=== PATIENT | male | born 1955 | race Caucasian/White ===

== ENCOUNTER → 2016-03-08 | Outpatient (CLI) | payer OTHER ==
[~2016-03-08] MED LIST: LIDOCAINE 2% MDV 20 ML VIAL As Ordered ONE; LIDOCAINE W/EPINEPHRINE 1% 20ML VIAL As Ordered ONE; SODIUM BICARBONATE 8.4% INJ 50MEQ 50 ML VIAL As Ordered ONE
--- NOTE | 2016-03-08 15:22 | REPKIM ---
CLINICAL HISTORY: Proteinuria and worsening creatinine. The referring nephrology service has asked a diagnostic kidney biopsy. PROCEDURE PERFORMED: Percutaneous Biopsy Kidney INTERVENTIONALIST: Jaclyn Garcia MD MEDICAL RECEPTION SPECIALIST: MALENA Marquez CONSENT: The risks, benefits and alternatives to the procedure were explained to the patient and informed written consent was obtained from the patient. MEDICATIONS: Local Lidocaine EBL: 10 mL COMPLICATIONS: None immediate PROCEDURE/FINDINGS: The patient was placed in the prone position on the CT table. Time out procedure was performed. The left flank was prepped and draped in the usual sterile fashion. Using CT guidance, a 17-gauge introducer needle was advanced to the targeted lower pole of the left kidney, after infiltration of the skin and deep tissues with local anesthetic. Then using coaxial technique, six passes were made using an 18-gauge biopsy device. The core specimens sent to pathology. The introducer needle was then removed after additional local lidocaine with epi at the biopsy sites and along its tract. Immediate post biopsy CT showed small hemorrhage at the biopsy sites. Direct manual pressure was applied over the skin entrance site. A sterile dressing was applied. This procedure was performed using CT. The patient tolerated the procedure well and transferred to the recovery room in stable condition. Dr. Garcia was present. IMPRESSION: Successful core biopsy of the left kidney as described above. Plan: Close observation in the recovery room with follow up non-contrast CT abdomen study in 3-4 hours. cc: Yazmin Ndiaye MD [facility]
--- NOTE | 2016-03-08 21:21 | REP ---
Clinical: Status post renal biopsy. Comparison: 02/29/2016. Findings: There appears to be a small amount of hemorrhage along the inferior aspect of the left kidney extending into the left perinephric pararenal space which measures maximally approximately 3.5 x 1.4 cm. Mild associated left perinephric stranding is appreciated as well. The bilateral kidneys are otherwise stable and grossly unremarkable by noncontrast evaluation in comparison to 02/29/2016. There appears to be peripancreatic stranding which may also involve the adjacent duodenum representing a new finding compared to prior examination and suspicious for pancreatitis/duodenitis. Liver, spleen, collapsed gallbladder, and bilateral adrenal glands are normal. The enteric system is unremarkable and without obstruction or acute inflammatory process. This demonstrates normal bladder and age appropriate prostate/seminal vesicles. No pelvic free fluid. No free air. No significant adenopathy. Osseous structures demonstrate age-related changes without focal osseous abnormality. Lung bases are clear. Impression: 1. Small amount of the left perinephric hemorrhage consistent with recent renal biopsy. 2. Peripancreatic stranding suspicious for acute pancreatitis/duodenitis and correlation is recommended. Signed by Terrence Gilliland MD 03/08/2016 09:12 P
== END | disposition home or self-care (01) ==
LOC: M IRPRO 07:56
PROVIDERS: ATTEND Internal Medicine Nephrology
DX: R80.8 Other proteinuria (principal)

== ENCOUNTER → 2016-05-05 | Outpatient (REF) | payer OTHER | LOC: M LAB REF 17:00 | PROVIDERS: ATTEND Internal Medicine Nephrology | DX: N04.2 Nephrotic syndrome with diffuse membranous glomerulonephritis (principal) ==

== ENCOUNTER → 2016-05-29 | Outpatient (CLI) | payer OTHER ==
[~2016-05-29] VITALS: Ht 170.2 cm; Wt 77.1 kg
[~2016-05-29] MED LIST changes: +AMLO10TA2 PO; +CRES5TAB PO; -LIDOCAINE 2% MDV 20 ML VIAL As Ordered ONE; -LIDOCAINE W/EPINEPHRINE 1% 20ML VIAL As Ordered ONE; +NS 1,000 ML IV SCH; +SERT-138 PO; -SODIUM BICARBONATE 8.4% INJ 50MEQ 50 ML VIAL As Ordered ONE; +SYMB16INH INH; +TORS10TA3 PO
--- NOTE | 2016-05-29 09:40 | ROOR ---
Patient Name: Ino Erickson Procedure Date: 05/29/2016 9:21 AM Date of : 1955 Age: 61 Room: [facility] Gender: Male Note Status: Finalized Procedure: Colonoscopy Indications: High risk colon cancer surveillance: Personal history of colonic polyps, Last colonoscopy: December 2012 Providers: Jignesh CROSS MD Referring MD: LEYDI MCKEON MD Requesting Provider: Medicines: Monitored Anesthesia Care Complications: No immediate complications. Procedure: Pre-Anesthesia Assessment: - The heart rate, respiratory rate, oxygen saturations, blood pressure, adequacy of pulmonary ventilation, and response to care were monitored throughout the procedure. The Colonoscope was introduced through the anus and advanced to the cecum, identified by appendiceal orifice and ileocecal valve. The colonoscopy was performed without difficulty. The patient tolerated the procedure well. The quality of the bowel preparation was good. Findings: The perianal and digital rectal examinations were normal. A 4 mm polyp was found in the cecum. The polyp was sessile. The polyp was removed with a cold snare. Resection and retrieval were complete. Internal hemorrhoids were found during retroflexion. The hemorrhoids were medium-sized. The exam was otherwise without abnormality on direct and retroflexion views. (Exam: Complete, Prep: Good or Excellent.) Impression: - One 4 mm polyp in the cecum, removed with a cold snare. Resected and retrieved. - Internal hemorrhoids. - The examination was otherwise normal on direct and retroflexion views. Recommendation: - Repeat colonoscopy in 5 years for surveillance based on personal history of previous adenomatous polyps. Jignesh Cross MD Jignesh CROSS MD 05/29/2016 9:40:11 AM This report has been signed electronically. Number of Addenda: 0 Note Initiated On: 05/29/2016 9:21 AM Estimated Blood Loss: Estimated blood loss: none.
[2016-05-29 09:55] VITALS: BP 143/87
== END ==
LOC: M OPP 08:39
PROVIDERS: ATTEND Internal Medicine Gastroenterology
DX: Z12.11 Encounter for screening for malignant neoplasm of colon (principal); Z86.010 Personal history of colon polyps; D12.0 Benign neoplasm of cecum; K64.8 Other hemorrhoids; I12.9 Hypertensive chronic kidney disease with stage 1 through stage 4 chronic kidney disease, or unspecified chronic kidney disease; N18.4 Chronic kidney disease, stage 4 (severe); E78.00 Pure hypercholesterolemia, unspecified; F41.9 Anxiety disorder, unspecified; J30.2 Other seasonal allergic rhinitis; R80.9 Proteinuria, unspecified; Z79.899 Other long term (current) drug therapy; Z87.891 Personal history of nicotine dependence

== ENCOUNTER → 2016-09-08 | Outpatient (REF) | payer OTHER ==
[~2016-09-08] MED LIST changes: -NS 1,000 ML IV SCH
[2016-09-08 18:17] LABS: BASO # 0.1 K/mm3 (0.0-0.2); BASO % 0.9 % (0.0-1.0); EOS # 0.3 K/mm3 (0.0-0.50); EOS % 3.4 % (0.0-3.0); LARGE UNSTAINED CELL # 0.2 K/mm3 (0.0-0.4); LARGE UNSTAINED CELL % 2.4 % (0.0-4.0); LYMPH # 1.7 K/mm3 (1.5-4.5); LYMPH % 17.9 % (24.0-44.0); MEAN CORPUSCULAR HEMOGLOBIN 31.5 pg (27.0-33.0); MEAN CORPUSCULAR HGB CONC 32.2 g/dl (32.0-36.5); MEAN CORPUSCULAR VOLUME 97.7 fl (80.0-96.0); MONO # 0.7 K/mm3 (0.0-0.8); MONO % 7.1 % (0.0-5.0); NEUTROPHILS # 6.4 K/mm3 (1.8-7.7); NEUTROPHILS % 68.3 % (36.0-66.0); PLATELET COUNT, AUTOMATED 307 k/mm3 (150-450); RED CELL DISTRIBUTION WIDTH 12.7 % (11.5-14.5); WHITE BLOOD COUNT 9.4 K/mm3 (4.0-10.0)
[2016-09-08 18:31] LABS: ALBUMIN 2.1 GM/DL (3.2-5.2); CALCIUM LEVEL 8.1 MG/DL (8.8-10.2); CREATININE FOR GFR 3.78 MG/DL (0.70-1.30); GLOMERULAR FILTRATION RATE 17.4 (>49); MAGNESIUM LEVEL 2.1 MG/DL (1.8-2.4); PHOSPHORUS LEVEL 4.6 MG/DL (2.5-4.9); URIC ACID 6.7 MG/DL (3.5-7.2)
[2016-09-08 18:33] LABS: POTASSIUM SERUM 5.2 MEQ/L (3.5-5.1)
== END ==
LOC: M LABSMT 17:04
PROVIDERS: ATTEND Internal Medicine Nephrology
DX: N03.2 Chronic nephritic syndrome with diffuse membranous glomerulonephritis (principal); N18.4 Chronic kidney disease, stage 4 (severe)

== ENCOUNTER → 2016-10-20 | Outpatient (REF) | payer OTHER ==
[2016-10-20 18:39] LABS: ALBUMIN 2.1 GM/DL (3.2-5.2); ALBUMIN/GLOBULIN RATIO 0.84 (1.00-1.93); ALKALINE PHOSPHATASE 57 U/L (45-117); ALT/SGPT 20 U/L (12-78); AST/SGOT 17 U/L (15-37); BILIRUBIN,DIRECT < 0.1 MG/DL (0.0-0.2); BILIRUBIN,TOTAL 0.2 MG/DL (0.2-1.0); CHOLESTEROL LEVEL 232 MG/DL (<200); TOTAL PROTEIN 4.6 GM/DL (6.4-8.2); TRIGLYCERIDES LEVEL 159 MG/DL (<150)
== END ==
LOC: M LAB REF 16:55
PROVIDERS: ATTEND Internal Medicine Nephrology
DX: N04.2 Nephrotic syndrome with diffuse membranous glomerulonephritis (principal)

== ENCOUNTER → 2016-12-25 | Outpatient (CLI) | payer OTHER | LOC: M LAB 09:47 | PROVIDERS: ATTEND Transplant Surgery | DX: Z01.818 Encounter for other preprocedural examination (principal); N18.6 End stage renal disease ==

== ENCOUNTER → 2017-01-12 | Outpatient (CLI) | payer OTHER ==
--- NOTE | 2017-01-12 16:02 | REP ---
Bilateral upper extremity venous duplex ultrasound: Vein mapping. History: End-stage renal disease. Findings: Incidental note is made of some lymph nodes in the left lower neck, the largest of which measures 1.0 x 0.9 x 1.7 cm. On the right normal triphasic flow is seen in the upper extremity arteries including axillary, brachial, radial and ulnar. On the left biphasic flow is seen in the axillary and triphasic flow is seen in the brachial, radial and ulnar. The right axillary artery is 7 mm, right brachial 4, right radial 1.8 mm and right ulnar diameter 1.5 mm. The left axillary artery is 4.7 mm in diameter, brachial 4.0, radial 2.0, and ulnar 1.3 mm. Arterial velocity flow chart right :Right axillary 78 cm/S Right brachial 76 Right radial 51 Right ulnar 47 Left upper extremity arterial velocity flow chart: Left axillary 102 cm/s Left brachial 54 Radial 37 Ulnar 40 There is no evidence of venous thrombosis in the upper extremity veins in either side. Venous diameter chart right arm: Upper humerus - basilic 3.2 cephalic 4.1 Lower humerus basilic 2.5 - cephalic 3.1 Antecubital fossa right basilic 2.1 cephalic 4.2 Upper forearm basilic 1.7 cephalic 1.9 Lower forearm basilic 1.3 cephalic 1.5 Wrist 1.2 and 1.3 Median cubital 3.6 mm Venous diameter chart left arm: Upper humerus basilic 3.0 - cephalic 2.4 mm Lower humerus basilic 1.9 cephalic 2.8 Antecubital basilic 2.2 cephalic 4.2 Upper forearm basilic 1.9 cephalic 2.4 Lower forearm basilic 1.1 cephalic 1.0 Wrist 0.9 and 0.5 Median cubital 1.6 mm Impression: Bilateral upper extremities Doppler ultrasound vein mapping. Signed by Gregorio Saleem MD 01/12/2017 04:53 P
== END ==
LOC: M RAD 12:18
PROVIDERS: ATTEND Surgery Vascular Surgery
DX: N18.6 End stage renal disease (principal)

== ENCOUNTER 2017-02-02 08:43 | Day surgery (SDC) | payer OTHER ==
[~2017-02-02] VITALS: Ht 167.6 cm; Wt 72.3 kg
[~2017-02-02 08:43] MED LIST changes: +ALLE180T33 PO; +ASPI1TAB PO; +BLEP10SO OD; +BYST2.5T2 PO; +DRIS50002 PO; +LISI2.5T3 PO; +[UNRECOGNIZED DRUG - CODE] EX
[2017-02-02] MEDS ORDERED: NS 1,000 ML IV ONE (09:00)
--- NOTE | 2017-02-02 12:17 | ECGEPIP ---
Stationary ECG Study [facility] Test Date: 2017-02-02 Pat Name: BARBARA KRISHNA Department: Room: - Gender: M Phone Counselor: TRANG : 1955 Requested By: John Alvarado Order Number: [id number] Reading MD: Loreta Garcia Measurements Intervals [place] Rate: 60 P: 52 [place]: 179 QRS: 72 QRSD: 95 T: 54 QT: 366 QTc: 368 Interpretive Statements SINUS RHYTHM NORMAL Electronically Signed On 02-02-2017 12:16:59 EST by Loreta Garcia
[2017-02-02] MEDS ORDERED: BUPIVACAINE HCL 0.5% 30 ML VIAL As Ordered ONE (12:44)
[2017-02-02] MEDS ORDERED: HEPARIN SOD (PORCINE) 5000 UNITS/ML VIAL As Ordered ONE ×2 (12:44→14:17)
[2017-02-02] MEDS ORDERED: LIDOCAINE 1% SDV INJ 30 ML VIAL As Ordered ONE (12:44)
[2017-02-02] MEDS ORDERED: PHENYLEPHRINE INJ 10MG/ML VIAL (J2370) As Ordered ONE (13:53)
[2017-02-02] MEDS ORDERED: PROPOFOL 200 MG/20 ML VIAL As Ordered ONE ×2 (13:53→14:02)
[2017-02-02] MEDS ORDERED: ePHEDrine SULFATE 25 MG/5 ML(5MG/ML) SYRINGE As Ordered ONE (14:01)
[2017-02-02] MEDS ORDERED: MIDAZOLAM INJ 2 MG/2 ML VIAL (J2250) As Ordered ONE ×2 (14:02→14:14)
[2017-02-02] MEDS ORDERED: fentaNYL 100 MCG/2 ML INJECTION (J3010) As Ordered ONE ×2 (14:02→14:16)
[2017-02-02] MEDS ORDERED: ONDANSETRON 4MG/2ML VIAL (J2405) As Ordered ONE (14:02)
[2017-02-02] MEDS ORDERED: LIDOCAINE 2% INJ 100 MG/5 ML SDV (FOR ANES.) As Ordered ONE (14:02)
[2017-02-02 15:48] VITALS: BP 143/83
--- NOTE | 2017-02-23 11:17 | RO ---
DATE OF PROCEDURE: 02/02/2017 PREPROCEDURE DIAGNOSIS: Chronic renal insufficiency nearing end stage renal disease. POSTPROCEDURE DIAGNOSIS: Chronic renal insufficiency nearing end stage renal disease. PROCEDURE: Left radiocephalic arteriovenous fistula formation. ATTENDING SURGEON: Dr. Jeff Reagan SOUND TECHNICIAN: None. INDICATION: The patient is a 61-year-old male with chronic renal insufficiency nearing end stage renal disease, who will require access for dialysis in the future. The patient was evaluated and felt to be a good candidate for a left radiocephalic, possible left brachiocephalic arteriovenous fistula. Risks, benefits, and alternative treatment options were discussed with the patient. ANESTHESIA: Local MAC. ESTIMATED BLOOD LOSS: 50 mL. IV FLUID: 1000 mL. HEPARIN: 5000 units. COMPLICATIONS: None. DRAINS: None. SPECIMENS: None. IMPLANTS: None. PROCEDURE: The patient was taken to the operating room and placed on the operating room table and then prepped and draped in a standard surgical fashion. Two incisions were made at the wrist, one over the cephalic vein and one over the radial artery. The cephalic vein and radial artery were dissected free sharply and then encircled with Vesseloops. Cephalic vein was transected as far as distal as possible with the remnant ligated with an #0 silk suture. The cephalic vein was then dilated with heparinized saline and brought to the radial artery to a tunnel between the two incisions and then anastomosed to the radial artery in an end to side fashion using #6-0 Prolene suture. At the completion of the anastomosis, there was poor flow in the vein and the anastomosis was taken down and redone with better flow noted in the fistula at the completion of the second anastomosis. Hemostasis was obtained, after which the incisions were closed using #3-0 Monocryl to approximate the skin in a running subcuticular fashion. Steri-Strips and dressings were applied. Patient tolerated the procedure well. All instrument, sponge and needle counts were correct at the end of the case. There were no complications. Dr. Reagan was present for and directed the entire case. Patient was transferred to the holding area and subsequently discharged in stable condition.
== END 2017-02-02 15:49 | disposition home or self-care (01) ==
LOC: M SDC 08:43
PROVIDERS: ATTEND Surgery Vascular Surgery
DX: N18.4 Chronic kidney disease, stage 4 (severe) (principal); I12.9 Hypertensive chronic kidney disease with stage 1 through stage 4 chronic kidney disease, or unspecified chronic kidney disease; E78.00 Pure hypercholesterolemia, unspecified; J45.909 Unspecified asthma, uncomplicated; J30.9 Allergic rhinitis, unspecified; Z79.899 Other long term (current) drug therapy; Z79.82 Long term (current) use of aspirin; Z87.891 Personal history of nicotine dependence
CPT/HCPCS: 36415; 36821; 84132; 93005; J2250; J2370; J2405; J3010

== ENCOUNTER → 2017-03-17 | Outpatient (CLI) | payer OTHER | LOC: M LAB 12:03 | DX: Z01.818 Encounter for other preprocedural examination (principal) ==

== ENCOUNTER → 2017-03-17 | Outpatient (CLI) | payer OTHER ==
[2017-03-17 13:08] LABS: CHOLESTEROL LEVEL 188 MG/DL (<200); CHOLESTEROL RISK RATIO 3.686 (<5); FREE T4 0.69 NG/DL (0.76-1.46); HDL CHOLESTEROL 51 MG/DL (>40); LDL CHOLESTEROL 108.4 MG/DL (<100); NON-HDL-C 137 MG/DL; TRIGLYCERIDES LEVEL 143 MG/DL (<150)
== END ==
LOC: M LAB 11:53
DX: E78.5 Hyperlipidemia, unspecified (principal)

== ENCOUNTER → 2017-03-23 | Outpatient (REF) | payer OTHER ==
[2017-03-23 21:11] LABS: FERRITIN 123 NG/ML (26-388); IRON (FE) 64 UG/DL (65-175); PERCENT SATURATION 28.3 % (19.7-50.0); TOTAL IRON BINDING CAPACITY 226 UG/DL (250-450)
[2017-03-26 11:47] LABS: VITAMIN B12 LEVEL 350 PG/ML
[2017-03-26 11:49] LABS: FOLATE 7.3 NG/ML
== END ==
LOC: M LAB REF 17:18
DX: D64.9 Anemia, unspecified (principal)

== ENCOUNTER → 2017-03-23 | Outpatient (CLI) | payer OTHER | LOC: M LAB 10:36 | DX: Z01.818 Encounter for other preprocedural examination (principal); Z76.82 Awaiting organ transplant status ==

== ENCOUNTER → 2017-04-27 | Outpatient (CLI) | payer OTHER | LOC: M LAB 12:53 | DX: Z01.818 Encounter for other preprocedural examination (principal) ==

== ENCOUNTER → 2017-05-18 | Outpatient (CLI) | payer OTHER ==
[2017-05-18 17:57] LABS: BASO # 0.1 10^3/uL (0.0-0.2); EOS # 0.3 10^3/uL (0.0-0.50); EOS % 4.1 % (0.0-3.0); HEMATOCRIT 38.3 % (42.0-52.0); HEMOGLOBIN 11.9 g/dl (14.0-18.0); IMMATURE GRANULOCYTE % 0.4 % (0-3.0); LYMPH # 1.6 10^3/uL (1.5-4.5); LYMPH % 20.5 % (24.0-44.0); MEAN CORPUSCULAR HEMOGLOBIN 29.9 pg (27.0-33.0); MEAN CORPUSCULAR HGB CONC 31.1 g/dl (32.0-36.5); MEAN CORPUSCULAR VOLUME 96.2 fl (80.0-96.0); MONO # 0.7 10^3/uL (0.0-0.8); MONO % 8.2 % (0.0-5.0); NEUTROPHILS # 5.2 10^3/uL (1.8-7.7); NEUTROPHILS % 65.8 % (36.0-66.0); PLATELET COUNT, AUTOMATED 253 10^3/uL (150-450); RED BLOOD COUNT 3.98 10^6/uL (4.30-6.10); WHITE BLOOD COUNT 7.9 10^3/uL (4.0-10.0)
== END ==
LOC: M SMT 14:24
DX: R59.0 Localized enlarged lymph nodes (principal)
CPT/HCPCS: 85025

== ENCOUNTER → 2017-06-01 | Outpatient (CLI) | payer OTHER | LOC: M LAB 13:44 | DX: Z01.818 Encounter for other preprocedural examination (principal) | CPT/HCPCS: 36415 ==

== ENCOUNTER → 2017-06-01 | Outpatient (CLI) | payer OTHER | LOC: M RAD 13:21 | DX: N18.4 Chronic kidney disease, stage 4 (severe) (principal); R59.0 Localized enlarged lymph nodes | CPT/HCPCS: 70490 ==

== ENCOUNTER → 2017-07-30 | Outpatient (CLI) | payer OTHER ==
[2017-07-30 11:14] LABS: INR 0.89; PROTHROMBIN TIME 12.1 SECONDS (12.4-14.5)
[2017-07-30 11:15] LABS: PARTIAL THROMBOPLASTIN TIME 26.4 SECONDS (26.8-37.9)
== END ==
LOC: M LAB 10:42
DX: C83.11 Mantle cell lymphoma, lymph nodes of head, face, and neck (principal)
CPT/HCPCS: 85610

== ENCOUNTER → 2017-08-10 | Outpatient (REF) | payer OTHER ==
[2017-08-10 14:03] LABS: CHOLESTEROL LEVEL 227 MG/DL (<200); CHOLESTEROL RISK RATIO 4.053 (<5); HDL CHOLESTEROL 56 MG/DL (>40); LDL CHOLESTEROL 127.2 MG/DL (<100); NON-HDL-C 171 MG/DL; TRIGLYCERIDES LEVEL 219 MG/DL (<150)
== END ==
LOC: M LAB REF 13:20
DX: N18.5 Chronic kidney disease, stage 5 (principal)

== ENCOUNTER → 2017-10-12 | Outpatient (CLI) | payer OTHER | LOC: M ONCR 13:16 | DX: Z08 Encounter for follow-up examination after completed treatment for malignant neoplasm (principal); C83.11 Mantle cell lymphoma, lymph nodes of head, face, and neck | CPT/HCPCS: G0463 ==

== ENCOUNTER → 2017-10-30 | Outpatient (CLI) | payer OTHER | LOC: M PLARAD 12:12 | DX: C83.11 Mantle cell lymphoma, lymph nodes of head, face, and neck (principal) | CPT/HCPCS: 78815 ==

== ENCOUNTER 2017-11-06 13:57 | Outpatient (RCR) | payer OTHER | END 2017-12-02 | LOC: M ONCR 13:57 | DX: C83.11 Mantle cell lymphoma, lymph nodes of head, face, and neck (principal) | CPT/HCPCS: 77300 ==

== ENCOUNTER 2017-12-03 08:04 | Outpatient (RCR) | payer OTHER | END 2018-01-02 | LOC: M ONCR 12-04 08:01 | DX: C83.11 Mantle cell lymphoma, lymph nodes of head, face, and neck (principal) | CPT/HCPCS: 77336 ==

== ENCOUNTER → 2017-12-14 | Outpatient (REF) | payer OTHER ==
[2017-12-14 18:28] LABS: CHOLESTEROL LEVEL 169 MG/DL (<200); CHOLESTEROL RISK RATIO 3.188 (<5); HDL CHOLESTEROL 53 MG/DL (>40); LDL CHOLESTEROL 91 MG/DL (<100); NON-HDL-C 116 MG/DL; TRIGLYCERIDES LEVEL 125 MG/DL (<150)
[2017-12-17 10:28] LABS: HEPATITIS B SURFACE ANTIBODY NEGATIVE (POSITIVE)
[2017-12-17 10:39] LABS: HEPATITIS B SURFACE ANTIGEN NEGATIVE (NEGATIVE)
[2017-12-17 11:07] LABS: HEPATITIS C VIRUS ABY INDEX < 0.0 INDEX (<0.8)
[2017-12-17 11:08] LABS: HEPATITIS B CORE ANTIBODY IGM NEGATIVE (NEGATIVE)
== END ==
LOC: M LAB REF 16:45
DX: N18.5 Chronic kidney disease, stage 5 (principal)
CPT/HCPCS: 86706

== ENCOUNTER → 2017-12-16 | Outpatient (REF) | payer OTHER ==
[2017-12-17 14:07] LABS: CREATININE, URINE 56.8 MG/DL; URINE TOTAL PROTEIN 208.4 MG/DL (0-12)
[2017-12-17 21:38] LABS: CREATININE 24 HOUR, URINE 1050.8 MG/24HR (950-2500); TOTAL PROTEIN 24 HOUR URINE 3855.4 MG/24HR (50-150); TOTAL VOLUME, URINE 1850 ML
== END ==
LOC: M LAB REF 13:02
DX: N18.4 Chronic kidney disease, stage 4 (severe) (principal)

== ENCOUNTER → 2017-12-28 | Outpatient (CLI) | payer OTHER ==
[~2017-12-28] MED LIST changes: -ALLE180T33 PO; -AMLO10TA2 PO; -ASPI1TAB PO; -BLEP10SO OD; -BYST2.5T2 PO; -CRES5TAB PO; -DRIS50002 PO; +ISOVUE-300 61% 50ML VIAL (Q9967) As Ordered; +LIDOCAINE 2% MDV 20 ML VIAL As Ordered; -LISI2.5T3 PO; +MIDAZOLAM INJ 2 MG/2 ML VIAL (J2250) As Ordered; -SERT-138 PO; -SYMB16INH INH; -TORS10TA3 PO; -[UNRECOGNIZED DRUG - CODE] EX; +fentaNYL 100 MCG/2 ML INJECTION (J3010) As Ordered
== END | disposition home or self-care (01) ==
LOC: M IRPRO 09:00
DX: T82.858A Stenosis of other vascular prosthetic devices, implants and grafts, initial encounter (principal); N18.9 Chronic kidney disease, unspecified
CPT/HCPCS: 36902

== ENCOUNTER → 2018-02-01 | Outpatient (CLI) | payer OTHER | LOC: M ONCR 12:42 | DX: C83.11 Mantle cell lymphoma, lymph nodes of head, face, and neck (principal) ==

== ENCOUNTER → 2018-02-01 | Outpatient (CLI) | payer OTHER ==
[~2018-02-01] MED LIST changes: -MIDAZOLAM INJ 2 MG/2 ML VIAL (J2250) As Ordered; -fentaNYL 100 MCG/2 ML INJECTION (J3010) As Ordered
== END ==
LOC: M IRPRO 06:26
DX: N18.6 End stage renal disease (principal); Z53.8 Procedure and treatment not carried out for other reasons

== ENCOUNTER → 2018-02-19 | Outpatient (CLI) | payer OTHER ==
[~2018-02-19] MED LIST changes: +ALLE180T33 PO; +AMLO10TA5 PO; +ASPI1TAB PO; +BLEP10SO OD; +BYST2.5T2 PO; +CALC1CAP; +CRES5TAB PO; +DRIS50003 PO; -ISOVUE-300 61% 50ML VIAL (Q9967) As Ordered; +LEVO50TA5; -LIDOCAINE 2% MDV 20 ML VIAL As Ordered; +LISI2.5T5 PO; +SERT-138 PO; +SODIUM CHLORIDE 0.9% INJ 10 ML SYR IV PRN; +SYMB16INH INH; +TORS10TA3 PO; +[UNRECOGNIZED DRUG - CODE] EX
== END ==
LOC: M ONCM 12:54
PROVIDERS: ATTEND Radiology Radiation Oncology
DX: C83.11 Mantle cell lymphoma, lymph nodes of head, face, and neck (principal)
CPT/HCPCS: 96523; J1642

== ENCOUNTER → 2018-02-19 | Outpatient (CLI) | payer OTHER ==
[~2018-02-19] MED LIST changes: +AMLO10TA4 PO; -AMLO10TA5 PO; -SODIUM CHLORIDE 0.9% INJ 10 ML SYR IV PRN
--- NOTE | 2018-02-19 16:01 | REP ---
PET/CT: History: Restaging mantel cell lymphoma. Comparisons: Comparison PET-CT studies are from October 30, 2017 and July 16, 2017. TECHNIQUE: 1 hour 9 minutes following the intravenous injection of a 7.8 mCi dose of F-18 FDG, three-dimensional PET scintigraphy is acquired from the skull vertex to the proximal thighs. Triplanar noncontrast CT scanning is acquired through the same anatomic range for attenuation correction, and image registration with scan parameters optimized to minimize radiation exposure to the patient. PET scintigraphy and CT datasets were fused and displayed on a workstation with multiplanar and projection display capability. PET/CT Findings: Head and neck soft tissues remain unremarkable. No abnormal hypermetabolic sandee uptake is seen in the head and neck on either side. There is a right-sided Hbibgl-O-Cxpr catheter. No mediastinal or hilar hypermetabolic sandee uptake is seen. No abnormal hypermetabolic uptake is seen within the thorax. Stable perifissural nodule is seen on the right without discernible FDG accumulation. No other abnormal pulmonary parenchymal FDG accumulation is seen. In the abdomen and pelvis, there is normal hepatic, splenic, gastrointestinal, and genitourinary FDG accumulation. No abnormal sandee uptake is seen. Impression: Negative PET scintigraphy, unchanged from the comparison study of October 30, 2017. No abnormal hypermetabolic uptake. Electronically Signed by Gregorio Saleem MD 02/19/2018 04:15 P
== END ==
LOC: M PLARAD 09:52
PROVIDERS: ATTEND Internal Medicine Hematology & Oncology
DX: C83.11 Mantle cell lymphoma, lymph nodes of head, face, and neck (principal)
CPT/HCPCS: 78815; A9552

== ENCOUNTER → 2018-02-22 | Outpatient (CLI) | payer OTHER ==
[~2018-02-22] MED LIST changes: -AMLO10TA4 PO; +AMLO10TA5 PO
--- NOTE | 2018-02-22 21:01 | ECGEPIP ---
Stationary ECG Study [facility] Test Date: 2018-02-22 Pat Name: BARBARA KRISHNA Department: Room: - Gender: M Personnel Security Assistant: [facility] : 1955 Requested By: REYNOLD Nash Order Number: [id number] Reading MD: Santo Burton Measurements Intervals [place] Rate: 74 P: 56 MT: 173 QRS: 65 QRSD: 105 T: 61 QT: 361 QTc: 401 Interpretive Statements SINUS RHYTHM NO CHANGE SINCE 02/02/17 Electronically Signed On 02-22-2018 21:01:02 EST by Santo Burton
== END ==
LOC: M EKG 16:56
PROVIDERS: ATTEND Anesthesiology
DX: Z01.818 Encounter for other preprocedural examination (principal)

== ENCOUNTER 2018-03-01 12:29 | Day surgery (SDC) | payer OTHER ==
[~2018-03-01] VITALS: Ht 167.6 cm; Wt 64.0 kg
[2018-03-01 13:14] LABS: CALCIUM LEVEL 9.4 MG/DL (8.8-10.2); CREATININE FOR GFR 3.65 MG/DL (0.70-1.30); POTASSIUM SERUM 5.2 MEQ/L (3.5-5.1)
[2018-03-01] MEDS ORDERED: LR 1,000 ML IV ONE (13:15)
[2018-03-01] MEDS ORDERED: MIDAZOLAM INJ 2 MG/2 ML VIAL (J2250) As Ordered ONE (14:02)
[2018-03-01] MEDS ORDERED: PROPOFOL 200 MG/20 ML VIAL As Ordered ONE (14:02)
[2018-03-01] MEDS ORDERED: LIDOCAINE 2% INJ 100 MG/5 ML SDV (FOR ANES.) As Ordered ONE (14:02)
[2018-03-01] MEDS ORDERED: fentaNYL 100 MCG/2 ML INJECTION (J3010) As Ordered ONE (14:02)
[2018-03-01] MEDS ORDERED: NS 0.45% 1,000 ML IV SCH (14:30)
[2018-03-01] MEDS ORDERED: LIDOCAINE 1% SDV INJ 30 ML VIAL As Ordered ONE (17:45)
[2018-03-01] MEDS ORDERED: ISOVUE-300 61% 50ML VIAL (Q9967) As Ordered ONE (17:46)
[2018-03-01] MEDS ORDERED: BUPIVACAINE HCL 0.5% 30 ML VIAL As Ordered ONE (17:46)
[2018-03-01] MEDS ORDERED: HEPARIN SOD (PORCINE) 5000 UNITS/ML VIAL As Ordered ONE (17:46)
[2018-03-01 19:45] VITALS: BP 169/78
--- NOTE | 2018-03-29 09:05 | RO ---
DATE OF PROCEDURE: 03/01/2018 PREOPERATIVE DIAGNOSES: Chronic renal insufficiency nearing end-stage renal disease, thrombosed left brachiocephalic arterial radiocephalic arteriovenous fistula. POSTOPERATIVE DIAGNOSES: Chronic renal insufficiency nearing end-stage renal disease, thrombosed left brachiocephalic arterial radiocephalic arteriovenous fistula. PROCEDURE: Left brachiocephalic arteriovenous fistula creation. SURGEON: Dr. Jeff Reagan BAG MACHINE HELPER: Jenny Moy PA-C ANESTHESIA: Local, monitored anesthesia care (MAC). INDICATION: The patient is a 62-year-old male with chronic renal insufficiency nearing the requirement for renal replacement therapy and end-stage renal disease, wishes to undergo hemodialysis and will undergo creation of a left brachiocephalic arteriovenous fistula for hemodialysis and for renal replacement therapy. The procedure was described and explained to the patient in detail, including drawing of pictures demonstrating the procedure and anatomy. Risks, benefits, and alternative treatment options were discussed with the patient. Alternative treatment options included, but were not limited to, no intervention. Benefits included, but were not limited to, creation of access for hemodialysis access when the time arises for renal replacement therapy, avoiding placement of a tunneled central venous catheter. Risks included, but were not limited to, infection, bleeding, failure of arteriovenous fistula to maintain patency with thrombosis, failure of arteriovenous fistula to mature requiring secondary intervention, steal syndrome, possible need for further open surgical intervention, cerebrovascular accident, myocardial infarction, pulmonary embolus, deep venous thrombosis (DVT), loss of limb, loss of life, poor outcome, and poor results. Patient voices understanding and acceptance of these risks, benefits, and alternative treatment options and consents to proceed with a left brachiocephalic arteriovenous fistula. All of the patient's questions were answered. There were no guarantees or promises made regarding the procedure and/or outcome to the patient. ESTIMATED BLOOD LOSS: 20 mL. INTRAVENOUS (IV) FLUID: 400 mL. HEPARIN: None. COMPLICATIONS: None. DRAINS: None. SPECIMENS: None. DESCRIPTION OF PROCEDURE: Patient was taken to the operating room, placed supine on the operating room table, and the left upper extremity was prepped and draped in a standard surgical fashion. An incision was made transversely at the antecubital fossa. The brachial artery was identified after sharply dissected proximally and distally and encircled with Vesseloops. The cephalic vein was identified, sharply dissected proximally and distally. Cephalic vein was transected after being ligated as far distal as possible. Cephalic vein was dilated with heparinized saline and then brought to the brachial artery. An arteriotomy was made in the brachial artery after the brachial artery was clamped proximally and distally, and the cephalic vein was anastomosed to the brachial artery in an end-to-side fashion using #6-0 Prolene suture. Flow was re-established to the brachial artery with removal of clamp. This showed good flow to the brachial artery proximal and distal to the arteriovenous anastomosis as well as good flow into the arteriovenous fistula. Hemostasis was obtained, after which the incision was closed using #3-0 Monocryl in a running subcuticular fashion. Steri-Strips and dressings were applied. Patient tolerated the procedure well. All instrument, sponge, and needle counts were correct at the end of the case. There were no complications. Dr. Reagan was present for and directed the entire case. The patient was transferred to the recovery room awake, alert, extubated, and in stable condition. The procedure and results were discussed with the patient with all of his questions being answered.
== END 2018-03-01 19:56 | disposition home or self-care (01) ==
LOC: M SDC 12:29
PROVIDERS: ATTEND Surgery Vascular Surgery
DX: N18.9 Chronic kidney disease, unspecified (principal)
CPT/HCPCS: 36415; 36821; 80048; J2250; J3010

== ENCOUNTER → 2018-04-12 | Outpatient (CLI) | payer OTHER | LOC: M IRPRO 09:37 | PROVIDERS: ATTEND Surgery Vascular Surgery | DX: N18.6 End stage renal disease (principal); Z53.29 Procedure and treatment not carried out because of patient's decision for other reasons ==

== ENCOUNTER → 2019-08-01 | Outpatient (REF) | payer OTHER ==
[~2019-08-01] MED LIST changes: -ASPI1TAB PO; +ASPI81TA26 PO; +LISI2.5T2 PO; -LISI2.5T5 PO
== END ==
LOC: M LAB REF 16:40
PROVIDERS: ATTEND Internal Medicine Nephrology
DX: N03.2 Chronic nephritic syndrome with diffuse membranous glomerulonephritis (principal)

== ENCOUNTER → 2019-08-08 | Outpatient (CLI) | payer OTHER ==
[~2019-08-08] MED LIST changes: +[UNRECOGNIZED DRUG - CODE] EX; -[UNRECOGNIZED DRUG - CODE] EX
--- NOTE | 2019-08-08 10:44 | REPPI ---
TWO-VIEW CHEST: REASON: Possible organ transplantation. PRIORS: 01/03/2004 FINDINGS: The superior mediastinal structures are midline. The cardiac silhouette is unremarkable in size, shape, and position. The diaphragmatic surfaces of the lungs are regular, and the costophrenic angles are clear. The pulmonary claire are clear. The imaged osseous structures are intact. IMPRESSION: There is no acute cardiopulmonary disease. No significant change from the prior exam. Electronically Signed by Luis A Cui DO 08/08/2019 11:15 A
== END ==
LOC: M PLAIMG 09:41
PROVIDERS: ATTEND Transplant Surgery
DX: Z01.818 Encounter for other preprocedural examination (principal); Z76.82 Awaiting organ transplant status

== ENCOUNTER → 2019-08-08 | Outpatient (CLI) | payer OTHER ==
--- NOTE | 2019-08-08 13:41 | REP ---
REASON: Renal transplant workup. Multiple ultrasonographic images of the gallbladder show multiple echogenic foci adherent to the gallbladder wall without casting acoustic shadows or comet-tail artifact. The largest of these measures 6 mm, 3 mm, and 2 mm in their greatest dimensions. There is no diffuse gallbladder wall thickening or pericholecystic edema. There are no sebas choleliths. The common bile duct measures 3 mm. Ultrasonographic evaluation of the liver shows no abnormalities. There is no intrahepatic ductal dilatation. The greatest hepatic dimension is 14 cm. The pancreas could not be evaluated due to the patient's intestinal gas pattern. The maximal splenic dimension is 8.1 cm, and there are no splenic or perisplenic abnormalities. The right kidney measures 9.5 x 4.7 x 4.7 cm and the left kidney measures 8.9 x 5.1 x 4.9 cm. Both kidneys are within normal limits showing no cystic or solid masses. There is no hydronephrosis or nephrolithiasis by ultrasound. The abdominal aorta could not be visualized due to the intestinal gas pattern. No free fluid was seen in the abdomen. IMPRESSION: 1. Multiple gallbladder polyps are suspected. Followup in 3 months is recommended. 2. Inability to image the pancreas, as described above. 3. No other abnormalities, as described above.
== END ==
LOC: M WHC 09:00
PROVIDERS: ATTEND Transplant Surgery
DX: Z01.818 Encounter for other preprocedural examination (principal); Z76.82 Awaiting organ transplant status

== ENCOUNTER → 2019-09-06 | Outpatient (CLI) | payer MEDICARE, OTHER ==
[~2019-09-06] MED LIST changes: +ALLE1TAB23 PO; -AMLO10TA5 PO; +AMLO1TAB25 PO; +SODI650T PO
[2019-09-06 16:35] LABS: ALBUMIN 2.3 GM/DL (3.2-5.2); ALT/SGPT 24 U/L (12-78); BILIRUBIN,DIRECT < 0.1 MG/DL (0.0-0.2); BILIRUBIN,TOTAL 0.1 MG/DL (0.2-1.0); CHOLESTEROL LEVEL 254 MG/DL (<200); CHOLESTEROL RISK RATIO 3.097 (<5); HDL CHOLESTEROL 82 MG/DL (>40); LDL CHOLESTEROL 150 MG/DL (<100); NON-HDL-C 172 MG/DL; TOTAL PROTEIN 4.7 GM/DL (6.4-8.2); TRIGLYCERIDES LEVEL 109 MG/DL (<150)
[2019-09-08 08:32] LABS: HEPATITIS B SURFACE ANTIBODY NEGATIVE (POSITIVE)
[2019-09-08 08:43] LABS: HEPATITIS B SURFACE ANTIGEN NEGATIVE (NEGATIVE)
[2019-09-08 09:11] LABS: HEPATITIS C VIRUS ABY INDEX 0.1 INDEX (<0.8); HIV 1&2 SCREEN CENTAUR NEGATIVE (NEGATIVE)
[2019-09-09 23:07] LABS: CYTOMEGALOVIRUS IgG ANTIBODY <0.60 U/mL (0.00-0.59); G6PD2 3.79 x10E6/uL (4.14-5.80); PSA TOTAL 1.7 ng/mL (0.0-4.0)
== END ==
LOC: M LAB 12:44
PROVIDERS: ATTEND Transplant Surgery
DX: Z00.00 Encounter for general adult medical examination without abnormal findings (principal); R97.20 Elevated prostate specific antigen [PSA]; E78.00 Pure hypercholesterolemia, unspecified

== ENCOUNTER → 2019-09-29 | Outpatient (CLI) | payer MEDICARE, OTHER | LOC: M LAB 08:09 | PROVIDERS: ATTEND Transplant Surgery | DX: Z01.818 Encounter for other preprocedural examination (principal) ==

== ENCOUNTER → 2019-10-27 | Outpatient (REF) | payer MEDICARE, OTHER | LOC: M LAB REF 12:05 | PROVIDERS: ATTEND Dermatology | DX: C44.41 Basal cell carcinoma of skin of scalp and neck (principal) | CPT/HCPCS: 11102; 88305; G0463 ==

== ENCOUNTER → 2019-11-01 | Outpatient (CLI) | payer MEDICARE, OTHER ==
[2019-11-01 16:27] LABS: ALBUMIN 2.2 GM/DL (3.2-5.2); ALT/SGPT 22 U/L (12-78); BILIRUBIN,DIRECT < 0.1 MG/DL (0.0-0.2); BILIRUBIN,TOTAL 0.1 MG/DL (0.2-1.0); CHOLESTEROL LEVEL 220 MG/DL (<200); HDL CHOLESTEROL 94 MG/DL (>40); LDL CHOLESTEROL 100 MG/DL (<100); MAGNESIUM LEVEL 2.4 MG/DL (1.8-2.4); NON-HDL-C 126 MG/DL; PHOSPHORUS LEVEL 6.3 MG/DL (2.5-4.9); TOTAL PROTEIN 4.7 GM/DL (6.4-8.2); TRIGLYCERIDES LEVEL 132 MG/DL (<150)
[2019-11-03 10:57] LABS: HEPATITIS B SURFACE ANTIGEN NEGATIVE (NEGATIVE)
[2019-11-03 11:26] LABS: HEPATITIS C VIRUS ABY INDEX 0.2 INDEX (<0.8); HIV 1&2 SCREEN CENTAUR NEGATIVE (NEGATIVE)
[2019-11-05 00:08] LABS: CYTOMEGALOVIRUS IgG ANTIBODY <0.60 U/mL (0.00-0.59); G6PD2 3.25 x10E6/uL (4.14-5.80); PSA TOTAL 1.5 ng/mL (0.0-4.0)
== END ==
LOC: M LAB 15:16
PROVIDERS: ATTEND Transplant Surgery
DX: Z01.818 Encounter for other preprocedural examination (principal)

== ENCOUNTER → 2019-12-29 | Outpatient (CLI) | payer OTHER | LOC: M LAB 13:51 | PROVIDERS: ATTEND Transplant Surgery | DX: Z01.818 Encounter for other preprocedural examination (principal) ==

== ENCOUNTER → 2020-01-28 | Outpatient (CLI) | payer OTHER | LOC: M LAB 13:50 | PROVIDERS: ATTEND Transplant Surgery | DX: Z01.818 Encounter for other preprocedural examination (principal) ==

== ENCOUNTER → 2020-03-08 | Outpatient (CLI) | payer OTHER | LOC: M LAB 13:55 | PROVIDERS: ATTEND Transplant Surgery | DX: Z01.818 Encounter for other preprocedural examination (principal) ==

== ENCOUNTER → 2020-03-09 | Outpatient (REF) | payer MEDICARE, OTHER ==
[2020-03-09 20:48] LABS: HEPATITIS B CORE ANTIBODY IGM NEGATIVE (NEGATIVE); HEPATITIS B SURFACE ANTIBODY NEGATIVE (POSITIVE); HEPATITIS B SURFACE ANTIGEN NEGATIVE (NEGATIVE); HEPATITIS C VIRUS ABY INDEX 0.1 INDEX (<0.8)
== END ==
LOC: M LAB REF 17:05
PROVIDERS: ATTEND Internal Medicine Nephrology
DX: N18.5 Chronic kidney disease, stage 5 (principal); I15.0 Renovascular hypertension; Z85.72 Personal history of non-Hodgkin lymphomas

== ENCOUNTER → 2020-03-09 | Outpatient (CLI) | payer MEDICARE, OTHER ==
[~2020-03-09] MED LIST changes: +LIDOCAINE W/EPINEPHRINE 1% 20ML VIAL As Ordered ONE; +MIDAZOLAM INJ 2MG/2ML VIAL (J2250 PER 1MG) As Ordered ONE; +ceFAZolin 1GM VIAL (J0690 PER 500MG) As Ordered ONE; +fentaNYL 100 MCG/2 ML INJECTION (J3010) As Ordered ONE; +hydrALAZINE 20MG/ML 1ML VIAL (J0360 PER 20MG) As Ordered ONE
--- NOTE | 2020-03-09 16:54 | ROOPDOC ---
[facility] Report Of Operation Report of Operation DATE OF PROCEDURE: 03/09/20 PREPROCEDURE DIAGNOSES: End-stage renal disease requiring access for dialysis POSTPROCEDURE DIAGNOSES: Same PROCEDURE: 1. Ultrasound-guided access right internal jugular vein 2. Placement of a 23 cm tunneled right IJ PermCath SURGEON: Colin Ngo MD ANESTHESIA: Local anesthesia 17 mL lidocaine. Moderate intravenous conscious sedation was supervised by Dr. Ngo. The patient was independently monitored by registered nurse assigned to the Department of radiology using automated blood pressure, EKG, and pulse oximetry. The detailed sedation record is permanently stored in the hospital information system. The following is a brief sedation record: Start time 16:23, stop time 16:37, Versed 1 mg IV, fentanyl 50 g IV, Ancef 2 g IV. INDICATION FOR PROCEDURE: This is a very pleasant 65-year-old gentleman who has progressed from stage IV to stage V renal failure requiring access for dialysis. Risks benefits alternatives to PermCath placement were explained and he is agreeable to proceed. Informed consent was obtained. INTERPRETATION: The PermCath is in good position with no kinks in the catheter, and the tip really mobile at the right atrial SVC junction. There is no pneumothorax. It is okay to use the PermCath for dialysis. REPORT OF OPERATION: The patient was brought to the angiographic suite in stable condition. His right neck and chest were prepped and draped in sterile fashion. A timeout was performed. Sedation was administered along with antibiotics without complication. Local anesthesia was administered to the skin and subcutaneous tissue over the right chest and neck. A microneedle was used to access the jugular vein under ultrasound guidance. A wire was passed through this access and the needle was removed. A micro-sheath was placed. A small incision was made at the jugular access site and a counterincision was made on the right lateral chest 1 cm distal to the clavicle. 2 serial dilations were performed over the wire using the Seldinger technique and a peel-away sheath was placed over the wire into the SVC under fluoroscopic guidance. The PermCath was tunneled from the right chest to the jugular access site until the cuff was within the subcutaneous tissue. The tips of the catheter were then placed through the peel-away sheath into the central system in the peel-away sheath was removed. Both ports abi back and flushed easily and were heparin locked. Appropriate caps were placed. Final imaging showed the catheter to be in good position with no kinks in the catheter. There is no pneumothorax, there are no kinks in the catheter and is okay to use the catheter for dialysis. The jugular access site was irrigated with saline and closed with deep and superficial dermal Monocryl sutures. Dermabond was placed at the skin. The exit site on the right chest was closed with an interrupted Prolene suture. 2 additional Prolene sutures were used to secure the catheter to the chest wall. Sterile dressings were applied. The patient was then allowed to awaken and taken to recovery in stable condition. His head of bed was elevated to diminished venous pressure and minimize risk of bruising and bleeding. He tolerated the procedure and the sedation well. ESTIMATED BLOOD LOSS: Approximately 5 mL. COMPLICATIONS: none. PLAN: It is okay to use the PermCath for dialysis. It is okay to resume home diet and medications. We will plan on seeing the patient back in clinic to discuss results of his vein mapping. I asked that a new vein mapping be obtained to evaluate for options for AV fistula. The patient has had to have a failed AV fistulas in the past by another provider, but I'm hopeful he hasn't option for successful AV fistula based on the new vein mapping. We appreciate the opportunity to participate in the care of this patient. COLIN NGO MD Mar 09, 2020 16:54
[2020-03-09 17:20] VITALS: BP 192/93
== END ==
LOC: M IRPRO 14:55
PROVIDERS: ATTEND Surgery Vascular Surgery
DX: N18.6 End stage renal disease (principal); I15.0 Renovascular hypertension; E78.00 Pure hypercholesterolemia, unspecified; F41.9 Anxiety disorder, unspecified; R80.9 Proteinuria, unspecified; Z79.82 Long term (current) use of aspirin; Z79.890 Hormone replacement therapy; Z79.899 Other long term (current) drug therapy; Z85.72 Personal history of non-Hodgkin lymphomas; Z87.891 Personal history of nicotine dependence; Z99.2 Dependence on renal dialysis; Z11.59 Encounter for screening for other viral diseases
CPT/HCPCS: 36558; 86705; 86706; 86803; 87340; 99152; C1750; C1894; J0360; J0690; J1644; J2250; J3010

== ENCOUNTER → 2020-03-11 | Outpatient (CLI) | payer MEDICARE, OTHER ==
[~2020-03-11] MED LIST changes: -LIDOCAINE W/EPINEPHRINE 1% 20ML VIAL As Ordered ONE; -MIDAZOLAM INJ 2MG/2ML VIAL (J2250 PER 1MG) As Ordered ONE; -ceFAZolin 1GM VIAL (J0690 PER 500MG) As Ordered ONE; -fentaNYL 100 MCG/2 ML INJECTION (J3010) As Ordered ONE; -hydrALAZINE 20MG/ML 1ML VIAL (J0360 PER 20MG) As Ordered ONE
--- NOTE | 2020-03-11 15:53 | REP ---
INDICATION: ESRD COMPARISON: 01/12/2017. TECHNIQUE: Real time compression and duplex Doppler evaluation of the Bilateral upper extremity deep venous system is performed. FINDINGS: The Bilateral subclavian, jugular, axillary, brachial, basilic and cephalic veins are fully compressible where accessible with transducer pressure, and demonstrate no intraluminal thrombus and normal venous waveforms. There is no evidence of deep venous thrombosis. Right: Basilic vein size (mm)/ Cephalic vein size (mm) Upper humerus: 3/4 Lower humerus:3/4 Upper forearm: 2/2 Lower forearm/wrist: 2/2 Median cubital:- Right arterial structures: Peak systolic velocity (cm/s)/waveform/size (mm) Axillary: 92.5/triphasic/7 Brachial: 95.4/triphasic/5 Radial: 76.3/triphasic/2 Ulnar:63.2/triphasic/2 Left: Basilic vein size (mm)/ Cephalic vein size (mm) Upper humerus: 4/4 Lower humerus:3/3 Upper forearm: 1/ Lower forearm/wrist:03/05 Median cubital:3 Left arterial structures: Peak systolic velocity (cm/s)/waveform/size (mm) Axillary: 147.4/biphasic/4 Brachial: 62.3/biphasic/5 Radial: 23.4/biphasic/2 Ulnar: 39.7/biphasic/2 Prior fistula is noted at the left wrist connecting the radial artery to the cephalic vein with thrombus noted at the cephalic vein anastomosis. Newer 2nd fistula is located in the left antecubital fossa with no arteriovenous connection visualized. Thrombus is noted in the brachial artery at the level of the antecubital fossa there is still patent flow. IMPRESSION: No evidence of deep venous thrombosis of the Bilateral upper extremity deep vein system. Arterial and venous sizes are given above. <Electronically signed by Dewayne Oneill > 03/11/20 [id number]
== END ==
LOC: M RAD 12:33
PROVIDERS: ATTEND Physician Assistant
DX: Z01.818 Encounter for other preprocedural examination (principal); N18.6 End stage renal disease; Z99.2 Dependence on renal dialysis

== ENCOUNTER → 2020-03-24 | Outpatient (CLI) | payer OTHER | LOC: M LAB 15:21 | PROVIDERS: ATTEND Transplant Surgery | DX: Z01.818 Encounter for other preprocedural examination (principal) ==

== ENCOUNTER → 2020-03-24 | Outpatient (CLI) | payer OTHER ==
[2020-03-24 18:18] LABS: BASO # 0.1 10^3/uL (0.0-0.2); BASO % 0.9 % (0.0-1.0); EOS # 0.7 10^3/uL (0.0-0.5); EOS % 8.4 % (0.0-3.0); HEMATOCRIT 30.8 % (42.0-52.0); HEMOGLOBIN 9.5 g/dl (13.5-17.5); LYMPH % 13.1 % (24.0-44.0); MEAN CORPUSCULAR HEMOGLOBIN 31.4 pg (27.0-33.0); MEAN CORPUSCULAR HGB CONC 30.8 g/dl (32.0-36.5); MEAN CORPUSCULAR VOLUME 101.7 fl (80.0-96.0); MONO # 0.8 10^3/uL (0.0-0.8); MONO % 10.2 % (0.0-5.0); NEUTROPHILS # 5.2 10^3/uL (1.5-8.5); NEUTROPHILS % 67.1 % (36.0-66.0); PLATELET COUNT, AUTOMATED 302 10^3/uL (150-450); RED BLOOD COUNT 3.03 10^6/uL (4.30-6.10); WHITE BLOOD COUNT 7.8 10^3/uL (4.0-10.0)
[2020-03-24 18:51] LABS: ALBUMIN 2.5 GM/DL (3.2-5.2); BILIRUBIN,TOTAL 0.2 MG/DL (0.2-1.0); CALCIUM LEVEL 8.7 MG/DL (8.8-10.2); CREATININE FOR GFR 7.31 MG/DL (0.70-1.30); TOTAL PROTEIN 5.1 GM/DL (6.4-8.2)
== END ==
LOC: M LAB 17:22
PROVIDERS: ATTEND Internal Medicine Hematology & Oncology
DX: C83.11 Mantle cell lymphoma, lymph nodes of head, face, and neck (principal)

== ENCOUNTER → 2020-05-15 | Outpatient (CLI) | payer OTHER, MEDICARE | LOC: M LABSMTC 10:35 | PROVIDERS: ATTEND Anesthesiology | DX: Z01.812 Encounter for preprocedural laboratory examination (principal); Z20.822 Contact with and (suspected) exposure to COVID-19 ==

== ENCOUNTER 2020-05-20 08:09 | Day surgery (SDC) | payer OTHER, MEDICARE ==
[~2020-05-20] VITALS: Ht 167.6 cm; Wt 68.9 kg
[~2020-05-20 08:09] MED LIST changes: +CARV6.25; +LISI20TA33; +LR 1,000 ML IV ONE; +MIDAZOLAM INJ 2MG/2ML VIAL (J2250 PER 1MG) IV PRN; +ROSU5TAB5; +SERT-141 PO; +SYNT50TA; +ceFAZolin SOD 2 GM in IV 1 EA IV ONE; +fentaNYL 100 MCG/2 ML INJECTION (J3010) IV PRN
[2020-05-20] MEDS ORDERED: NS 1,000 ML IV SCH (09:25)
[2020-05-20] MEDS ORDERED: CARVedilol 6.25 MG TAB PO ONE (09:40)
[2020-05-20] MEDS ORDERED: EPINEPHrine INJ 1 MG/ML 1ML AMP XX ONE (10:05)
[2020-05-20] MEDS ORDERED: BUPIVACAINE HCL 0.5% 30 ML VIAL XX ONE (10:05)
[2020-05-20 10:30] VITALS: BP 125/70
--- NOTE | 2020-05-20 21:04 | ECGEPIP ---
[facility] Test Date: 2020-05-20 Pat Name: BARBARA KRISHNA Department: Room: - Gender: Male Functional Skills Tutor: abby : 1955 Requested By: Vishal Naqvi Order Number: [id number] Reading MD: Jignesh Leo Measurements Intervals [place] Rate: 75 P: 44 NE: 160 QRS: 61 QRSD: 94 T: 56 QT: 362 QTc: 404 Interpretive Statements Normal sinus rhythm, Normal ECG. No significant change compared with 02/22/2018. Electronically Signed on 05-20-2020 21:04:29 EDT by Jignesh Leo
== END 2020-05-20 11:15 | disposition home or self-care (01) ==
LOC: M SDC 08:09
PROVIDERS: ATTEND Surgery Vascular Surgery
DX: N17.9 Acute kidney failure, unspecified (principal); Z53.9 Procedure and treatment not carried out, unspecified reason

== ENCOUNTER → 2020-07-31 | Outpatient (CLI) | payer MEDICARE, OTHER ==
[~2020-07-31] MED LIST changes: +CALC1CAP PO; +CARV6.25 PO; +FEXO180T58 PO; -LR 1,000 ML IV ONE; -MIDAZOLAM INJ 2MG/2ML VIAL (J2250 PER 1MG) IV PRN; +OXYC1TAB23 PO; +RENV2TAB PO; -ceFAZolin SOD 2 GM in IV 1 EA IV ONE; -fentaNYL 100 MCG/2 ML INJECTION (J3010) IV PRN
== END ==
LOC: M LABSMTC 09:50
PROVIDERS: ATTEND Anesthesiology
DX: Z01.818 Encounter for other preprocedural examination (principal); Z11.52 Encounter for screening for COVID-19

== ENCOUNTER 2020-08-05 10:43 | Day surgery (SDC) | payer MEDICARE, OTHER ==
[~2020-08-05] VITALS: Ht 167.6 cm; Wt 71.1 kg
[~2020-08-05 10:43] MED LIST changes: +LR 1,000 ML IV ONE; -OXYC1TAB23 PO
[2020-08-05 11:59] LABS: POTASSIUM SERUM 4.1 MEQ/L (3.5-5.1)
[2020-08-05] MEDS ORDERED: LIDOCAINE 2% 100MG/5ML SDV (FOR ANES.) As Ordered ONE (12:58)
[2020-08-05] MEDS ORDERED: propofoL 200 MG/20 ML VIAL As Ordered ONE (12:58)
[2020-08-05] MEDS: MIDAZOLAM INJ 2MG/2ML VIAL (J2250 PER 1MG) IV PRN (13:20)
[2020-08-05] MEDS: fentaNYL 100 MCG/2 ML INJECTION (J3010) IV PRN (13:20)
[2020-08-05] MEDS: ROPIvacaine 0.5% 30ML INJECTION (J2795 PER 1MG) XX ONE (13:20)
[2020-08-05] MEDS: LIDOCAINE 1% MDV 20ML VIAL XX ONE (13:20)
[2020-08-05] MEDS: ceFAZolin SOD 2 GM in IV 1 EA IV ONE (13:30)
[2020-08-05] MEDS ORDERED: PHENYLephrine 500MCG 5ML (100MCG/ML) SYRINGE As Ordered ONE (13:54)
[2020-08-05] MEDS: LIDOCAINE 1% SDV 30ML VIAL As Ordered ONE (13:56)
[2020-08-05] MEDS: HEPARIN SOD (PORCINE) 5000UNITS/ML 1ML VIAL/SYRINGE As Ordered ONE (13:59)
[2020-08-05] MEDS ORDERED: MIDAZOLAM INJ 2MG/2ML VIAL (J2250 PER 1MG) As Ordered ONE (14:06)
[2020-08-05] MEDS ORDERED: PHENYLEPHRINE 10MG/ML 1ML VIAL (J2370 PER 1) As Ordered ONE (14:09)
[2020-08-05] MEDS: BUPIVACAINE/EPIN 0.25% 30 ML VIAL As Ordered ONE (15:02)
--- NOTE | 2020-08-05 15:33 | ROOPDOC ---
[facility] Report Of Operation Report of Operation DATE OF PROCEDURE: 08/05/20 PREPROCEDURE DIAGNOSES: End-stage renal disease requiring AV access for dialysis POSTPROCEDURE DIAGNOSES: Same PROCEDURE: Left brachiocephalic AV fistula SURGEON: Rehana Ngo MD ANESTHESIA: Monitored anesthesia care, left scalene nerve block, local anesthesia INDICATION FOR PROCEDURE: This is a very pleasant 65-year-old patient with end- stage renal disease in need of AV access for dialysis. He has had multiple failed fistulas in the past in the bilateral upper extremities. We examined his arm with ultrasound in the clinic and reviewed his vein mapping. I think the patient has an option for more proximal anastomosis on brachiocephalic AV fistu la. The cephalic vein is occluded at the antecubital crease in the area of previous fistula creation, but it is patent just proximal to this. Risks benefits and alternatives to a more proximal left brachiocephalic AV fistula was explained to the patient needs agreeable to proceed. Informed consent was obtained. REPORT OF OPERATION: The patient was brought to the operating room in stable condition. Prior to this, he had a left scalene nerve block placed by our anesthesia colleagues in preop holding. Anesthesia and antibiotics were administered without complication. His left upper extremity was prepped and draped in a sterile fashion. A timeout was performed. Local anesthesia was administered to the skin and subcutaneous tissue 1 fingerbreadth proximal to the antecubital crease. Ultrasound was used to map the cephalic vein and the brachial artery and these were marked on the skin. Branches of the cephalic vein were also marked, as well as where the vein occluded at the antecubital crease. An incision was made and carried down to the subcutaneous tissues with Bovie cautery. The cephalic vein was identified and skeletonized proximally and distally branches were suture ligated and divided. The vein was transected distally just proximal to the area of occlusion and spatulated. We were able to easily passed sequential dilators through the fistula, including a 3 mm, 3.5 mm, 4 mm, 4.5 mm, and a 5 mm dilator. We then flushed the vein with heparinized saline. Following this, we dissected out the brachial artery. This had a lot of fibrous tissue around it encompassing the brachial veins. We were eventually able to skeletonized the vessel proximally and distally in Vesseloops were placed. The Vesseloops were secured and a 5 mm arteriotomy was made. We found dense intimal hyperplasia within the vessel. This was endarterectomized locally. We passed a Fogerty balloon distal to this to make sure we had a patent lumen with good outflow to the hand. No thrombus was noted upon removal of the balloon. Good backflow was noted after the balloon was passed. We irrigated with heparinized saline. We anastomosis the vein and an end-to-side fashion with 6-0 Prolene suture. Before the final sutures in place we flushed inflow and outflow arteries and irrigated with heparinized saline. We then completed the anastomosis and restored flow to the vein and the inflow artery, and then lastly to the hand. We had good Doppler flow through the fistula and through the brachial artery distal to the fistula, and we had a biphasic signal at the palmar arch. The hand was warm and well-perfused and there is a palpable radial pulse. It was saline and approximated deep tissues with 2-0 Vicryl suture. We approximated the deep dermal layer with interrupted 4-0 Vicryl suture. The skin was closed with a running subcuticular Monocryl suture. The skin was clean and dry, and Mastisol and Steri-Strips replace the length of the incision. A 4 x 4 and Tegaderm were also placed as a final dressing. A sling was placed to protect the arm until the nerve block resolves and his motor and sensory function returned to his baseline. He was taken to recovery in stable condition. The patient tolerated the procedure and the sedation well. ESTIMATED BLOOD LOSS: Approximately 25 mL. COMPLICATIONS: None. PLAN: Ok to resume preprocedure diet and medications. Follow up in 1 week to check incision and fistula. Ok to remove Tegaderm and gauze after 48 hours, [place] Steri-Strips intact for 7 days to help incision to heal. Continue to use squeeze ball last hand to help improve circulation and help mature fistula. No lifting greater than 5 pounds no strenuous exercise left arm for one week. Okay to remove sling left upper extremity once motor and sensory function returned to normal. We appreciate the opportunity to participate in the care of this patient. REHANA NGO MD Aug 05, 2020 15:33
[2020-08-05] MEDS ORDERED: OXYC1TAB23 PO (15:36)
[2020-08-05 16:00] VITALS: BP 110/66
== END 2020-08-05 16:54 | disposition home or self-care (01) ==
LOC: M SDC 10:43
PROVIDERS: ATTEND Surgery Vascular Surgery
DX: N18.6 End stage renal disease (principal); I12.0 Hypertensive chronic kidney disease with stage 5 chronic kidney disease or end stage renal disease; E03.9 Hypothyroidism, unspecified; E78.00 Pure hypercholesterolemia, unspecified; F41.9 Anxiety disorder, unspecified; J45.909 Unspecified asthma, uncomplicated; K21.9 Gastro-esophageal reflux disease without esophagitis; Z79.890 Hormone replacement therapy; Z79.899 Other long term (current) drug therapy; Z87.891 Personal history of nicotine dependence; Z92.21 Personal history of antineoplastic chemotherapy; Z92.3 Personal history of irradiation; Z99.2 Dependence on renal dialysis

== ENCOUNTER → 2020-09-18 | Outpatient (CLI) | payer OTHER, MEDICARE ==
[~2020-09-18] MED LIST changes: -LR 1,000 ML IV ONE; +OXYC1TAB23 PO
[2020-09-18 13:17] LABS: BASO # 0.1 10^3/uL (0.0-0.2); BASO % 0.9 % (0.0-1.0); EOS # 0.7 10^3/uL (0.0-0.5); EOS % 10.9 % (0.0-3.0); HEMATOCRIT 37.7 % (42.0-52.0); HEMOGLOBIN 11.7 g/dl (13.5-17.5); LYMPH # 1.1 10^3/uL (1.5-5.0); LYMPH % 17.3 % (24.0-44.0); MEAN CORPUSCULAR HEMOGLOBIN 33.5 pg (27.0-33.0); MONO # 0.8 10^3/uL (0.0-0.8); MONO % 12.7 % (2.0-8.0); NEUTROPHILS # 3.8 10^3/uL (1.5-8.5); NEUTROPHILS % 57.9 % (36.0-66.0); PLATELET COUNT, AUTOMATED 240 10^3/uL (150-450); RED BLOOD COUNT 3.49 10^6/uL (4.30-6.10); WHITE BLOOD COUNT 6.6 10^3/uL (4.0-10.0)
[2020-09-18 14:17] LABS: ALBUMIN 3.7 GM/DL (3.2-5.2); BILIRUBIN,TOTAL 0.3 MG/DL (0.2-1.0); CALCIUM LEVEL 9.4 MG/DL (8.8-10.2); CREATININE FOR GFR 9.14 MG/DL (0.70-1.30); GLOMERULAR FILTRATION RATE 6.2 (>49); POTASSIUM SERUM 4.7 MEQ/L (3.5-5.1); TOTAL PROTEIN 6.4 GM/DL (6.4-8.2)
== END ==
LOC: M LAB 12:22
PROVIDERS: ATTEND Internal Medicine Hematology & Oncology
DX: N18.5 Chronic kidney disease, stage 5 (principal)

== ENCOUNTER → 2020-09-18 | Outpatient (CLI) | payer OTHER, MEDICARE ==
[2020-09-18 13:17] LABS: BASO # 0.1 10^3/uL (0.0-0.2); EOS # 0.6 10^3/uL (0.0-0.5); EOS % 9.2 % (0.0-3.0); HEMATOCRIT 37.3 % (42.0-52.0); HEMOGLOBIN 11.6 g/dl (13.5-17.5); LYMPH # 1.1 10^3/uL (1.5-5.0); LYMPH % 16.6 % (24.0-44.0); MEAN CORPUSCULAR HEMOGLOBIN 33.6 pg (27.0-33.0); MEAN CORPUSCULAR HGB CONC 31.1 g/dl (32.0-36.5); MEAN CORPUSCULAR VOLUME 108.1 fl (80.0-96.0); MONO # 0.9 10^3/uL (0.0-0.8); MONO % 13.6 % (2.0-8.0); NEUTROPHILS % 59.3 % (36.0-66.0); PLATELET COUNT, AUTOMATED 240 10^3/uL (150-450); RED BLOOD COUNT 3.45 10^6/uL (4.30-6.10); WHITE BLOOD COUNT 6.8 10^3/uL (4.0-10.0)
[2020-09-18 13:45] LABS: PERCENT SATURATION 18.7 % (19.7-50.0)
== END ==
LOC: M LAB 12:18
PROVIDERS: ATTEND Physician Assistant
DX: K62.5 Hemorrhage of anus and rectum (principal)

== ENCOUNTER 2020-10-29 14:58 | Emergency (ER) | payer OTHER, MEDICARE ==
[~2020-10-29] VITALS: Ht 165.1 cm; Wt 70.8 kg
[~2020-10-29 14:58] MED LIST changes: -LISI2.5T2 PO; +LISI2.5T9 PO
[2020-10-29 14:59] VITALS: BP 102/53
== END 2020-10-29 17:16 | disposition left against medical advice (07) ==
LOC: M ED 14:58
DX: Z53.21 Procedure and treatment not carried out due to patient leaving prior to being seen by health care provider (principal)

== ENCOUNTER → 2021-01-06 | Outpatient (CLI) | payer MEDICARE, OTHER ==
[~2021-01-06] MED LIST changes: +CVS1CHW58 PO; +VELP5CHW PO
== END ==
LOC: M LABSMTC 09:20
PROVIDERS: ATTEND Anesthesiology
DX: Z01.818 Encounter for other preprocedural examination (principal); Z11.52 Encounter for screening for COVID-19

== ENCOUNTER 2021-01-11 06:29 | Day surgery (SDC) | payer MEDICARE, OTHER ==
[~2021-01-11] VITALS: Ht 167.6 cm; Wt 70.9 kg
[~2021-01-11 06:29] MED LIST changes: +D5W/0.2% SODIUM CHLORIDE 1,000 ML IV ONE; +ceFAZolin SOD 2 GM in IV 1 EA IV ONE
--- OUTSIDE RECORDS SUMMARY | 2021-01-11 06:33 | CCD | Summary of Care ---
Author Author [facility] Organization [facility] Address Unknown Phone Unavailable Care Team Providers Care Medical Education Manager Name Role Phone YuriBroderickCharlyYue barnes PCP Reason for Visit * Reason Comments Post-op follow-up Encounter Details Care Team Description Date Type Department Erich Harris MD [address] [place] [address] [address] [place] [address] Lymph node enlargement (Primary Dx) 11/01/2020 Office Visit [facility] at [address], [address] [id number] Allergies No Known Active Allergiesdocumented as of this encounter (statuses as of 11/05/2020) Medications End Date Status Medication Sig Dispensed Refills Start Date Active nebivolol (BYSTOLIC) 2.5 Take 2.5 mg 0 MG tablet by mouth daily Active torsemide (DEMADEX) 10 MG Take 10 mg by 0 tablet mouth daily Active sertraline (ZOLOFT) 100 Take 100 mg 0 MG tablet by mouth every morning Active aspirin 81 MG EC tablet Take 81 mg by 0 mouth every morning Active budesonide-formoterol Inhale 2 0 (SYMBICORT) 160-4.5 puffs into MCG/ACT inhaler the lungs as needed Active fexofenadine (DARIUS) Take 180 mg 0 180 MG tablet by mouth as needed Active CRESTOR 5 MG tablet Take 5 mg by 0 mouth every 8 morning Active vitamin D every 7 0 (ERGOCALCIFEROL) 27592 (seven) days 8 units capsule Active levothyroxine (SYNTHROID, Take 50 mcg 0 04/0 LEVOTHROID) 50 MCG tablet by mouth 8 every morning Active ferrous sulfate 325 (65 Take 325 mg 0 FE) MG tablet by mouth daily with breakfast Active calcium carbonate (TUMS Chew 1 tablet 0 EX) 750 MG chewable by Mouth as tablet needed Active sodium bicarbonate 325 MG Take 1 tablet 3 05 tablet by mouth Two 8 Times Daily Active prochlorperazine Take 1 tablet 30 tablet 1 01 (COMPAZINE) 10 MG by mouth 8 tabletIndications: every 6 (six) Nasopharyngeal mass hours as needed (Nausea/Vomit ing) Additional Information Patient not taking. Reported on 04/02/2020 Active ondansetron (ZOFRAN) 8 MG Take 1 tablet 20 tablet 1 tabletIndications: by mouth 8 Nasopharyngeal mass every 8 (eight) hours as needed for Nausea or Vomiting Additional Information Patient not taking. Reported on 04/02/2020 Active sennosides-docusate Take 1-4 100 tablet 5 sodium (SENOKOT-S) 8.6-50 tablets by 8 MG tablet mouth daily as needed for Constipation Active Calcium Acetate, Phos Take 1 0 08/11/19 1 Binder, 667 MG CAPS capsule by 8 mouth Three times daily Active amlodipine (NORVASC) 10 Take 10 mg by 1 MG tablet mouth daily 8 Active Sulfamethoxazole-Trimetho TAKE 1 TABLET 0 08/04 prim 800-160 MG Oral BY MOUTH ON 0 Tablet (BACTRIM DS) DAYS Sunday Active Carvedilol 6.25 MG Oral Take 6.25 mg 0 Tablet (COREG) by mouth Two 0 Times Daily Active Lisinopril 10 MG Oral Take 10 mg by 0 03/26/19 2 Tablet (ZESTRIL) mouth every 1 morning Active Sevelamer Carbonate 800 Take 2 0 MG Oral Tablet (Renvela) tablets by 1 mouth Three times daily with meals Active Velphoro 500 MG Oral Chew 500 mg 0 Tablet Chewable by Mouth (Sucroferric Three times Oxyhydroxide) daily WITH MEALS Active Sennosides 8.6 MG Oral Take 1 tablet 0 Tablet by mouth as needed Active amLODIPine Besylate 5 MG Take 5 mg by 0 07/26 Oral Tablet (NORVASC) mouth every 1 morning Active oxyCODONE-Acetaminophen TAKE ONE 0 5-325 MG Oral Tablet TABLET BY 1 (PERCOCET) MOUTH THREE TIMES A DAY NEEDED FOR PAIN MAXIMUM DAILY DOSE 3 Active Lisinopril 20 MG Oral Take 20 mg by 0 07/01/19 2 Tablet (ZESTRIL) mouth every 1 morning documented as of this encounter (statuses as of 11/05/2020) Active Problems Problem Noted Date Anemia associated with chemotherapy 09/18/2017 Anemia in chronic kidney disease, on chronic dialysis 08/06/2017 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, face, an d neck 07/02/2017 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 Lymph nodes enlarged 06/22/2017 CKD (chronic kidney disease), stage V 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 Hypertension Hyperlipidemia Depression Hypercholesteremia Asthma Allergic rhinitis documented as of this encounter (statuses as of 11/05/2020) Immunizations Name Administration Dates Next Due documented as of this encounter Social History Date Tobacco Use Types Packs/Day Years Used Quit: 1997 Former Smoker Cigarettes 1.5 25 Smokeless Tobacco: Never Used Comments Alcohol Use Standard Drinks/Week quit 25 years ago No 0 (1 standard drink = 0.6 o z pure alcohol) Sex Assigned at Date Recorded Not on file Date Recorded COVID-19 Exposure Response 10/19/2020 7:41 AM EDT In the last month, have you been in contact with No / Unsure someone who was confirmed or suspected to have Coronavirus / COVID-19? documented as of this encounter Last Filed Vital Signs Not on filedocumented in this encounter Progress Notes * Anita Muniz MD - 11/01/2020 2:00 PM EDT Subjective: Patient ID: Ino Erickson is a 65 y.o. male. Mr. Erickson is a 65yo male with a PMH of CKD on MWF hemodialysis [facility]. Mr. Erickson underwent a biopsy of a L inguinal lymph node on 10/19/20 to evaluate for malignancy, as it would impact his standing on the renal transplant list. Since that time, the patient reports that he noticed localized swelling near the incision site. There was bruising present as well, which at o ne time extended down the LLE towards the knee, though this has regressed. The s welling does not prevent him from ambulating, but does cause him significant maycol n while doing so. Does not report drainage from the surgical site. Pt does not r eport fever/chills, nausea/vomiting. No changes in bowel or bladder habits repor tylor. ROS: Pertinent positives noted in HPI Ino has a past medical history of Allergic rhinitis, Anemia in stage 5 chroni c kidney disease, not on chronic dialysis (08/06/2017), Anxiety, Asthma, Blood tra nsfusion without reported diagnosis, Cancer (2018), CKD (chronic kidney disease) , stage V, Depression, GERD (gastroesophageal reflux disease), Hypercholesteremi a, Hyperlipidemia, Hypertension, Hypothyroid, and Membranous nephropathy determi oliver by biopsy. 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 Ino has a past surgical history that includes Facial reconstruction surgery ( 1996); Hernia repair (2011); and pr biopsy nasopharynx,simple (N/A, 07/02/2017). His family history includes Allergies in his mother; Cancer in his mother. Ino reports that he quit smoking about 23 years ago. His smoking use included cigarettes. He has a 37.50 pack-year smoking history. He has never used smokele ss tobacco. He reports that he does not drink alcohol and does not use drugs. Ino has a current medication list which includes the following prescription(s) : amlodipine, amlodipine, aspirin, budesonide-formoterol, calcium acetate, calci um carbonate, carvedilol, cephalexin, crestor, ferrous sulfate, fexofenadine, le vothyroxine, lisinopril, lisinopril, nebivolol, ondansetron, oxycodone-acetamino phen, prochlorperazine, senna, sennosides-docusate sodium, sertraline, sevelamer carbonate, sodium bicarbonate, sulfamethoxazole-trimethoprim, torsemide, velpho ro, and vitamin d. Current Outpatient Medications on File Prior to Visit Medication Sig Dispense Refill amlodipine (NORVASC) 10 MG tablet Take 10 mg by mouth daily 1 amLODIPine Besylate 5 MG Oral Tablet (NORVASC) Take 5 mg by mouth every m orning aspirin 81 MG EC tablet Take 81 mg by mouth every morning budesonide-formoterol (SYMBICORT) 160-4.5 MCG/ACT inhaler Inhale 2 puffs into the lungs as needed Calcium Acetate, Phos Binder, 667 MG CAPS Take 1 capsule by mouth Three t imes daily (Patient not taking: Reported on 08/31/2020) calcium carbonate (TUMS EX) 750 MG chewable tablet Chew 1 tablet by Mouth as needed Carvedilol 6.25 MG Oral Tablet (COREG) Take 6.25 mg by mouth Two Times Da all CRESTOR 5 MG tablet Take 5 mg by mouth every morning ferrous sulfate 325 (65 FE) MG tablet Take 325 mg by mouth daily with carlos barr (Patient not taking: Reported on 07/01/2020) fexofenadine (DARIUS) 180 MG tablet Take 180 mg by mouth as needed levothyroxine (SYNTHROID, LEVOTHROID) 50 MCG tablet Take 50 mcg by mouth every morning Lisinopril 10 MG Oral Tablet (ZESTRIL) Take 10 mg by mouth every morning Lisinopril 20 MG Oral Tablet (ZESTRIL) Take 20 mg by mouth every morning nebivolol (BYSTOLIC) 2.5 MG tablet Take 2.5 mg by mouth daily (Patient no t taking: Reported on 07/01/2020) ondansetron (ZOFRAN) 8 MG tablet Take 1 tablet by mouth every 8 (eight) h ours as needed for Nausea or Vomiting (Patient not taking: Reported on ) 20 tablet 1 oxyCODONE-Acetaminophen 5-325 MG Oral Tablet (PERCOCET) TAKE ONE TABLET B Y MOUTH THREE TIMES A DAY NEEDED FOR PAIN MAXIMUM DAILY DOSE 3 prochlorperazine (COMPAZINE) 10 MG tablet Take 1 tablet by mouth every 6 (six) hours as needed (Nausea/Vomiting) (Patient not taking: Reported on 021) 30 tablet 1 Sennosides 8.6 MG Oral Tablet Take 1 tablet by mouth as needed sennosides-docusate sodium (SENOKOT-S) 8.6-50 MG tablet Take 1-4 tablets by mouth daily as needed for Constipation 100 tablet 5 sertraline (ZOLOFT) 100 MG tablet Take 100 mg by mouth every morning Sevelamer Carbonate 800 MG Oral Tablet (Renvela) Take 2 tablets by mouth Three times daily with meals sodium bicarbonate 325 MG tablet Take 1 tablet by mouth Two Times Daily ( Patient not taking: Reported on 07/01/2020) 3 Sulfamethoxazole-Trimethoprim 800-160 MG Oral Tablet (BACTRIM DS) TAKE 1 TABLET BY MOUTH ON DAYS Sunday (Patient not taking: Reported on 07/01/2020) torsemide (DEMADEX) 10 MG tablet Take 10 mg by mouth daily (Patient not taking: Reported on 07/01/2020) Velphoro 500 MG Oral Tablet Chewable (Sucroferric Oxyhydroxide) Chew 500 mg by Mouth Three times daily WITH MEALS vitamin D (ERGOCALCIFEROL) 05088 units capsule every 7 (seven) days (Pat ient not taking: Reported on 07/01/2020) No current facility-administered medications on file prior to visit. Ino has No Known Allergies. Review of Systems Constitutional: Negative for appetite change, chills and fatigue. HENT: Negative for rhinorrhea and sneezing. Eyes: Negative for discharge and itching. Respiratory: Negative for shortness of breath and wheezing. Cardiovascular: Negative for chest pain. Gastrointestinal: Negative for constipation and diarrhea. Neurological: Negative for dizziness and weakness. Objective: Physical Exam Constitutional: Appearance: He is normal weight. He is not toxic-appearing. HENT: Head: Normocephalic and atraumatic. Cardiovascular: Rate and Rhythm: Normal rate and regular rhythm. Pulmonary: Effort: Pulmonary effort is normal. No respiratory distress. Abdominal: Palpations: There is mass. Comments: L inguinal region firm hematoma under previous surgical incision. S light tenderness to palpation. Musculoskeletal: General: No swelling or deformity. Neurological: General: No focal deficit present. Mental Status: He is alert. Assessment: Mr. Erickson is 65yo male presenting for wound check in the setting of suspecte d hematoma. Patient does not appear to have signs of systemic infection, and is otherwise stable. Plan: - Per Dr. Harris, will drain hematoma today - In consultation with pharmacy, will prescribe renally dosed keflex (250mg q24h ). Will dose in the evening after dialysis session. - Results of the lymph node biopsy came back nonreactive; patient can be placed back on the renal transplant list at this time. Patient seen and discussed with attending Dr. Steven Muniz MD General Surgery PGY-1 Pager [phone] * Anita Muniz MD - 11/01/2020 2:00 PM EDT Documentation 11/01/2020 SURGICAL SPECIALTIES Anita Muniz MD General Surgery Progress Notes Anita Muniz MD (Resident) General Surgery Brief Procedure Note Per Dr. Harris, hematoma to be drained. Site was cleansed with chlorhexidine. 10c c lidocaine administered. 1cm incision made with sterile technique. Dark sanguin ous fluid slowly expressed from incision. Totaled roughly 30cc collected in basi n, additional fluid absorbed on chux pads. Once complete, incision was cleaned a nd steri strips were placed, then gauze and tegederm. Patient tolerated procedur e well. Anita Muniz MD General Surgery PGY-1 Pager [phone] documented in this encounter Plan of Treatment Care Team Description Date Type Specialty Siddhartha Ingram DO [address] [place] [address] 12/30/2020 Telemedicine Hematology and Onco Ladarius Parsons MD [address] [address] 09/08/2021 Office Visit Transplant Health Maintenance Due Date Last Done Comments Pneumococcal Vaccine: 65+ 1960 Years (1 of 4 - PCV13) Pneumococcal Vaccine: 1961 Pediatrics (0 to 5 Years) and At-Risk Patients (6 to 64 Years) (1 of 4 - PCV13) DTaP,Tdap,and Td Vaccines 1962 (1 - Tdap) MMR Vaccines (1 of 1 - 02/13/2015 Standard series) Varicella Vaccines (1 of 02/13/2015 01/16/2015 2 - 2-dose childhood series) Zoster Vaccines (2 of 3) 03/13/2015 01/16/2015 Influenza Vaccine 12/03/2020 Colon Cancer Screening 10 05/29/2026 05/29/2016, yrs 05/29/2016, 12/16/2012 Hepatitis A Vaccines Aged Out 08/29/2017, No longer eligible based on patient's age to 03/23/2017, complete this topic 02/05/2017 Hepatitis C Screening (B. Completed 09/06/2019, [id number]) 12/06/2016 COVID-19 Vaccine Completed 06/02/2020 Hepatitis B Vaccines Aged Out 08/16/2020, No longer eligible based on patient's age to 07/12/2020, complete this topic 06/14/2020, Additional history exists HIB Vaccines Aged Out No longer eligible based on patient's age to complete this topic IPV Vaccines Aged Out No longer eligible based on patient's age to complete this topic documented as of this encounter Implants Device Identifier Shelf Expiration Date Model / Serial / L ot Implanted Type Area Manufactur er 10/26/2021 [id number] / / [id number] Port- Power Pac-10fr Dl Lpronew Right: Chest BENÍTEZ S Intro - [id number] Wall MEDICAL Implanted: Qty: 1 on 08/03/2017 by Ryan Georges MD at [facility] documented as of this encounter Results Not on filedocumented in this encounter Visit Diagnoses Diagnosis Lymph node enlargement - Primary Enlargement of lymph nodes documented in this encounter
--- OUTSIDE RECORDS SUMMARY | 2021-01-11 06:33 | CCD | Continuity of Care Document ---
Author Author Ino PINEDA MD Organization Unknown Address [address] [place] [address] Phone [phone] Care Team Providers Care Strategic Sourcing Manager Name Role Phone Yazmin Ndiaye M.D. AUTM [phone] Yue Morris D.O. AUTM AUTM Unavailable Conner Mcgee AUTM [phone] Problems Active Problems Provider Date Inguinal hernia without obstruction AND without gangrene Ramiro tSallworth M.D. Onset: 01/22/2013 Sprain of hip Jimmy Stallworth M.D. Onset: 01/22/2013 Social History Type Date Description Comments Sex Unknown ETOH Use Denies alcohol use Recreational Drug Use Denies Drug Use Tobacco Use Start: Unknown End: Unknown Patient is a former smoker 1 PPD FOR 15 YEARS QUIT 1996 Smoking Status Reviewed: 08/18/20 Patient is a former smoker 1 PPD FOR 15 YEARS QUIT 1996 Allergies, Adverse Reactions, Alerts Description No Known Drug Allergies Medications Active Medications SIG Qnty Indications Ordering Provide r Date Milk Of Magnesia 7.75% Suspension take 60 milliliters by mouth about 1-2 days before colonoscopy prep 360ml K62.5 Jignesh Pineda MD 12/01/2020 Miralax 17GM/Scoop Powder use as directed see dr pineda colon preparation instructions 510gm K62.5 Ernesto Pineda MD 12/01/2020 Sertraline HCL 100mg Tablets daily Unknown Amlodipine Besylate 5mg Tablets 1 po qd 30tabs Unknown Crestor 5mg Tablets daily Unknown Calcium Acetate (Phos Binder) 667mg Capsules 2 Every Meal Unknown Levothyroxine Sodium 50mcg Tablets take 1 tab by mouth daily. Unknown Aspirin 81mg Tablets DR 1 by mouth every day Unknown Carvedilol 6.25mg Tablets 1 b id Unknown Lisinopril 20mg Tablets 1 tab po qd Unknown Nepro/Carbsteady Liquid Use 1 8 Ounce Can By Mouth Daily AT Lunch Time Unknown Sevelamer Carbonate 800mg Tablets three times a day Unknown Immunizations Description No Information Available Vital Signs Date Vital Result Comment 12/01/2020 11:07am BP Systolic 124 mmHg BP Diastolic 69 mmHg Height 66 inches 5'6" Weight 155.00 lb BMI (Body Mass Index) 25.0 kg/m2 Emmett Body Weight 142 lb Weight 70.308 kg BSA (Body Surface Area) 1.79 m2 09/02/2020 11:38am BP Systolic 90 mmHg BP Diastolic 50 mmHg Height 66 inches 5'6" Weight 157.38 lb BMI (Body Mass Index) 25.4 kg/m2 Emmett Body Weight 142 lb Weight 71.385 kg BSA (Body Surface Area) 1.81 m2 Results Test Acquired Date Facility Test Result H/L Range Note Laboratory test finding 08/05/2020 [facility] [address] [place] [address] [id number] [phone] Potassium Serum 4.1 mEq/L Normal 3.5-5.1 1 1 Comments: NO IV PUNCTURES IN LEFT ARM By: SANIR Time: 1054 Comments: NO IV PUNCTURES IN LEFT ARM By: DEYA Time: 1054 Procedures Date Code Description Status 12/01/2020 49032 Office/Outpatient New Low [facility] 30 -44 Minutes Completed 08/05/[address]12 [address] Fistula Artery-Vein Completed Medical Devices Description No Information Available Encounters Type Date Location Provider Dx Diagnosis Office Visit 12/01/2020 10:40a [facility] Gastroenterology Pra dalia Pineda MD K62.5 Hemorrhage of anus and rectu m Office Visit 09/02/2020 11:30a [facility] Rehana nguyen MD N18.6 End stage renal disease Z48.812 Encntr for surgical aftcr fo llowing surgery on the circ sys Office Visit 08/18/2020 10:00a [facility] MARIUM Rodriguez N18.6 End stage renal disease Z99.2 Dependence on renal dialysis Z48.812 Encntr for surgical aftcr fo llowing surgery on the circ sys Assessments Date Code Description Provider 12/01/2020 K62.5 Hemorrhage of anus and rectum Sean Pineda MD 09/02/2020 N18.6 End stage renal disease Rehana rizzo MD 09/02/2020 Z48.812 Encounter for surgic al aftercare following surgery on the circulatory system Rehana Ngo MD 08/18/2020 N18.6 End stage renal disease MARIUM Melo 08/18/2020 Z99.2 Dependence on renal dialysis MARIUM Gallardo 08/18/2020 Z48.812 Encounter for surgic al aftercare following surgery on the circulatory system MARIUM Cedeno 08/05/2020 N18.6 End stage renal disease Rehana rizzo MD Plan of Treatment Future Appointment(s):* 12/13/2020 11:15 am - Jimmy Stallworth M.D. at [facility] 12/01/2020 - Jignesh Pineda MD* K62.5 Hemorrhage of anus and rectum* New Medication:* Milk Of Magnesia 7.75 % * Miralax 17 GM/Scoop * New Orders:* Colonoscopy, Ordered: 12/01/20 Functional Status Description No Information Available Mental Status Description No Information Available Referrals Refer to Dr Reason for Referral Status Appt Date Jimmy Stallworth M.D. EVAL FOR PD CATHETER Scheduled 12/03 [facility] [address] [place], [place] [address] [phone] Jignesh Pineda M.D. [facility] Scheduled 12/01/2020 [facility], Gastroenterology [address], [address] [place] [address] [phone]
--- OUTSIDE RECORDS SUMMARY | 2021-01-11 06:33 | CCD | Continuity of Care Document ---
Author Author Ino LUGO AK Organization Unknown Address [address] [place] [address] [address] [place] [address] Phone [phone] Care Team Providers Care Sand Caster Apprentice Name Role Phone Yue Morris D.O. AUTM [phone] Jignesh Vann M.D. AUTM [phone] Jimmy Stallworth M.D. AUTM [phone] Problems Active Problems Provider Date Chronic kidney disease stage 4 Yue Morris D.O. On set: 02/16/2017 Hyperlipidemia Yue Morris D.O. Onset: 2016 Mild intermittent asthma Yue Morris D.O. Onset: 1 04/19/2016 Generalized anxiety disorder Yue Morris D.O. Onse t: 02/16/2017 Mantle cell lymphoma Yue Morris D.O. Onset: 07/10 Social History Type Date Description Comments Sex Unknown ETOH Use Denies alcohol use Tobacco Use Start: Unknown Patient has never smoked Recreational Drug Use Denies Drug Use Smoking Status Reviewed: 12/23/20 Patient has never smoked Exercise Type/Frequency Does not exercise Sun Exposure Uses sunscreen Seat Belt/Car Seat Always uses seat belt Allergies and adverse reactions Active Allergies Criticality Reaction | Severity Comments Date NKDA Unable to assess criticality 10/10/2016 Seasonal Unable to assess criticality 10/10/2016 Medications Active Medications SIG Qnty Indications Ordering Provide r Date Levothyroxine Sodium 50mcg Tablets Take 1 Tablet By Mouth Once Every Morning. 90tabs Yue Fields D.O. 08/18/2018 Proair HFA 108(90Base) mcg/Act Aer osol 2 puffs inhaled every 4 hours as needed 17gm Fidencio Bledsoe.OWoodrow 02/16/2017 Crestor 5mg Tablets 1 by mouth every night Unknown Sertraline HCL 100mg Tablets 1 by mouth every day 90tabs Martir SimmsO. Aspirin Ec Low Dose 81mg Tablets D R one by mouth every day Unknown Tylenol 325mg Tablets take 1-2 tabs daily as needed Unknown Tums 500mg Chewtabs to be taken by mouth as needed Unknown Fexofenadine HCL 180mg Tablets 1 by mouth every day Unknown Carvedilol 6.25mg Tablets 1 tablet by mouth twice a day Unknown Lisinopril 20mg Tablets 1 by mouth every day Unknown Florajen3 Capsules 1 by mouth every day Unknown Velphoro 500mg Chewtabs Unknown Sevelamer Carbonate 800mg Tablets Unknown Immunizations Description No Information Available Vital Signs Date Vital Result Comment 12/23/2020 2:08pm BP Systolic 126 mmHg BP Diastolic 64 mmHg Height 64 inches 5'4" Weight 159.25 lb BMI (Body Mass Index) 27.3 kg/m2 Heart Rate 84 /min Respiratory Rate 18 /min Body Temperature 98.1 F O2 % BldC Oximetry 97 % [place] Body Weight 130 lb 09/14/2020 1:51pm BP Systolic 130 mmHg BP Diastolic 78 mmHg Height 64 inches 5'4" Weight 157.38 lb BMI (Body Mass Index) 27.0 kg/m2 Heart Rate 68 /min Respiratory Rate 14 /min Body Temperature 98.1 F O2 % BldC Oximetry 98 % [place] Body Weight 130 lb Results Test Acquired Date Facility Test Result H/L Range Note CBC With Differential 09/18/2020 [facility] Outpatient Mariely garvey (Registration) [address] [place] [address] [phone] White Blood Count 6.6 10 Normal 4.0-10.0 Red Blood Count 3.49 10 Low 4.30-6.10 Hemoglobin 11.7 g/dL Low 13.5-17.5 Hematocrit 37.7 % Low 42.0-52.0 Mean Corpuscular Volume 108.0 fl High 80.0-96.0 Mean Corpuscular Hemoglobin 33.5 pg High 27.0-33.0 Mean Corpuscular HGB Conc 31.0 g/dL Low 32.0-36.5 Red Cell Distribution Width 15.3 % High 11.5-14.5 Platelet Count, Automated 240 10 Normal 150-450 Neutrophils % 57.9 % Normal 36.0-66.0 Lymph % 17.3 % Low 24.0-44.0 [place] % 12.7 % High 2.0-8.0 Eos % 10.9 % High 0.0-3.0 Baso % 0.9 % Normal 0.0-1.0 Immature Granulocyte % 0.3 % Normal 0-3.0 Nucleated Red Blood Cell % 0.0 % Normal 0-0 Neutrophils # 3.8 10 Normal 1.5-8.5 Lymph # 1.1 10 Low 1.5-5.0 [place] # 0.8 10 Normal 0.0-0.8 Eos # 0.7 10 High 0.0-0.5 Baso # 0.1 10 Normal 0.0-0.2 Comprehensive Metabolic Profil 09/18/2020 [facility] Testing (Registration) [address] [place] [address] [phone] Glucose, Fasting 78 mg/dL Normal 70-100 Blood Urea Nitrogen 57 mg/dL High 7-18 Creatinine For GFR 9.14 mg/dL Critical high 0.70-1.30 Glomerular Filtration Rate 6.2 Low >49 1 Sodium Level 142 mEq/L Normal 136-145 Potassium Serum 4.7 mEq/L Normal 3.5-5.1 Chloride Level 102 mEq/L Normal 98-107 Carbon Dioxide Level 32 mEq/L Normal 21-32 Anion Gap 8 mEq/L Normal 8-16 Calcium Level 9.4 mg/dL Normal 8.8-10.2 Ast/Sgot 14 U/L Normal 7-37 Alt/SGPT 24 U/L Normal 12-78 Alkaline Phosphatase 58 U/L Normal 45-117 Bilirubin,Total 0.3 mg/dL Normal 0.2-1.0 Total Protein 6.4 GM/DL Normal 6.4-8.2 Albumin 3.7 GM/DL Normal 3.2-5.2 Albumin/Globulin Ratio 1.4 Normal Laboratory test finding 09/18/2020 [facility] Outpatient T esting (Registration) [address] [place] [address] [phone] LDH Lactate Dehydrogenase 188 U/L Normal 87-241 CBC With Differential 09/18/2020 [facility] Outpatient Mariely ting (Registration) [address] [place] [address] [phone] White Blood Count 6.8 10 Normal 4.0-10.0 Red Blood Count 3.45 10 Low 4.30-6.10 Hemoglobin 11.6 g/dL Low 13.5-17.5 Hematocrit 37.3 % Low 42.0-52.0 Mean Corpuscular Volume 108.1 fl High 80.0-96.0 Mean Corpuscular Hemoglobin 33.6 pg High 27.0-33.0 Mean Corpuscular HGB Conc 31.1 g/dL Low 32.0-36.5 Red Cell Distribution Width 15.3 % High 11.5-14.5 Platelet Count, Automated 240 10 Normal 150-450 Neutrophils % 59.3 % Normal 36.0-66.0 Lymph % 16.6 % Low 24.0-44.0 [place] % 13.6 % High 2.0-8.0 Eos % 9.2 % High 0.0-3.0 Baso % 1.0 % Normal 0.0-1.0 Immature Granulocyte % 0.3 % Normal 0-3.0 Nucleated Red Blood Cell % 0.0 % Normal 0-0 Neutrophils # 4.0 10 Normal 1.5-8.5 Lymph # 1.1 10 Low 1.5-5.0 [place] # 0.9 10 High 0.0-0.8 Eos # 0.6 10 High 0.0-0.5 Baso # 0.1 10 Normal 0.0-0.2 Total Iron Binding Capacit 09/18/2020 [facility] Outpatien t Testing (Registration) [address] [place] [address] [phone] Iron (Fe) 59 g/dL Low 65-175 Total Iron Binding Capacity 315 g/dL Normal 250-450 Percent Saturation 18.7 % Low 19.7-50.0 Laboratory test finding 09/18/2020 [facility] Outpatient T esting (Registration) [address] [place] [address] [phone] Ferritin 395 NG/ML High 26-388 Erythropoietin 76.0 mIU/mL High 2.6-18.5 2 Laboratory test finding 08/05/2020 [facility] Outpatient T esting (Registration) [address] [place] [address] [phone] Potassium Serum 4.1 mEq/L Normal 3.5-5.1 3 Order 07/29/2020 In House Orders EKG see report 1 Units are mL/min/1.73 m2 Chronic Kidney Disease Staging per NKF: Stage I & II GFR >=60 Normal to Mildly Decreased Stage III GFR 30-59 Moderately Decreased Stage IV GFR 15-29 Severely Decreased Stage V GFR <15 Very Little GFR Left ESRD GFR <15 on MANAGER CAMP 2 [employer] DxI 8 00 Immunoassay System . Values obtained with different assay methods or kits cannot be used interchangeably. Results cannot be interpreted as absolute evidence of the presence or absence of malignant disease. Performed at: RN - [facility] [address] [id number] Fur Pointer: Janelle Bearden MD, Phone: [phone] Comments: NO IV PUNCTURES IN LEFT ARM By: SANIR Time: 1054 Comments: NO IV PUNCTURES IN LEFT ARM By: DEYA Time: 1054 Procedures Date Code Description Status 09/14/2020 39111 Office/Outpatient Established Mo d MDM 30-39 Min Completed 07/29/2020 88479 Office/Outpatient New Low MDM 30 -44 Minutes Completed 07/29/2020 33558 Electrocardiogram Complete Compl eted Medical Devices Description No Information Available Encounters Type Date Location Provider Dx Diagnosis Office Visit 12/23/2020 2:00p [facility] MARIUM Grossman Z00.00 Encntr for general adult med ical exam w/o abnormal findings N18.6 End stage renal disease E78.5 Hyperlipidemia, unspecified J45.20 Mild intermittent asthma, un complicated F41.1 Generalized anxiety disorder Office Visit 09/14/2020 2:00p [facility] MARIUM Grossman K62.5 Hemorrhage of anus and rectu m Office Visit 07/29/2020 3:40p [facility] MARIUM Grossman Z01.818 Encounter for other preproce dural examination N18.6 End stage renal disease Assessments Date Code Description Provider 12/23/2020 Z00.00 Encounter for genera l adult medical examination without abnormal findings MARIUM Grossman 12/23/2020 N18.6 End stage renal disease MARIUM Grossman 12/23/2020 E78.5 Hyperlipidemia, unspecified MARIUM Allen 12/23/2020 J45.20 Mild intermittent asthma, uncomp licated MARIUM Grossman 12/23/2020 F41.1 Generalized anxiety disorder MARIUM Dumont 09/14/2020 K62.5 Hemorrhage of anus and rectum MARIUM Smart 07/29/2020 Z01.818 Encounter for other preprocedura l examination MARIUM Grossman 07/29/2020 N18.6 End stage renal disease MARIUM Grossman Plan of Treatment Future Appointment(s):* 06/28/2021 10:30 am - Yue Morris D.O. at [facility] Functional Status Description No Information Available Mental Status Description No Information Available Referrals Refer to Reason for Referral Status Appt Date Jimmy Stallworth M.D. 65 year old dialysis depende nt male, known to your practice, with 1 month of BRBPR. Rectal exam was unremarkable, except that it was positive for occult blood. Please eval and treat. Closed 09/30/[address] [place] [address] [phone]
--- OUTSIDE RECORDS SUMMARY | 2021-01-11 06:33 | CCD | Continuity of Care Document ---
Author Author Cardiac PETIno Organization Unknown Address [address] [place] [address], [facility] [place] [address] Phone [phone] Care Team Providers Care Mold Inspector Name Role Phone Yue Morris DO AUTM Erich Harris MD AUTM [phone] LegDave hoffman MD AUTM [phone] Problems Description No Information Available Social History Type Date Description Comments Sex Unknown Allergies, Adverse Reactions, Alerts Description No Known Drug Allergies Medications Active Medications SIG Qnty Indications Ordering Provide r Date Bystolic 2.5mg Tablets 1 by mouth every day Unknown 08/24/2019 Sertraline HCL 100mg Tablets 1 by mouth every day Unknown 08/24/2019 Rosuvastatin Calcium 5mg Tablets 1 by mouth every night at bedtime Unknown Levothyroxine Sodium 50mcg Tablets 1 by mouth every day Unknown 08/24/2019 Amlodipine Besylate 5mg Tablets 1 by mouth every day Unknown 08/24/[address] 1 by mouth every day Unknown 08/24/2019 Fexofenadine HCL 180mg Tablets 1 by mouth every day Unknown 08/24/2019 Tums Chewy Bites 750mg Chewtabs 1 by mouth every day Unknown 08/24/2019 Immunizations Description No Information Available Vital Signs Description No Information Available Results Description No Information Available Procedures Date Code Description Status 11/16/2020 74004 Echocardiogram 2-D Doppler Color Completed 11/15/2020 10159 TM Interpretation & Report Only Completed 11/15/2020 36025 Myocardial Imaging (PET) Multipl e Studies Completed Medical Devices Description No Information Available Encounters Description No Information Available Assessments Date Code Description Provider 11/16/2020 Z01.818 Encounter for other preprocedura l examination ECHO 11/15/2020 Z01.818 Encounter for other preprocedura l examination Cardiac PET Plan of Treatment No Information Available Functional Status Description No Information Available Mental Status Description No Information Available Referrals Description No Information Available
--- OUTSIDE RECORDS SUMMARY | 2021-01-11 06:33 | CCD | Continuity of Care Document ---
Author Author Ino LUGO AL Organization Unknown Address [address] [place] [address] [address] [place] [address] Phone [phone] Care Team Providers Care Conservation Assistant Name Role Phone Yue Morris D.O. AUTM Jignesh Vann M.D. AUTM [phone] Jimmy Stallworth M.D. AUTM [phone] Problems Active Problems Provider Date Chronic kidney [...] F O2 % BldC Oximetry 97 % [place] Body Weight 130 lb 09/14/2020 1:51pm BP Systolic 130 mmHg BP Diastolic 78 mmHg Height 64 inches 5'4" Weight 157.38 lb BMI (Body Mass Index) 27.0 kg/m2 Heart Rate 68 /min Respiratory Rate 14 /min Body Temperature 98.1 F O2 % BldC Oximetry 98 % [place] Body Weight 130 lb Results Test Acquired Date Facility Test Result H/L Range Note CBC With Differential 09/18/2020 [facility] Outpatient Mariely garvey (Registration) [address] [place] [address] [phone] White Blood Count 6.6 10 Normal 4.0-10.0 [...] 36.0-66.0 Lymph % 17.3 % Low 24.0-44.0 [place] % 12.7 % High 2.0-8.0 Eos % 10.9 % High 0.0-3.0 Baso % 0.9 % Normal 0.0-1.0 Immature Granulocyte % 0.3 % Normal 0-3.0 Nucleated Red Blood Cell % 0.0 % Normal 0-0 Neutrophils # 3.8 10 Normal 1.5-8.5 Lymph # 1.1 10 Low 1.5-5.0 [place] # 0.8 10 Normal 0.0-0.8 Eos # 0.7 10 High 0.0-0.5 Baso # 0.1 10 Normal 0.0-0.2 Comprehensive Metabolic Profil 09/18/2020 [facility] (Registration) [address] [place] [address] [phone] Glucose, Fasting 78 mg/dL Normal 70-100 Blood [...] Ratio 1.4 Normal Laboratory test finding 09/18/2020 [facility] Outpatient T esting (Registration) [address] [place] [address] [phone] LDH Lactate Dehydrogenase 188 U/L Normal 87-241 CBC With Differential 09/18/2020 [facility] Outpatient Mariely ting (Registration) [address] [place] [address] [phone] White Blood Count 6.8 10 Normal 4.0-10.0 [...] 36.0-66.0 Lymph % 16.6 % Low 24.0-44.0 [place] % 13.6 % High 2.0-8.0 Eos % 9.2 % High 0.0-3.0 Baso % 1.0 % Normal 0.0-1.0 Immature Granulocyte % 0.3 % Normal 0-3.0 Nucleated Red Blood Cell % 0.0 % Normal 0-0 Neutrophils # 4.0 10 Normal 1.5-8.5 Lymph # 1.1 10 Low 1.5-5.0 [place] # 0.9 10 High 0.0-0.8 Eos # 0.6 10 High 0.0-0.5 Baso # 0.1 10 Normal 0.0-0.2 Total Iron Binding Capacit 09/18/2020 [facility] Outpatien t Testing (Registration) [address] [place] [address] [phone] Iron (Fe) 59 g/dL Low 65-175 Total Iron Binding Capacity 315 g/dL Normal 250-450 Percent Saturation 18.7 % Low 19.7-50.0 Laboratory test finding 09/18/2020 [facility] Outpatient T esting (Registration) [address] [place] [address] [phone] Ferritin 395 NG/ML High 26-388 Erythropoietin 76.0 mIU/mL High 2.6-18.5 2 Laboratory test finding 08/05/2020 [facility] Outpatient T esting (Registration) [address] [place] [address] [phone] Potassium Serum 4.1 mEq/L Normal 3.5-5.1 3 Order 07/29/2020 In House Orders EKG see report 1 Units are mL/min/1.73 m2 Chronic Kidney Disease Staging per NKF: Stage I & II GFR >=60 Normal to Mildly Decreased Stage III GFR 30-59 Moderately Decreased Stage IV GFR 15-29 Severely Decreased Stage V GFR <15 Very Little GFR Left ESRD GFR <15 on VESSEL BUILDER 2 [employer] DxI 8 00 Immunoassay System . Values obtained with different assay methods or kits cannot be used interchangeably. Results cannot be interpreted as absolute evidence of the presence or absence of malignant disease. Performed at: RN - [facility] [address] [id number] [employer] Bakery Worker: Janelle Bearden MD, Phone: [phone] Comments: NO IV PUNCTURES IN LEFT ARM By: SANIR Time: 1054 Comments: NO IV PUNCTURES IN LEFT ARM By: DEYA Time: 1054 Procedures Date Code Description Status 09/14/2020 31016 Office/Outpatient Established Mo d MDM 30-39 Min Completed 07/29/2020 97129 Office/Outpatient New Low MDM 30 -44 Minutes Completed 07/29/2020 84148 Electrocardiogram Complete Compl eted Medical Devices Description No Information Available Encounters Type Date Location Provider Dx Diagnosis Office Visit 12/23/2020 2:00p [facility] MARIUM Grossman Z00.00 Encntr for general adult med ical exam w/o abnormal findings N18.6 End stage renal disease E78.5 Hyperlipidemia, unspecified J45.20 Mild intermittent asthma, un complicated F41.1 Generalized anxiety disorder Office Visit 09/14/2020 2:00p [facility] MARIUM Grossman K62.5 Hemorrhage of anus and rectu m Office Visit 07/29/2020 3:40p [facility] MARIUM Grossman Z01.818 Encounter for other [...] 10:30 am - Yue Morris D.O. at [facility] Functional Status Description No Information Available Mental Status Description No Information Available Referrals Refer to Reason for Referral Status Appt Date Jimmy Stallworth M.D. 65 year old dialysis depende nt male, known to your practice, with 1 month of BRBPR. Rectal exam was unremarkable, except that it was positive for occult blood. Please eval and treat. Closed 09/30/[address] [place] [address] [phone]
--- OUTSIDE RECORDS SUMMARY | 2021-01-11 06:33 | CCD | Continuity of Care Document ---
Author Author Ino PINEDA MD Organization Unknown Address [address] [place] [address] Phone [phone] Care Team Providers Care Order Puller Name Role Phone Yazmin Ndiaye M.D. AUTM Yue Morris D.O. AUTM AUTM Unavailable Conner Mcgee AUTM [phone] Problems Active Problems Provider Date Inguinal hernia without obstruction AND without gangrene Ramiro Stallworth M.D. Onset: 01/22/2013 Sprain of hip Jimmy [...] 1 PPD FOR 15 YEARS QUIT 1996 Allergies and adverse reactions Description No Known Drug Allergies Medications Active [...] lb BMI (Body Mass Index) 25.0 kg/m2 [place] Body Weight 142 lb Weight 70.308 kg BSA (Body Surface Area) 1.79 m2 09/02/2020 11:38am BP Systolic 90 mmHg BP Diastolic 50 mmHg Height 66 inches 5'6" Weight 157.38 lb BMI (Body Mass Index) 25.4 kg/m2 [place] Body Weight 142 lb Weight 71.385 kg BSA (Body Surface Area) 1.81 m2 Results Test Acquired Date Facility Test Result H/L Range Note Laboratory test finding 08/05/2020 [facility] Main Lab [address] [place] [id number] [phone] Potassium Serum 4.1 mEq/L Normal 3.5-5.1 1 1 Comments: NO IV PUNCTURES IN LEFT ARM By: SANIR Time: 1054 Comments: NO IV PUNCTURES IN LEFT ARM By: SANAMALIA Time: 1054 Procedures Date Code Description Status 12/01/2020 59990 Office/Outpatient New Low [facility] 30 -44 Minutes Completed 08/05/[address] Fistula Artery-Vein Completed Medical Devices Description No Information Available Encounters Type Date Location Provider Dx Diagnosis Office Visit 12/01/2020 10:40a [facility] Jignesh Pineda MD R19.5 Other fecal abnormalities Office Visit 09/02/2020 11:30a [facility] Rehana nguyen MD N18.6 End stage renal disease Z48.812 Encntr for surgical aftcr fo llowing surgery on the circ sys Office Visit 08/18/2020 10:00a [facility] MARIUM Rodriguez N18.6 End stage renal disease Z99.2 Dependence on renal dialysis Z48.812 Encntr for surgical aftcr fo llowing surgery on the circ sys Assessments Date Code Description Provider 12/01/2020 R19.5 Other fecal abnormalities Jignesh Pineda MD 09/02/2020 N18.6 End stage renal [...] 11:15 am - Jimmy Stallworth M.D. at [facility] Practice 12/01/2020 - Jignesh Pineda MD* R19.5 Other fecal abnormalities * Functional Status Description No Information Available Mental Status Description No Information Available Referrals Refer to Reason for Referral Status Appt Date Jimmy Stallworth M.D. EVAL FOR PD CATHETER Scheduled 12/03 [facility] [address] [place], [place] [address] [phone] Jignesh Pineda M.D. BRBPR Scheduled 12/01/2020 [facility], Gastroenterology [address], [address] [place] [address] [phone]
--- OUTSIDE RECORDS SUMMARY | 2021-01-11 06:33 | CCD | Summary of Care ---
Author Author [facility] Organization [facility] Address Unknown Phone Unavailable Care Team Providers Care Business Technology Architect Name Role Phone Yuri-CharlyYue barnes PCP Reason for Visit * Auth/Cert Referred By Contact Referred To Contact Status Reason Specialty Diagnoses / Procedures Erich Harris MD [address] [phone] Email: [email or web address] Diagnoses lymphandenopathy Encounter Details Care Team Description Date Type Department Erich Harris MD [address] [id number] 10/19/[address] Encounter [address] [place] [address] Allergies No Known Active Allergiesdocumented as of this encounter (statuses as of 10/19/2020) Medications End Date Status Medication Sig Dispensed [...] Active vitamin D every 7 0 (ERGOCALCIFEROL) 49292 (seven) days 8 units capsule Active levothyroxine (SYNTHROID, Take 50 mcg 0 LEVOTHROID) 50 MCG tablet by mouth 8 every morning Active ferrous sulfate 325 (65 Take 325 mg 0 FE) MG tablet by mouth daily with breakfast Active calcium carbonate (TUMS Chew 1 tablet 0 EX) 750 MG chewable by Mouth as tablet needed Active sodium bicarbonate 325 MG Take 1 tablet 3 tablet by mouth Two 8 Times Daily [...] 2 Tablet (ZESTRIL) mouth every 1 morning 10/29/2020 Active Acetaminophen 325 MG Oral Take 2 30 tablet 0 Tablet tablets by 1 mouth every 6 (six) hours for 10 days 10/19/2020 Discontinued sodium chloride 0.9 % 100 mg 0 09/18/19 2 SOLN 100 mL with iron 1 sucrose 20 MG/ML SOLN documented as of this encounter (statuses as of 10/19/2020) Active Problems Problem Noted Date Anemia associated [...] as of this encounter (statuses as of 10/19/2020) Immunizations Name Administration Dates Next Due documented [...] of this encounter Last Filed Vital Signs Reading Time Taken Comments Vital Sign 126/67 10/19/2020 12:00 PM EDT Blood Pressure 100 10/19/2020 12:00 PM EDT Pulse 36.5 C (97.7 F) 10/19/2020 11:36 AM EDT Temperature 18 10/19/2020 12:00 PM EDT Respiratory Rate 93% 10/19/2020 12:00 PM EDT Oxygen Saturation - - Inhaled Oxygen Concentration 70.9 kg (156 lb 6.4 oz) 10/19/2020 8:25 AM EDT Weight - - Height 26.7 10/12/2020 9:50 AM EDT Body Mass Index documented in this encounter Discharge Instructions * Patient Instructions* Marlys Goel PA - 10/12/2020 9:39 AM EDT PRE-ANESTHESIA INSTRUCTIONS Tentative Date: 10/19/2020 Tentative Arrival Time: 730 am Take medications morning of surgery with a few sips of water/clear liquid SANIA ANIMAL 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 Medications Medication Sig Pre-Anesthesia Instructions for Medications amLODIPine Besylate 5 MG Oral Tablet (NORVASC) Take 5 mg by mouth every m orning Continue as prescribed - TAKE MORNING OF SURGERY aspirin 81 MG EC tablet Take 81 mg by mouth every morning per Surgeon budesonide-formoterol (SYMBICORT) 160-4.5 MCG/ACT inhaler Inhale 2 puffs into the lungs as needed Continue as prescribed - TAKE MORNING OF SURGERY calcium carbonate (TUMS EX) 750 MG chewable tablet Chew 1 tablet by Mouth as needed Continue as prescribed - NOT TO BE TAKEN DAY OF SURGERY Carvedilol 6.25 MG Oral Tablet (COREG) Take 6.25 mg by mouth Two Times Da all Continue as prescribed - TAKE MORNING OF SURGERY CRESTOR 5 MG tablet Take 5 mg by mouth every morning Continue as prescri bed - TAKE MORNING OF SURGERY fexofenadine (DARIUS) 180 MG tablet Take 180 mg by mouth as needed Cont inue as prescribed levothyroxine (SYNTHROID, LEVOTHROID) 50 MCG tablet Take 50 mcg by mouth every morning Continue as prescribed - TAKE MORNING OF SURGERY Lisinopril 20 MG Oral Tablet (ZESTRIL) Take 20 mg by mouth every morning Continue as prescribed - NOT TO BE TAKEN DAY OF SURGERY Sennosides 8.6 MG Oral Tablet Take 1 tablet by mouth as needed Continue as prescribed - NOT TO BE TAKEN DAY OF SURGERY sertraline (ZOLOFT) 100 MG tablet Take 100 mg by mouth every morning Con tinue as prescribed - TAKE MORNING OF SURGERY Sevelamer Carbonate 800 MG Oral Tablet (Renvela) Take 2 tablets by mouth Three times daily with meals Continue as prescribed - NOT TO BE TAKEN DAY OF JURADO RGERY Velphoro 500 MG Oral Tablet Chewable (Sucroferric Oxyhydroxide) Chew 500 mg by Mouth Three times daily WITH MEALS Continue as prescribed - NOT TO BE TAKE N DAY OF SURGERY ADULT AND CHILDREN 12 years old and older: These instructions apply to food and liquids by mouth and feeding tube. Stop solid food 8 hours before your scheduled arrival at hospital (This include s gum and candies) Stop all clear liquids 2 hours before your scheduled arrival at hospital. Examples of Approved Clear Liquids for Children: water or ice,clear juices (appl e, grape, cranberry), Yoel-Aid, plain Jello, plain popsicles, and balanced elect rolyte solution (Pedialyte). Examples of Approved Clear Liquids for Adults: Water or ice, apple juice, ginge r cheryl, non-red and non-purple Gatorade or Powerade. NOTHING ELSE, NO SUBSTITUTI ONS! Examples of solids include: pureed solids, milk, formula, gum, candy, lozenges, pulp juices, nectars, or any liquid you cannot see through. PATIENTS WITH DIABETES PLEASE NOTE: Please check your sugar level the morning of your procedure. If you are having a low blood sugar attack (sweating, fatigue, light-headedness) the morning of your surgery, please check your sugar level. You may take gluco se tablets and/or clear juices such as apple, grape, or cranberry. Do not take juices you cannot see through such as orange or tomato juice. Do not eat solid food. If you are taking Motrin, Advil, Ibuprofen, or other anti-inflammatories, call y our surgeon for specific instructions regarding stopping them prior to surgery. You may take Tylenol (acetaminophen) for pain. No alcohol, vitamins and supplements, illegal drugs or smoking 24 hours before s urgery. Call your surgeon if you are sick, have a cold or fever. Make arrangements to have a responsible adult drive you home after surgery. Wear comfortable clothes, no valuables, remove all jewelry and piercing, no make up or nail qatari. Do not use oil, lotion or powder on your skin before coming for your procedure. You will meet with your Anesthesiologist the day of your surgery. * If you have sleep apnea and use a machine or device please bring it with you t he day of surgery. If you have any questions or if patient becomes sick: Children's Operating Room, including MRI by 6 PM, please call [facility] V[facility] Center by 5 PM, you should call Cancer Center by 3 PM, you should call Outpatient Surgery Center ([address]) by 3 PM, you should call [phone] Adult Operating Room (5E) will only call you if your arrival time has honeycutt ed. 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 The patie nt underwent PET scan in May 2020 that demonstrated a left inguinal lymph node with moderate FDG avidity. The patient reports no symptoms, denying pain, palpa ble node, weight loss, night sweats, fever. He has been followed by Hem/Onc who believed the lymph node to be reactive. Patient on the A[facility] for kidney transplant but made inactive due to this finding. He is on HD M/W/F and reports no issues on dialysis. Previous studies include: PET 06/01/20 (see read below). 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 CKD (chronic kidney disease), stage V Depression pt denies history of depression GERD (gastroesophageal reflux disease) Hypercholesteremia Hyperlipidemia Hypertension Hypothyroid Membranous nephropathy determined by biopsy Past Surgical History: Past Surgical History: Procedure Laterality Date FACIAL RECONSTRUCTION SURGERY 1996 HERNIA REPAIR 2012 Inguinal MS BIOPSY NASOPHARYNX,SIMPLE N/A 07/02/2017 Procedure: NASOPHARYNGOSCOPY, BIOPSY, FROZEN SECTIONS TOWER, SINUS SCOPES & TRAY, LYMPHOMA PROTOCOL; Surgeon: Sukhwinder Piper MD; Location: OR [facility]; rvice: ENT; Laterality: N/A; Allergies: No Known Allergies Prior to Admission Medications: Medications Prior to Admission Medication Sig Dispense Refill Last Dose amLODIPine Besylate 5 MG Oral Tablet (NORVASC) Take 5 mg by mouth every m orning 10/18/2020 at Unknown time aspirin 81 MG EC tablet Take 81 mg by mouth every morning 10/18/2020 at Unknown time budesonide-formoterol (SYMBICORT) 160-4.5 MCG/ACT inhaler Inhale 2 puffs into the lungs as needed 10/18/2020 at Unknown time calcium carbonate (TUMS EX) 750 MG chewable tablet Chew 1 tablet by Mouth as needed Past Week at Unknown time Carvedilol 6.25 MG Oral Tablet (COREG) Take 6.25 mg by mouth Two Times Da all 10/18/2020 at Unknown time CRESTOR 5 MG tablet Take 5 mg by mouth every morning 10/18/2020 at Unkn own time fexofenadine (DARIUS) 180 MG tablet Take 180 mg by mouth as needed at Unknown time levothyroxine (SYNTHROID, LEVOTHROID) 50 MCG tablet Take 50 mcg by mouth every morning 10/18/2020 at Unknown time Lisinopril 20 MG Oral Tablet (ZESTRIL) Take 20 mg by mouth every morning 10/18/2020 at Unknown time Sennosides 8.6 MG Oral Tablet Take 1 tablet by mouth as needed 10/19/19 21 at Unknown time sertraline (ZOLOFT) 100 MG tablet Take 100 mg by mouth every morning at Unknown time Sevelamer Carbonate 800 MG Oral Tablet (Renvela) Take 2 tablets by mouth Three times daily with meals 10/18/2020 at Unknown time Velphoro 500 MG Oral Tablet Chewable (Sucroferric Oxyhydroxide) Chew 500 mg by Mouth Three times daily WITH MEALS 10/18/2020 at Unknown time amlodipine (NORVASC) 10 MG tablet Take 10 mg by mouth daily 1 Calcium Acetate, Phos Binder, 667 MG CAPS Take 1 capsule by mouth Three t imes daily (Patient not taking: Reported on 08/31/2020) ferrous sulfate 325 (65 FE) MG tablet Take 325 mg by mouth daily with carlos akfast (Patient not taking: Reported on 07/01/2020) Lisinopril 10 MG Oral Tablet (ZESTRIL) Take 10 mg by mouth every morning nebivolol (BYSTOLIC) [...] taking: Reported on 021) 30 tablet 1 sennosides-docusate sodium (SENOKOT-S) 8.6-50 MG tablet Take 1-4 tablets by mouth daily as needed for Constipation 100 tablet 5 sodium bicarbonate 325 MG tablet Take 1 tablet by mouth Two Times Daily ( Patient not taking: Reported on 07/01/2020) 3 Sulfamethoxazole-Trimethoprim 800-160 MG Oral Tablet (BACTRIM DS) TAKE 1 TABLET BY MOUTH ON DAYS Sunday (Patient not taking: Reported on 07/01/2020) torsemide (DEMADEX) 10 MG tablet Take 10 mg by mouth daily (Patient not taking: Reported on 07/01/2020) vitamin D (ERGOCALCIFEROL) 78877 units capsule every 7 (seven) days (Pat ient not taking: Reported on 07/01/2020) Family History: Family History Problem Relation Age of Onset Allergies Mother Cancer Mother Social History: Social History Socioeconomic History Marital status: Spouse name: None Number of children: None Years of education: None Highest education level: None Occupational History None Tobacco Use Smoking status: Former Smoker Packs/day: 1.50 Years: 25.00 Pack years: 37.50 Types: Cigarettes Quit date: 1997 Years since quittin.6 Smokeless tobacco: Never Used Substance and Sexual Activity Alcohol use: No Comment: quit 25 years ago Drug use: No Sexual activity: None Other Topics Concern None Social History Narrative None Social Determinants of Health Financial Resource Strain: Difficulty of Paying Living Expenses: Food Insecurity: Worried About Running Out of Food in the Last Year: Ran Out of Food in the Last Year: Transportation Needs: Lack of Transportation (Medical): Lack of Transportation (Non-Medical): Physical Activity: Days of Exercise per Week: Minutes of Exercise per Session: Stress: Feeling of Stress : Social Connections: Frequency of Communication with Friends and Family: Frequency of Social Gatherings with Friends and Family: Attends [employer] Services: Active Member of Clubs or Organizations: Attends Club or Organization Meetings: Marital Status: Intimate Partner Violence: Fear of Current or Ex-Partner: Emotionally Abused: Physically Abused: Sexually Abused: Review of Systems Constitutional: Negative for appetite change, chills and fatigue. HENT: Negative for sore throat. Respiratory: Negative for cough, choking and shortness of breath. Cardiovascular: Negative for chest pain. Gastrointestinal: Negative for diarrhea, nausea and vomiting. Genitourinary: Negative for dysuria. Musculoskeletal: Negative for back pain and myalgias. Skin: Negative for wound. Allergic/Immunologic: Negative for immunocompromised state. Neurological: Negative for headaches. Objective Last Vital Signs: Vitals: 10/19/20 0825 BP: 112/65 Pulse: 88 Resp: 16 Temp: 36.7 C (98.1 F) SpO2: 99% Physical Exam Vitals reviewed. Constitutional: General: He is not in acute distress. Appearance: Normal appearance. He is not ill-appearing. Eyes: Extraocular Movements: Extraocular movements intact. Cardiovascular: Rate and Rhythm: Normal rate and regular rhythm. Pulses: Normal pulses. Pulmonary: Effort: Pulmonary effort is normal. No respiratory distress. Abdominal: General: Abdomen is flat. Palpations: Abdomen is soft. Musculoskeletal: General: No swelling. Normal range of motion. Skin: General: Skin is warm and dry. Capillary Refill: Capillary refill takes less than 2 seconds. Neurological: General: No focal deficit present. Mental Status: He is alert. Psychiatric: Mood and Affect: Mood normal. Diagnostic Data Review/Ordered: All laboratory data reviewed. PET 06/01/20 IMPRESSION: 1. No evidence of disease recurrence within the head and neck. 2. Prominent left inguinal node with moderate FDG avidity, new compared to prior PET, may be reactive given its location. Attention on follow-up imaging and phy sical exam suggested. Assessment Active Problems:Principal Problem: Lymph nodes enlarged Mr. Erickson is a 65 year old male with PMH listed above. 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 Hx mantle cell lymphoma with PET scan showing co ncerning left inguinal lymph node. Proceed with biopsy to ensure no malignancy a s patient would receive IS when he gets a kidney transplant. Plan - Left inguinal lymph node biopsy - consent obtained - discharge after procedure MARIUM Rowell 8:51 AM Associated attestation - Erich Harris MD - 10/19/2020 9:52 AM EDT I saw and evaluated the patient. Discussed with the non-physician practitioner and agree with the non-physician practitioner findings and plan as documented in their note. documented in this encounter OR Notes * OR PreOp - Helena Herring RN - 10/19/2020 8:24 AM EDT Images from the original note were not included. documented in this encounter Miscellaneous Notes * Brief Op Note - Balaji Mooer MD - 10/19/2020 11:38 AM EDT Brief Procedure/Operative Note Date of operation/procedure: 10/19/2020 Surgical Lo Pre-Op Diagnosis: lymphandenopathy Post-Op Diagnosis: lymphandenopathy Procedure(s): BIOPSY LYMPH NODE left inguinal Surgeon(s): MD Anita Curiel MD Naveed A Rahman, MD Primary: Erich Harris MD Resident - Assisting: Anita Muniz MD; Balaji Moore MD Anesthesia Type: General Anesthesiologist: Nelson Stacy MD Letterer: Yvon Bains DO Procedure Start and End Times: For time of surgery refer to operative nursing te mplate. Est. Blood loss: Minimal Blood Administered: none Fluids Given: 900 ml crystalloid Grafts / Implants: * No implants in log * Specimens Removed: Order Name Source Comment Collection Info Order Time POTASSIUM 10/19/2020 8:14 AM SURGICAL PATHOLOGY EXAM ( ONLY) 10/19/2020 10:56 AM Specimens and Anatomical Sites left inguinal lymph node Reason for Procedure lymphadenopathy Comments: Left inguinal lymph node, sent for lymphoma protocol Complications: None Noted Balaji Moore, PGY-3 Department of Surgery Pager: [phone] * PAT Notes - Kisha Tamez RN - 10/08/2020 9:30 AM EDT PAT GREEN SHEET PAT VISIT DATE: 10/12/2020 @ 0945 DOS DATE: 10/19/2020 () PRE- PAT VISIT CALL COMPLETED: Yes, 10/08/2020 with JORJE 1. WEB APPLICATIONS DEVELOPER name and phone number? NA (no OV, only testings at Dr.David Leo's office [phone]) []NA (Does not see a Software Packager) a. Date of last visit? NA b. Clearance note? []Yes []No c. Note in Epic? []Yes[]No d. Note in ? []Yes[]No e. Note printed/scanned? []Yes[]No f. Purple sheet with [facility] waiting for records/future notes? []Yes[]No Additional notes for Software Packager Visit: 2. Date of last EKG (actual tracing), where can it be found? 08/31/2020 ([facility]) a. Calling for last EKG? []Yes[]No b. Received/Scanned? []Yes[]No 3. Date of last ECHO, where can it be found? 08/15/2019 ([facility]) a. Calling for last ECHO? []Yes[]No b. Received/Scanned? []Yes[]No 4. Date of last STRESS TEST, where can it be found? 08/25/2019 ([facility]) a. Calling for Last Stress Test? []Yes[]No b. Received/Scanned? []Yes[]No 5. PCP name and phone number? Yue Morris DO [phone] []NA ( Does not have PCP or not applicable at this time) 6. Date of last PCP visit? 09/14/2020 ([facility] printed, to for scanning) a. Clearance note? []Yes[]No b. F/U visit? [x]Yes[]No c. Note in Epic? []Yes[]NO d. Note in CE? []Yes[]No e. Note printed/scanned? [x]Yes[]No f. Purple sheet with [facility] waiting for records/future notes? []Yes[]No Additional notes for PCP visit: 7. CARE MANAGER name and phone number? NA []NA (Does not see a Pulmonolo gist a. Date of last Practicing Urologist note? b. Date of last PFT, where can it be found? NA c. Calling for last PFT? []Yes[]No d. Received/Scanned? []Yes[]No Additional notes for Pulmonology visit: 8. Date of last LABS done, where can they be found? 09/18/2020 ([facility]) a. Calling for last labs? []Yes[]No b. Received/Scanned? []Yes[]No Additional information for labs done: 11. Orders for PAT visit from Surgeon? NO (10/08/2020 @ 0930); Stress test and oncology labs orders in [facility] on 06/02/2020, policy reviewed with -Dialysis: Mondays, Wednesdays and Fridays documented in this encounter Plan of Treatment Care Team Description Date Type Specialty Siddhartha Ingram DO [address] [place] [address] 12/30/2020 Telemedicine Hematology and Onco Ladarius Parsons MD [address] Room [address] [place] [phone] 09/08/2021 Office Visit Transplant Date/Time Name Type Priority Associated Diag noses 10/19/2020 10:57 AM EDT Bx/Surg Tissue Culture 1 Microbiology Routine Order Schedule Name Type Priority Associated Diag noses Once for 1 Occurrences starting 10/20/19 21 until 10/19/2020 Potassium Lab Routine Once for 1 Occurrences starting 10/20/19 until 10/19/2020 Surgical Pathology Exam Pathology and Routine ( Only) Cytology Continuous for only 4 days for [address] arting 10/19/2020 until 10/23/2020 Oximetry Continuous Respiratory Routine Care Continuous for only 4 [address] arting 10/19/2020 until 10/23/2020 Capnography (End Tidal Respiratory Routine Co2) per [facility] Health Maintenance Due Date Last Done Comments [...] 02/05/2017 Hepatitis C Screening (B. Completed 09/06/2019, [id number]) 12/06/2016 COVID-19 Vaccine Completed 06/02/2020 Hepatitis B [...] Area Manufactur er 10/26/2021 [id number] / / [id number] Port- Power [id number] Dl Lpronew Right: Chest JACKELIN S Intro - [id number] Wall MEDICAL Implanted: Qty: 1 on 08/03/2017 by Ryan Georges MD at [facility] documented as of this encounter Procedures Comments Procedure Name Priority Date/Time Associated Diag nosis BX/SURG TISSUE CULTURE 1 Routine 10/19/2020 10:57 AM EDT POCT ISTAT VENOUS CG8 Routine 10/19/2020 8:44 AM EDT POCT ID NOW COVID-19 Routine 10/19/2020 8:06 AM EDT documented in this encounter Results * POCT i-STAT venous CG8 (10/19/2020 8:44 AM EDT) i-STAT Venous 7.44 (H) 7.36 - 7.41 [facility] pH [facility] POC i-STAT Venous 45 40 - 45 mmHg [facility] PCO2 [facility] POC i-STAT Venous 41 mmHg [facility] PO2 [facility] POC i-STAT Venous 5 mmol/L [facility] Base Excess [facility] POC i-STAT Venous 78 60 - 85 % [facility] SO2 [facility] POC i-STAT Venous 32 mmol/L [facility] Total CO2 [facility] POC i-STAT Sodium 140 136 - 145 mmol/L [facility] POC i-STAT 4.1 3.4 - 5.1 mmol/L [facility] Potassium [facility] POC i-STAT Ionized 1.18 1.13 - 1.32 mmol/L [facility] v Calcium [facility] POC i-STAT Glucose 106 70 - 140 mg/dL [facility] POC i-STAT 35 (L) 41 - 53 % [facility] Hematocrit [facility] POC i-STAT 11.9 (L) 13.5 - 18.0 g/dL [facility] Hemoglobin [facility] POC Specimen Whole Blood Performing Organization Address City/State/ZIP Code P ronel Number POINT OF CARE TEST [address] [place], [place] [id number] [place] [address] POC [address] [place] [address] * POCT ID NOW COVID-19 (10/19/2020 8:06 AM EDT) POCT ID NOW Negative Negative [facility] COVID-19 Comment: Hospital POC Test performed using the Gaytan ID NOW COVID-19 assay. This test is only for use under the Food and Drug Administration's Emergency Use Authorization. Additional information is available on the following FDA websites for health care providers and patients. https://www.fda.gov/media/0588 23/download https://www.fda.gov/media/1232 24/download First COVID-19 UNKNOWN [facility] Test? Hospital POC Employed in UNKNOWN [facility] POC setting? Symptomatic for UNKNOWN [facility] COVID-19 as Hospital POC defined by CDC? Date of symptom UNKNOWN [facility] onset? Hospital POC ([id number]) Hospitalized UNKNOWN [facility] for COVID-19? Hospital POC Admitted to ICU UNKNOWN [facility] for COVID-19? Hospital POC Resident in a UNKNOWN [facility] POC (group) care setting? ? UNKNOWN [facility] POC Specimen Swab Performing Organization Address City/State/ZIP Code P ronel Number POINT OF CARE TEST [address] [place], [place] [id number] [place] [address] POC [address] [place] [address] documented in this encounter Visit Diagnoses Diagnosis Lymph nodes enlarged - Primary Enlargement of lymph nodes documented in this encounter Administered Medications Action Date Dose Rate Site Medication Order MAR Action fentaNYL (SUBLIMAZE) (PF) injection 12. 5 mcg 12.5 mcg, Intravenous, Every 5 min PRN, Moderate Pain (Pain Scale Score 4-6), Starting on Sun10/19/20 at 1123, For 10 doses, Recovery fentaNYL (SUBLIMAZE) (PF) injection 25 mcg 25 mcg, Intravenous, Every 5 min PRN, Severe Pain (Pain Scale Score 7-10), Starting on Sun10/19/20 at 1123, For 10 doses, Recovery sodium chloride (preservative free) 0.9 % flush 3 mL 3 mL, Intravenous, Every 8 hours, First dose on Sun10/19/20 at 0815, For 30 days, Pre-op, Saline Lock. Flush Q8H and after each use to Saline Lock. sodium chloride (preservative free) 0.9 % flush 3 mL 3 mL, Intravenous, PRN, Line Care, Starting on Sun10/19/20 at 0814, For 30 days, Pre-op, Saline Lock. Flush Q8H an d after each use to Saline Lock. documented in this encounter Active and Recently Administered Medications Times are shown in EDT. 10/18/2020 10/19/2020 Medication Order 10/17/2020 1145 (Due)1745 (Due)2345 (Due) acetaminophen (TYLENOL) tablet 650 mg 650 mg, Oral, Every 6 hours, First dose on Sun10/19/20 at 1145, For 14 days, Maximum daily dose of acetaminophen is 3,000 mg from all sources in 24 hours. 0815 (Due) chlorhexidine (HIBICLENS) 4 % liquid Topical, Once, On Sun10/19/20 at 0815, For 1 dose, To be done by the floor nurse prior to patients arrival to OR., Pre-op 0815 (Due)1615 (Due) sodium chloride (preservative free) 0.9 % flush 3 mL 3 mL, Intravenous, Every 8 hours, First dose on Sun10/19/20 at 0815, For 30 days, Pre-op, Saline Lock. Flush Q8H and after each use to Saline Lock. 10/18/2020 10/19/2020 Medication Order 10/17/2020 1117 (Given - Provider: Balaji Moore MD - Comment: MIXED EQUALLY WITH LIDOCAINE 1%) bupivacaine (PF) (MARCAINE) 0.25 % injection (CANCELED) PRN, Starting on Sun10/19/20 at 1117, Intra-op fentaNYL (SUBLIMAZE) (PF) injection 12. 5 mcg 12.5 mcg, Intravenous, Every 5 min PRN, Moderate Pain (Pain Scale Score 4-6), Starting on Sun10/19/20 at 1123, For 10 doses, Recovery fentaNYL (SUBLIMAZE) (PF) injection 25 mcg 25 mcg, Intravenous, Every 5 min PRN, Severe Pain (Pain Scale Score 7-10), Starting on Sun10/19/20 at 1123, For 10 doses, Recovery 1117 (Given - Provider: Balaji Moore MD) lidocaine (XYLOCAINE) 1 % injection (CANCELED) PRN, Starting on Sun10/19/20 at 1117, Intra-op oxyCODONE (ROXICODONE) immediate releas e tablet 5 mg 5 mg, Oral, Every 6 hours PRN, Moderate Pain (Pain Scale Score 4-6), For breakthrough pain not controlled by non-narcotic medications, Starting on Sun10/19/20 at 1140, For 8 doses, Oxycodone immediate release is limited to 10 mg per dose. Higher doses ([facility] only) require Pain Service consultation and approval. sodium chloride (preservative free) 0.9 % flush 3 mL 3 mL, Intravenous, PRN, Line Care, Starting on Sun10/19/20 at 0814, For 30 days, Pre-op, Saline Lock. Flush Q8H an d after each use to Saline Lock. documented in this encounter
--- OUTSIDE RECORDS SUMMARY | 2021-01-11 06:33 | CCD | Continuity of Care Document ---
Author Author Ino LUGO [place] Organization Unknown Address [address] [place] [address] [address] [place] [address] Phone [phone] Care Team Providers Care Eye Glass Frame Polisher Name Role Phone Yue Morris D.O. AUTM [phone] Jignesh Vann M.D. AUTM [phone] Jimmy Stallworth M.D. AUTM [phone] Problems Active Problems Provider Date Chronic kidney [...] F O2 % BldC Oximetry 97 % [place] Body Weight 130 lb 09/14/2020 1:51pm BP Systolic 130 mmHg BP Diastolic 78 mmHg Height 64 inches 5'4" Weight 157.38 lb BMI (Body Mass Index) 27.0 kg/m2 Heart Rate 68 /min Respiratory Rate 14 /min Body Temperature 98.1 F O2 % BldC Oximetry 98 % [place] Body Weight 130 lb Results Test Acquired Date Facility Test Result H/L Range Note CBC With Differential 09/18/2020 [facility] Outpatient Mariely garvey (Registration) [address] [place] [address] [phone] White Blood Count 6.6 10 Normal 4.0-10.0 [...] 36.0-66.0 Lymph % 17.3 % Low 24.0-44.0 Perry % 12.7 % High 2.0-8.0 Eos % 10.9 % High 0.0-3.0 Baso % 0.9 % Normal 0.0-1.0 Immature Granulocyte % 0.3 % Normal 0-3.0 Nucleated Red Blood Cell % 0.0 % Normal 0-0 Neutrophils # 3.8 10 Normal 1.5-8.5 Lymph # 1.1 10 Low 1.5-5.0 Perry # 0.8 10 Normal 0.0-0.8 Eos # 0.7 10 High 0.0-0.5 Baso # 0.1 10 Normal 0.0-0.2 Comprehensive Metabolic Profil 09/18/2020 [facility] Testing (Registration) [address] [place] [address] [phone] Glucose, Fasting 78 mg/dL Normal 70-100 Blood [...] Ratio 1.4 Normal Laboratory test finding 09/18/2020 [facility] Outpatient T esting (Registration) [address] [place] [address] [phone] LDH Lactate Dehydrogenase 188 U/L Normal 87-241 CBC With Differential 09/18/2020 [facility] Outpatient Mariely ting (Registration) [address] [place] [address] [phone] White Blood Count 6.8 10 Normal 4.0-10.0 [...] 36.0-66.0 Lymph % 16.6 % Low 24.0-44.0 Perry % 13.6 % High 2.0-8.0 Eos % 9.2 % High 0.0-3.0 Baso % 1.0 % Normal 0.0-1.0 Immature Granulocyte % 0.3 % Normal 0-3.0 Nucleated Red Blood Cell % 0.0 % Normal 0-0 Neutrophils # 4.0 10 Normal 1.5-8.5 Lymph # 1.1 10 Low 1.5-5.0 Perry # 0.9 10 High 0.0-0.8 Eos # 0.6 10 High 0.0-0.5 Baso # 0.1 10 Normal 0.0-0.2 Total Iron Binding Capacit 09/18/2020 [facility] Outpatien t Testing (Registration) [address] [place] [address] [phone] Iron (Fe) 59 g/dL Low 65-175 Total Iron Binding Capacity 315 g/dL Normal 250-450 Percent Saturation 18.7 % Low 19.7-50.0 Laboratory test finding 09/18/2020 [facility] Outpatient T esting (Registration) [address] [place] [address] [phone] Ferritin 395 NG/ML High 26-388 Erythropoietin 76.0 mIU/mL High 2.6-18.5 2 Laboratory test finding 08/05/2020 [facility] Outpatient T esting (Registration) [address] [place] [address] [phone] Potassium Serum 4.1 mEq/L Normal 3.5-5.1 3 Order 07/29/2020 In House Orders EKG see report 1 Units are mL/min/1.73 m2 Chronic Kidney Disease Staging per NKF: Stage I & II GFR >=60 Normal to Mildly Decreased Stage III GFR 30-59 Moderately Decreased Stage IV GFR 15-29 Severely Decreased Stage V GFR <15 Very Little GFR Left ESRD GFR <15 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 Values obtained with different assay methods or kits cannot be used interchangeably. Results cannot be interpreted as absolute evidence of the presence or absence of malignant disease. Performed at: RN - [facility] [address] [id number] Internet Sales Consultant: Janelle Bearden MD, Phone: [phone] Comments: NO IV PUNCTURES IN LEFT ARM By: SANIR Time: 1054 Comments: NO IV PUNCTURES IN LEFT ARM By: DEYA Time: 1054 Procedures Date Code Description Status 09/14/2020 08805 Office/Outpatient Established Mo d MDM 30-39 Min Completed 07/29/2020 73380 Office/Outpatient New Low MDM 30 -44 Minutes Completed 07/29/2020 63995 Electrocardiogram Complete Compl eted Medical Devices Description No Information Available Encounters Type Date Location Provider Dx Diagnosis Office Visit 12/23/2020 2:00p [facility] MARIUM Grossman Z00.00 Encntr for general adult med ical exam w/o abnormal findings N18.6 End stage renal disease E78.5 Hyperlipidemia, unspecified J45.20 Mild intermittent asthma, un complicated F41.1 Generalized anxiety disorder Office Visit 09/14/2020 2:00p [facility] MARIUM Grossman K62.5 Hemorrhage of anus and rectu m Office Visit 07/29/2020 3:40p [facility] MARIUM Grossman Z01.818 Encounter for other [...] 10:30 am - Yue Morris D.O. at [facility] Functional Status Description No Information Available Mental Status Description No Information Available Referrals Refer to Reason for Referral Status Appt Date Jimmy Stallworth M.D. 65 year old dialysis depende nt male, known to your practice, with 1 month of BRBPR. Rectal exam was unremarkable, except that it was positive for occult blood. Please eval and treat. Closed 09/30/[address] [place] [address] [phone]
--- OUTSIDE RECORDS SUMMARY | 2021-01-11 06:33 | CCD | Continuity of Care Document ---
Author Author Ino WOODRUFF Organization Unknown Address [address] [place] [address] [place] [address] Phone [phone] Care Team Providers Care Produce Buyer Name Role Phone YuriYue Dawson DO AUTM Erich Harris MD AUTM [phone] Dave Aguirre MD AUTM [phone] Problems Description No Information Available Social History [...] Available Procedures Date Code Description Status 11/16/2020 12434 Echocardiogram 2-D Doppler Color Completed Medical Devices Description No Information Available Encounters Description No Information Available Assessments Date Code Description Provider 11/16/2020 Z01.818 Encounter for other preprocedura l examination ECHO Plan of Treatment No Information Available Functional Status Description No Information Available Mental Status Description No Information Available Referrals Description No Information Available
--- OUTSIDE RECORDS SUMMARY | 2021-01-11 06:33 | CCD | Continuity of Care Document ---
Author Author Cardiac Ino POWELL Organization Unknown Address [address] [place] [address], [facility] [place] [address] Phone [phone] Care Team Providers Care Hosting Engineer Name Role Phone Yue Morris DO AUTM Erich Harris MD AUTM [phone] LegDave hoffman MD AUTM [phone] Problems Description No Information Available Social History [...] Available Procedures Date Code Description Status 11/16/2020 95074 Echocardiogram 2-D Doppler Color Completed Medical Devices Description No Information Available Encounters Description No Information Available Assessments Date Code Description Provider 11/16/2020 Z01.818 Encounter for other preprocedura l examination ECHO Plan of Treatment No Information Available Functional Status Description No Information Available Mental Status Description No Information Available Referrals Description No Information Available
--- OUTSIDE RECORDS SUMMARY | 2021-01-11 06:33 | CCD | Continuity of Care Document ---
Author Author Ino PARSONS M.D. Organization Unknown Address [address] [place], [address] [place] [address] Phone [phone] Care Team Providers Care Clinical Admissions Manager Name Role Phone Yazmin Ndiaye M.D. AUTM Yue Morris D.O. AUTM AUTM Unavailable Conner Mcgee AUTM [phone] Problems Active Problems Provider Date Inguinal hernia without obstruction AND without gangrene Ramiro Parsons M.D. Onset: 01/22/2013 Sprain of hip Jimmy Parsons M.D. Onset: 01/22/2013 Social History Type Date [...] HCL 100mg Tablets daily Unknown Amlodipine Besylate 2.5mg Tablets 1 po qd 30tabs Unknown Crestor [...] 800mg Tablets three times a day Unknown Hanane Allergy 180mg Tablets 1 by mouth every day Unknown Velphoro 500mg Chewtabs 1 tab by mouth every day Unknown Florajen Acidophilus Capsules 1 tab by mouth every day Unknown Immunizations Description No Information Available Vital Signs Date Vital Result Comment 12/13/2020 11:08am BP Systolic 132 mmHg BP Diastolic 64 mmHg Body Temperature 98.4 F Height 66 inches 5'6" Weight 157.38 lb BMI (Body Mass Index) 25.4 kg/m2 [place] Body Weight 142 lb Weight 71.385 kg BSA (Body Surface Area) 1.81 m2 12/01/2020 11:07am BP Systolic 124 mmHg BP Diastolic 69 mmHg Height 66 inches 5'6" Weight 155.00 lb BMI (Body Mass Index) 25.0 kg/m2 [place] Body Weight 142 lb Weight 70.308 kg BSA (Body Surface Area) 1.79 m2 Results Test Acquired Date Facility Test Result H/L Range Note Laboratory test finding 08/05/2020 [facility] [address] [place] [address] [phone] Potassium Serum 4.1 mEq/L Normal 3.5-5.1 1 1 Comments: NO IV PUNCTURES IN LEFT ARM By: DEYA Time: 1054 Comments: NO IV PUNCTURES IN LEFT ARM By: DEYA Time: 1054 Procedures Date Code Description Status 12/01/2020 88525 Office/Outpatient New Low MDM 30 -44 Minutes Completed 08/05/[address] Fistula Artery-Vein Completed Medical Devices Description No Information Available Encounters Type Date Location Provider Dx Diagnosis Office Visit 12/01/2020 10:40a [facility] Jignesh Pineda MD R19.5 Other fecal abnormalities Office Visit 09/02/2020 11:30a [facility] Rehana nguyen MD N18.6 End stage renal disease Z48.812 Encntr for surgical aftcr fo llowing surgery on the circ sys Office Visit 08/18/2020 10:00a [facility] MARIUM Rodriguez N18.6 End stage renal [...] rizzo MD Plan of Treatment Future Appointment(s):* 01/20/2021 10:45 am - MARIUM Cedeno at [facility] * 01/11/2021 7:30 am - Jimmy Parsons M.D. at [facility] 12/01/2020 - Jignesh Pineda MD* R19.5 Other fecal abnormalities * Functional Status Description No Information Available Mental Status Description No Information Available Referrals Refer to Dr Reason for Referral Status Appt Date Jimmy Parsons M.D. EVAL FOR PD CATHETER Scheduled 12/03 [facility] [address] [place] [address] [address] [place], [place] [address] [phone] Jignesh Pineda M.D. BRBPR Scheduled 12/01/2020 [facility] Gastroenterology [address] [place] [address], [address] [place] [address] [phone]
--- OUTSIDE RECORDS SUMMARY | 2021-01-11 06:34 | CCD ---
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 Name Role Phone Debbie BOWIE Unavailable Unavailable JESSIE IQBAL MD Unavailable Unavailable JESSIE IQBAL MD Unavailable Unavailable JESSIE IQBAL MD Unavailable Unavailable JESSIE IQBAL MD Unavailable Unavailable Everardo, Conner PA Unavailable Unavailable Everardo, Conner PA Unavailable Unavailable Everardo, Conner PA Unavailable Unavailable Everardo, Conner PA Unavailable Unavailable Everardo, Conner PA Unavailable Unavailable Everardo, Conner PA Unavailable Unavailable Everardo, Conner PA Unavailable Unavailable Everardo, Conner PA Unavailable Unavailable Everardo, Conner PA Unavailable Unavailable Everardo, Conner PA Unavailable Unavailable Everardo, Conner PA Unavailable Unavailable Everardo, Conner PA Unavailable Unavailable Everardo, Conner PA Unavailable Unavailable Everardo, Conner PA Unavailable Unavailable Everardo, Conner PA Unavailable Unavailable Everardo, Conner PA Unavailable Unavailable Everardo, Conner PA Unavailable Unavailable Everardo, Conner PA Unavailable Unavailable Everardo, Conner PA Unavailable Unavailable Everardo, Conner PA Unavailable Unavailable Everardo, Conner PA Unavailable Unavailable Everardo, Conner PA Unavailable Unavailable Everardo, Conner PA Unavailable Unavailable Everardo, Conner PA Unavailable Unavailable Everardo, Conner PA Unavailable Unavailable Everardo, Conner PA Unavailable Unavailable Everardo, Conner PA Unavailable Unavailable Everardo, Conner PA Unavailable Unavailable Everardo, Conner PA Unavailable Unavailable Everardo, Conner PA Unavailable Unavailable Everardo, Conner PA Unavailable Unavailable Everardo, Conner PA Unavailable Unavailable Everardo, Conner PA Unavailable Unavailable Everardo, Conner PA Unavailable Unavailable Everardo, Conner PA Unavailable Unavailable Everardo, Conner PA Unavailable Unavailable Everardo, Conner PA Unavailable Unavailable Everardo, Conner PA Unavailable Unavailable Everardo, Conner PA Unavailable Unavailable Everardo, Conner PA Unavailable Unavailable Everardo, Conner PA Unavailable Unavailable Everardo, Conner PA Unavailable Unavailable Everardo, Conner PA Unavailable Unavailable Everardo, Conner PA Unavailable Unavailable Everardo, Conner PA Unavailable Unavailable Everardo, Conner PA Unavailable Unavailable Everardo, Conner PA Unavailable Unavailable Everardo, Conner PA Unavailable Unavailable Everardo, Conner PA Unavailable Unavailable Everardo, Conner PA Unavailable Unavailable Everardo, Conner PA Unavailable Unavailable Everardo, Conner PA Unavailable Unavailable Everardo, Conner PA Unavailable Unavailable Everardo, Conner PA Unavailable Unavailable Kylah SHAVER Unavailable Unavailable Edvin Nova Unavailable Edvin GUPTA Unavailable Unavailable Amanda Ngo MD Unavailable Unavailable Amanda Ngo MD Unavailable Unavailable Amanda Ngo MD Unavailable Unavailable Amanda Ngo MD Unavailable Unavailable DannyerstranAmanda barnes MD Unavailable Unavailable Amanda Ngo MD Unavailable Unavailable RenantranAmanda barnes MD Unavailable Unavailable RenantranAmanda barnes MD Unavailable Unavailable Amanda Ngo MD Unavailable Unavailable RenantranAmanda barnes MD Unavailable Unavailable Amanda Ngo MD Unavailable Unavailable RenantranAmanda barnes MD Unavailable Unavailable RenantranAmanda barnes MD Unavailable Unavailable RenantranAmanda barnes MD Unavailable Unavailable DannyerstranAmanda barnes MD Unavailable Unavailable CederstranAmanda barnes MD Unavailable Unavailable Thankachan, Reeba PEDODONTIST Unavailable Unavailable Thankachan, Reeba PEDODONTIST Unavailable Unavailable Thankachan, Reeba PEDODONTIST Unavailable Unavailable Thankachan, Reeba PEDODONTIST Unavailable Unavailable Thankachan, Reeba PEDODONTIST Unavailable Unavailable Thankachan, Reeba PEDODONTIST Unavailable Unavailable Thankachan, Reeba PEDODONTIST Unavailable Unavailable Thankachan, Reeba PEDODONTIST Unavailable Unavailable Thankachan, Reeba PEDODONTIST Unavailable Unavailable Thankachan, Reeba PEDODONTIST Unavailable Unavailable Thankachan, Reeba PEDODONTIST Unavailable Unavailable Thankachan, Reeba PEDODONTIST Unavailable Unavailable Thankachan, Reeba PEDODONTIST Unavailable Unavailable Thankachan, Reeba PEDODONTIST Unavailable Unavailable Thankachan, Reeba PEDODONTIST Unavailable Unavailable Thankachan, Reeba PEDODONTIST Unavailable Unavailable Thankachan, Reeba PEDODONTIST Unavailable Unavailable Thankachan, Reeba PEDODONTIST Unavailable Unavailable Thankachan, Reeba PEDODONTIST Unavailable Unavailable Thankachan, Reeba PEDODONTIST Unavailable Unavailable Thankachan, Reeba PEDODONTIST Unavailable Unavailable Thankachan, Reeba PEDODONTIST Unavailable Unavailable Thankachan, Reeba PEDODONTIST Unavailable Unavailable Thankachan, Reeba PEDODONTIST Unavailable Unavailable Thankachan, Reeba PEDODONTIST Unavailable Unavailable Thankachan, Reeba PEDODONTIST Unavailable Unavailable Thankachan, Reeba PEDODONTIST Unavailable Unavailable Thankachan, Reeba PEDODONTIST Unavailable Unavailable Thankachan, Reeba PEDODONTIST Unavailable Unavailable Thankachan, Reeba PEDODONTIST Unavailable Unavailable Thankachan, Reeba PEDODONTIST Unavailable Unavailable Thankachan, Reeba PEDODONTIST Unavailable Unavailable Thankachan, Reeba PEDODONTIST Unavailable Unavailable Thankachan, Reeba PEDODONTIST Unavailable Unavailable Thankachan, Reeba PEDODONTIST Unavailable Unavailable Thankachan, Reeba PEDODONTIST Unavailable Unavailable Thankachan, Reeba PEDODONTIST Unavailable Unavailable Thankachan, Reeba PEDODONTIST Unavailable Unavailable Thankachan, Reeba PEDODONTIST Unavailable Unavailable Thankachan, Reeba PEDODONTIST Unavailable Unavailable Thankachan, Reeba PEDODONTIST Unavailable Unavailable Thankachan, Reeba PEDODONTIST Unavailable Unavailable Thankachan, Reeba PEDODONTIST Unavailable Unavailable Thankachan, Reeba PEDODONTIST Unavailable Unavailable Thankachan, Reeba PEDODONTIST Unavailable Unavailable Thankachan, Reeba PEDODONTIST Unavailable Unavailable Thankachan, Reeba PEDODONTIST Unavailable Unavailable Thankachan, Reeba PEDODONTIST Unavailable Unavailable Dat PRINGLE Unavailable Unavailable Jodi NOVA Unavailable Unavailable Jodi NOVA Unavailable Unavailable Jodi NOVA Unavailable Unavailable Keke Kirby MD Unavailable Unavailable Keke Kirby MD Unavailable Unavailable Keke Kirby MD Unavailable Unavailable Keke Kirby MD Unavailable Unavailable Keke Kirby MD Unavailable Unavailable Keke Kirby MD Unavailable Unavailable Keke Kirby MD Unavailable Unavailable Keke Kirby MD Unavailable Unavailable Keke Kirby MD Unavailable Unavailable Keke Kirby MD Unavailable Unavailable Keke Kirby MD Unavailable Unavailable Juan Jose, Siddhartha DO Unavailable Unavailable Juan Jose, Siddhartha DO Unavailable Unavailable Juan Jose, Siddhartha DO Unavailable Unavailable Juan Jose, Siddhartha DO Unavailable Unavailable Juan Jose, Siddhartha DO Unavailable Unavailable Juan Jose, Siddhartha DO Unavailable Unavailable Juan Jose, Siddhartha DO Unavailable Unavailable Juan Jose, Siddhartha DO Unavailable Unavailable Juan Jose, Siddhratha DO Unavailable Unavailable Juan Jose, Siddhartha DO Unavailable Unavailable Juan Jose, Siddhartha DO Unavailable Unavailable Juan Jose, Siddhartha DO Unavailable Unavailable Juan Jose, Siddhartha DO Unavailable Unavailable Juan Jose, Siddhartha DO Unavailable Unavailable Juan Jose, Siddhartha DO Unavailable Unavailable Juan Jose, Siddhartha DO Unavailable Unavailable Juan Jose, Siddhartha DO Unavailable Unavailable Juan Jose, Siddhartha DO Unavailable Unavailable Juan Jose, Siddhartha DO Unavailable Unavailable Juan Jose, Siddhartha DO Unavailable Unavailable Juan Jose, Siddhartha DO Unavailable Unavailable Juan Jose, Siddhartha DO Unavailable Unavailable Jua Njose, Siddhartha DO Unavailable Unavailable Juan Jose, Siddhartha DO Unavailable Unavailable Juan Jose, Siddhartha DO Unavailable Unavailable Juan Jose, Siddhartha DO Unavailable Unavailable Juan Jose, Siddhartha DO Unavailable Unavailable Juan Jose, Siddhartha DO Unavailable Unavailable Juan Jose, Siddhartha DO Unavailable Unavailable Juan Jose, Siddhartha DO Unavailable Unavailable Juan Jose, Siddhartha DO Unavailable Unavailable Juan Jose, Siddhartha DO Unavailable Unavailable Juan Jose, Siddhartha DO Unavailable Unavailable Juan Jose, Siddhartha DO Unavailable Unavailable Juan Jose, Siddhartha DO Unavailable Unavailable Juan Jose, Siddhartha DO Unavailable Unavailable Juan Jose, Siddhartha DO Unavailable Unavailable Juan Jose, Siddhartha DO Unavailable Unavailable Juan Jose, Siddhartha DO Unavailable Unavailable Juan Jose, Siddhartha DO Unavailable Unavailable Juan Jose, Siddhartha DO Unavailable Unavailable Juan Jose, Siddhartha DO Unavailable Unavailable Juan Jose, Siddhartha DO Unavailable Unavailable Juan Jose, Siddhartha DO Unavailable Unavailable Juan Jose, Siddhartha DO Unavailable Unavailable Juan Jose, Siddhartha DO Unavailable Unavailable Juan Jose, Siddhartha DO Unavailable Unavailable Juan Jose, Siddhartha DO Unavailable Unavailable Juan Jose, Siddhartha DO Unavailable Unavailable Juan Jose, Siddhartha DO Unavailable Unavailable Juan Jose, Siddhartha DO Unavailable Unavailable Juan Jose, Siddhartha DO Unavailable Unavailable Juan Jose, Siddhartha DO Unavailable Unavailable Juan Jose, Siddhartha DO Unavailable Unavailable Juan Jose, Siddhartha DO Unavailable Unavailable Juan Jose, Siddhartha DO Unavailable Unavailable Juan Jose, Siddhartha DO Unavailable Unavailable Juan Jose, Siddhartha DO Unavailable Unavailable Juan Jose, Siddhartha DO Unavailable Unavailable Juan Jose, Siddhartha DO Unavailable Unavailable Juan Jose, Siddhartha DO Unavailable Unavailable Juan Jose, Siddhartha DO Unavailable Unavailable Juan Jose, Siddhartha DO Unavailable Unavailable Juan Jose, Siddhartha DO Unavailable Unavailable Juan Jose, Siddhartha DO Unavailable Unavailable Juan Jose, Siddhartha DO Unavailable Unavailable Juan Jose, Siddhartha DO Unavailable Unavailable Juan Jose, Siddhartha DO Unavailable Unavailable Juan Jose, Siddhartha DO Unavailable Unavailable Juan Jose, Siddhartha DO Unavailable Unavailable Juan Jose, Siddhartha DO Unavailable Unavailable Juan Jose, Siddhartha DO Unavailable Unavailable Juan Jose, Siddhartha DO Unavailable Unavailable Juan Jose, Siddhartha DO Unavailable Unavailable Juan Jose, Siddhartha DO Unavailable Unavailable Steven, F Erich Unavailable Steven, F Erich Unavailable Steven, F Erich Unavailable Steven, F Erich Unavailable Steven, F Erich Unavailable Steven, F Erich Unavailable Steven, F Erich Unavailable Steven, F Erich Unavailable Steven, F Erich Unavailable Steven, F Erich Unavailable AMERICA, JOSE WELSH Unavailable Unavailable REINDL, JOSE WELSH Unavailable Unavailable REINDL, JOSE WELSH Unavailable Unavailable REINDL, JOSE WELSH Unavailable Unavailable REINDL, JOSE WELSH Unavailable Unavailable REINDL, JOSE WELSH Unavailable Unavailable REINDL, JOSE WELSH Unavailable Unavailable REINDL, JOSE WELSH Unavailable Unavailable REINDL, JOSE WELSH Unavailable Unavailable REINDL, JOSE WELSH Unavailable Unavailable REINDL, JOSE WELSH Unavailable Unavailable REINDL, JOSE WELSH Unavailable Unavailable REINDL, JOSE WELSH Unavailable Unavailable REINDL, JOSE WELSH Unavailable Unavailable REINDL, JOSE WELSH Unavailable Unavailable REINDL, JOSE WELSH Unavailable Unavailable REINDL, JOSE WELSH Unavailable Unavailable REINDL, JOSE WELSH Unavailable Unavailable REINDL, JOSE WELSH Unavailable Unavailable REINDL, JOSE WELSH Unavailable Unavailable REINDL, JOSE WELSH Unavailable Unavailable REINDL, JOSE WELSH Unavailable Unavailable REINDL, JOSE WELSH Unavailable Unavailable REINDL, JOSE WELSH Unavailable Unavailable REINDL, JOSE WELSH Unavailable Unavailable REINDL, JSOE WELSH Unavailable Unavailable REINDL, JOSE WELSH Unavailable Unavailable REINDL, JOSE WELSH Unavailable Unavailable REINDL, JOSE WELSH Unavailable Unavailable REINDL, JOSE WELSH Unavailable Unavailable REINDL, JOSE WELSH Unavailable Unavailable REINDLJOSE MD Unavailable Unavailable REINDL, JOSE WELSH Unavailable Unavailable REINDL, JOSE WELSH Unavailable Unavailable REINDL, JOSE WELSH Unavailable Unavailable REINDL, JOSE WELSH Unavailable Unavailable REINDL, JOSE WELSH Unavailable Unavailable REINDL, JOSE WELSH Unavailable Unavailable REINDL, JOSE WELSH Unavailable Unavailable REINJOSE CALIXTO MD Unavailable Unavailable REINJOSE CALIXTO MD Unavailable Unavailable REINDLJOSE MD Unavailable Unavailable PODOLAK, A MELISSA Unavailable Unavailable PODOLAK, A MELISSA Unavailable Unavailable PODOLAK, A MELISSA Unavailable Unavailable PODOLAK, A MELISSA Unavailable Unavailable AUDIE GALINDO MD Unavailable Unavailable AUDIE GALINDO MD Unavailable Unavailable AUDIE GALINDO MD Unavailable Unavailable AUDIE GALINDO MD Unavailable Unavailable AUDIE GALINDO MD Unavailable Unavailable AUDIE GALINDO MD Unavailable Unavailable AUDIE GALINDO MD Unavailable Unavailable AUDIE GALINDO MD Unavailable Unavailable AUDIE GALINDO MD Unavailable Unavailable AUDIE GALINDO MD Unavailable Unavailable AUDIE GALINDO MD Unavailable Unavailable AUDIE GALINDO MD Unavailable Unavailable AUDIE GALINDO MD Unavailable Unavailable AUDIE GALINDO MD Unavailable Unavailable LegDat hoffman Jr, MD Unavailable Unavailable LegDat hoffman Jr, MD Unavailable Unavailable Leggat Dat Gallagher MD Unavailable Unavailable LegDat hoffman Jr, MD Unavailable Unavailable LegDat hoffman Jr, MD Unavailable Unavailable LegDat hoffman Jr, MD Unavailable Unavailable LegDat hoffman Jr, MD Unavailable Unavailable LegDat hoffman Jr, MD Unavailable Unavailable LegDat hoffman Jr, MD Unavailable Unavailable LegDat hoffman Jr, MD Unavailable Unavailable LegDat hoffman Jr, MD Unavailable Unavailable LegDat hoffman Jr, MD Unavailable Unavailable LegDat hoffman Jr, MD Unavailable Unavailable LegDat hoffman Jr, MD Unavailable Unavailable LegDat hoffman Jr, MD Unavailable Unavailable LegDat hoffman Jr, MD Unavailable Unavailable LegDat hoffman Jr, MD Unavailable Unavailable LegDat hoffman Jr, MD Unavailable Unavailable LegDat hoffman Jr, MD Unavailable Unavailable LegDta hoffman Jr, MD Unavailable Unavailable LegDat hoffman Jr, MD Unavailable Unavailable LegDat hoffman Jr, MD Unavailable Unavailable LegDat hoffman Jr, MD Unavailable Unavailable LegDat hoffman Jr, MD Unavailable Unavailable LegDat hoffman Jr, MD Unavailable Unavailable LegDat hoffman Jr, MD Unavailable Unavailable LegDat hoffman Jr, MD Unavailable Unavailable LegDat hoffman Jr, MD Unavailable Unavailable LegDat hoffman Jr, MD Unavailable Unavailable Leggat Dat Gallagher MD Unavailable Unavailable Leggat Dat Gallagher MD Unavailable Unavailable Leggat Dat Gallagher MD Unavailable Unavailable Leggat Dat Gallagher MD Unavailable Unavailable Leggat , Dat Acosta MD Unavailable Unavailable Leggat Dat Gallagher MD Unavailable Unavailable Leggat Dat Gallagher MD Unavailable Unavailable Leggat Dat Gallagher MD Unavailable Unavailable Leggat , Dat Acosta MD Unavailable Unavailable Leggat , Dat Acosta MD Unavailable Unavailable Leggat Dat Gallagher MD Unavailable Unavailable Leggat Dat Gallagher MD Unavailable Unavailable Leggat Dat Gallagher MD Unavailable Unavailable Leggat , Dat Acosta MD Unavailable Unavailable Leggat Dat Gallagher MD Unavailable Unavailable Leggat , Dat Acosta MD Unavailable Unavailable Leggat , Dat Acosta MD Unavailable Unavailable Leggat , Dat Acosta MD Unavailable Unavailable Epps, L Patricia RPA Unavailable Unavailable Epps, L Patricia RPA Unavailable Unavailable Epps, L Patricia RPA Unavailable Unavailable Epps, L Patricia RPA Unavailable Unavailable Epps, L Patricia RPA Unavailable Unavailable Epps, L Patricia RPA Unavailable Unavailable Epps, L Patricia RPA Unavailable Unavailable Epps, L Patricia RPA Unavailable Unavailable Epps, L Patricia RPA Unavailable Unavailable Epps, L Patricia RPA Unavailable Unavailable Epps, L Patricia RPA Unavailable Unavailable Epps, L Patricia RPA Unavailable Unavailable Epps, L Patricia RPA Unavailable Unavailable Epps, L Patricia RPA Unavailable Unavailable Epps, L Patricia RPA Unavailable Unavailable Epps, L Patricia RPA Unavailable Unavailable Epps, L Patricia RPA Unavailable Unavailable Epps, L Patricia RPA Unavailable Unavailable Epps, L Patricia RPA Unavailable Unavailable Epps, L Patricia RPA Unavailable Unavailable Epps, L Patricia RPA Unavailable Unavailable Epps, L Patricia RPA Unavailable Unavailable Epps, L Patricia RPA Unavailable Unavailable Epps, L Patricia RPA Unavailable Unavailable Epps, L Patricia RPA Unavailable Unavailable Epps, L Patricia RPA Unavailable Unavailable Epps, L Patricia RPA Unavailable Unavailable Epps, L Patricia RPA Unavailable Unavailable Epps, L Patricia RPA Unavailable Unavailable Epps, L Patricia RPA Unavailable Unavailable Epps, L Patricia RPA Unavailable Unavailable Epps, L Patricia RPA Unavailable Unavailable CLINTON WHATLEY MD Unavailable Unavailable CLINTON WHATLEY MD Unavailable Unavailable CLINTON WHATLEY MD Unavailable Unavailable CLINTON WHATLEY MD Unavailable Unavailable Re-disclosure Warning The records that you are about to access may contain information from federally-assisted alcohol or drug abuse programs. If such information is present, then the following federally mandated warning applies: This information has been disclosed to you from records protected by federal confidentiality rules (42 CFR part 2). The federal rules prohibit you from making any further disclosure of this information unless further disclosure is expressly permitted by the written consent of the person to whom it pertains or as otherwise permitted by 42 CFR part 2. A general authorization for the release of medical or other information is NOT sufficient for this purpose. The Federal rules restrict any use of the information to criminally investigate or prosecute any alcohol or drug abuse patient.The records that you are about to access may contain highly sensitive health information, the redisclosure of which is protected by Article 27-F of the [facility] Public Health law. If you continue you may have access to information: Regarding HIV / AIDS; Provided by facilities licensed or operated by the [facility] Office of Mental Health; or Provided by the [facility] Office for People With Developmental Disabilities. If such information is present, then the following [facility] mandated warning applies: This information has been disclosed to you from confidential records which are protected by state law. State law prohibits you from making any further disclosure of this information without the specific written consent of the person to whom it pertains, or as otherwise permitted by law. Any unauthorized further disclosure in violation of state law may result in a fine or correction sentence or both. A general authorization for the release of medical or other information is NOT sufficient authorization for further disc losure. Family History Family Member Name Family Member Gender Family Member Status Date o f Status Description Data Source(s) Unknown Male Problem [facility] ([facility]) Unknown Female Problem [facility], [facility] Unknown Unknown Problem [facility] ([facility] Encounters Encounter Providers Location Date Indications Data Source(s ) Outpatient Attender: CLINTON WHATLEY MDAttender: AUDIE GALINDO MD 09/08/2021 12:00:00 AM [facility] Outpatient Attender: Siddhartha Ingram DO 06/30/2021 12:00:00 AM [facility] Outpatient Attender: Siddhartha Ingram DO -[id number] 12/31/19 12:00:00 AM EDT - 12/30/2020 03:55:42 PM [facility] Office Visit Attender: Conner CAUSEY [facility] 12/23/2020 02:00:00 PM EDT [facility] ([facility]) Outpatient Attender: JOSE Vidal/Abby/Christa calixto 12/01/2020 10:40:00 AM EDT [facility] Outpatient Attender: NIKITA SHAVER [id number] 11/30/2020 07:00:28 PM [facility] Outpatient Attender: NIKITA SHAVER [id number] 11/03/2020 04:55:20 PM [facility] Outpatient Attender: ERICH Rubiotender: Erich Bowie 11/03/2020 12:00:00 AM [facility] Outpatient Attender: JONNATHAN GUPTA [id number] 11/01/2020 03:45:15 P M [facility] Outpatient Attender: JONNATHAN GUPTA [id number] 11/01/2020 03:40:04 P M [facility] Outpatient Attender: Erich Robleroder: ERICH BOWIE [id number] HTRNP 11/01/2020 12:00:00 AM EDT - 11/01/2020 02:56:48 PM EDT [facility] Outpatient Attender: ERICH Robleroder: Erich Bowie Admitter: ERICH BOWIE [id number] 10/19/2020 12:00:00 AM EDT - 10/19/2020 12:00:00 AM ED T lymphandenopathy [facility] lymphandenopathy Patient discharged. Outpatient Attender: Fern COLEeferrer: ERICH BOWIE 10/13/2020 12:00:00 AM EDT [facility] pretest Outpatient Attender: Marlys Moore brenda: MARLYS NOVA PAReferrer: ERICH BOWIE 10/12/2020 12:00:00 AM EDT pretest [facility] pretest Outpatient Attender: Erich OlsenJovanny: ERICH BOWIE [id number] HTRNP 09/23/2020 12:00:00 AM EDT - 09/23/2020 11:37:40 AM EDT TRPPREOP ANNUAL EVAL [facility] TRPPREOP ANNUAL EVAL Outpatient Attender: Conner CAUSEY [facility] 09/14/2020 02:00:00 PM EDT [facility] ([facility]) Office Visit Attender: Rehana Vidal/Abby/Gustabo/ Reindl 09/02/2020 11:30:00 AM EDT [facility] ([facility] Outpatient Attender: LAUREN PRINGLEReferrer: Dave Aguirre Jr [id number] 08/31/2020 12:43:02 PM [facility] Outpatient Attender: Dave Aguirre Jr [id number] 12:00:00 AM EDT - 08/31/2020 01:52:44 PM [facility] Outpatient Attender: MELISSA MONTENEGRO [id number] 08/31/2020 12:00:00 A M [facility] Office Visit Attender: Patricia Vidal/Abby/Gustabo/R eindl 08/18/2020 10:00:00 AM EDT [facility] ([facility] Outpatient Attender: Conner CAUSEY [facility] 07/29/2020 03:40:00 PM EDT [facility] ([facility]) Outpatient Attender: MELISSA MONTENEGRO 07/21/2020 12:00:00 AM [facility] Outpatient Attender: Lisa Ya NP 07/21/2020 12:00: 00 AM [facility] Outpatient Attender: Siddhartha Ingram DO [id number] 07/02/19 12:00:00 AM EDT - 07/01/2020 04:54:47 PM EDT Chronic kidney disease, stage 5 [facility] Chronic kidney disease, stage 5 Outpatient Referrer: JESSIE IQBAL MD 06/01/2020 12:00: 00 AM EDT Mantle cell lymphoma, lymph nodes of head, face, and neck [facility] Mantle cell lymphoma, lymph nodes of hea d, face, and neck Outpatient Attender: Rehana Vidal/Abby/Gustabo/ Reindl 04/29/2020 10:00:00 AM EST [facility] ([facility] Office Visit, Est Pt., Level 3 [address] [place] [address] 04/07/2020 12:00:00 AM EST eCW1 ([facility]) Outpatient Attender: Siddhartha Ingram DO [id number] 04/02/19 12:00:00 AM EST - 04/02/2020 12:31:55 PM EST Mantle cell lymphoma, lymph nodes of hea d, face, and neck [facility] Mantle cell lymphoma, lymph nodes of hea d, face, and neck Outpatient Attender: Siddhartha Ingram DO 03/30/2020 12:00:00 AM [facility] Outpatient Attender: Siddhartha Ingram DO 03/26/2020 12:00:00 AM [facility] Outpatient Attender: Patricia Vidal/Abby/Gustabo/R eindl 03/16/2020 08:15:00 AM EST [facility] ([facility]) Outpatient Attender: Patricia Vidal/Abby/Gustabo/R eindl 03/09/2020 12:30:00 PM EST [facility] ([facility] Outpatient [address] [facility] [place] [place] [id number] 01/01/2020 12:00:00 AM EDT eCW1 ([facility]) ([facility]) [place] [address] [place] [address] 12/18/2019 12:00:00 AM EDT eCW1 ([facility]) Immunizations Vaccine Date Status Description Data Source(s) COVID-19 VACCINE Satya 06/02/2020 12:00:00 AM EDT completed [facility] Vaccine Series Complete: YESThis Data wa s Submitted to [facility] Via [employer]. Medications Medication Brand Name Start Date Product Form Dose Route Admi nistrative Instructions Pharmacy Instructions Status Indications Reaction Description Data Source(s) 5 mg 12/31/2020 12:00:00 AM EDT tablet 90 TAKE ONE TABLET BY MOUTH EVERY DAY FOR CHOLESTEROL TAKE ONE TABLET BY MOUTH EVERY DAY FOR CHOLESTEROL HERMILA [facility] 100 mg 12/31/2020 12:00:00 AM EDT tablet 90 TAKE ONE TABLET BY MOUTH EVERY DAY TAKE ONE TABLET BY MOUTH EVERY DAY SOLD: 12/31/2020 [facility] carvedilol 6.25 MG Oral Tablet CARVEDILOL 12/31/2020 12:00:00 AM EDT tablet 180 TAKE ONE TABLET BY MOUTH TWICE A DAY TAKE ONE TABLET BY MOUT H TWICE A DAY SOLD: 12/31/2020 [facility] POLYETHYLENE GLYCOL 3350 142 MG/ML Oral Solution [Miralax] M iralax 12/01/2020 12:00:00 AM EDT active M EDENT ([facility], ) Magnesium Hydroxide 80 MG/ML Oral Suspension Milk Of Magnesi a 12/01/2020 12:00:00 AM EDT ORAL active M EDENT ([facility], ) Acetaminophen 325 MG Oral Tablet acetaminophen (TYLENO L) tablet 650 mg acetaminophen (TYLENOL) tablet 650 mg 10/19/2020 11:45:00 AM EDT 65 0 mg Oral active 650 mg, Oral, E very 6 hours, First dose on Sun10/19/20 at 1145, For 14 days
Maximum daily dose of acetaminophen is 3,000 mg from all sources in 24 hours.
[facility] Medication administered onsite Oxycodone Hydrochloride 5 MG Oral Tablet oxyCODONE (ROXICODONE) immediate release tablet 5 mg oxyCODONE (ROXICODONE) immediate release tablet 5 mg 10/19/2020 11:40:10 AM EDT 5 mg Oral active 5 mg, Oral, Every 6 hours PRN, Moderate Pain (Pain Scale Score 4-6), For breakthrough pain not controlled by non-narcotic medications, Starting on Sun10/19/20 at 1140, For 8 doses
Oxycodone immediate release is limited to 10 mg per dose. Higher doses ( only) require Pain Service consultation and approval.
[facility] Medication administered onsite fentaNYL (SUBLIMAZE) (PF) injection 12.5 mcg 8176-8386-98 10/19/2020 11:23:51 AM EDT 12.5 ug Intravenous active 12.5 mcg, Intravenous, Every 5 min PRN, Moderate Pain (Pain Scale Score 4-6), Starting on Sun10/19/20 at 1123, For 10 doses, Recovery [facility] Medication administered onsite fentaNYL (SUBLIMAZE) (PF) injection 25 mcg [id number] 10/19/2020 11:23:51 AM EDT 25 ug Intravenous active 25 m cg, Intravenous, Every 5 min PRN, Severe Pain (Pain Scale Score 7-10), Starting on Sun10/19/20 at 1123, For 10 doses, Recovery [facility] Medication administered onsite sodium chloride (preservative free) 0.9 % flush 3 mL [id number] 10/19/2020 08:14:01 AM EDT 3 mL Intravenous active 3 mL, Intravenous, Every 8 hours, First dose on Sun10/19/20 at 0815, For 30 days, Pre-op
Saline Lock. Flush Q8H and after each use to Saline Lock.
[facility] Medication administered onsite sodium chloride (preservative free) 0.9 % flush 3 mL 26505-0 8610/19/2020 08:14:01 AM EDT 3 mL Intravenous active 3 mL, Intravenous, PRN, Line Care, Starting on Sun10/19/20 at 0814, For 30 days, Pre-op
Saline Lock. Flush Q8H and after each use to Saline Lock.
[facility] Medication administered onsite Acetaminophen 325 MG Oral Tablet Acetaminophen 325 MG Oral T ablet 10/19/2020 12:00:00 AM EDT 650 mg Oral active Take 2 tablets by mouth every 6 (six) hours for 10 days [facility] 5 mg 10/18/2020 12:00:00 AM EDT tablet 90 TAKE ONE TABLET BY MOUTH EVERY DAY TAKE ONE TABLET BY MOUTH EVERY DAY SOLD: 10/19/2020 [facility] sodium chloride 0.9 % SOLN 100 mL with iron sucrose 20 MG/ML SOLN 09/17/2020 12:00:00 AM EDT 100 mg aborted 100 mg [facility] Acetaminophen 325 MG / Oxycodone Hydroch loride 5 MG Oral Tablet oxyCODONE- Acetaminophen 5-325 MG Oral Tablet (PERCOCET) oxyCODONE-Acetaminophen 5-325 MG Oral Tablet (PERCOCET) 08/05/2020 12:00:00 AM EDT active TAKE ONE TABLET BY MOUTH THREE TIMES A DAY NEEDED FOR PAIN MAXIMUM DAILY DOSE 3 [facility] Acetaminophen 325 MG / Oxycodone Hydrochloride 5 MG Or al Tablet 5-325 mg OXYCODONE HCL/ACETAMINOPHEN 08/05/2020 12:00:00 AM EDT tablet 12 TAKE ONE TABLET BY MOUTH THREE TIMES A DAY NEEDED FOR PAIN MAXIMUM DAILY DOSE = 3 TAKE ONE TABLET BY MOUTH THREE TIMES A DAY NEEDED FOR PAIN MAXIMUM DAILY DOSE = 3 SOLD: 08/05/2020 [facility] Amlodipine 5 MG Oral Tablet amLODIPine Besylate 5 MG O ral Tablet (NORVASC) amLODIPine Besylate 5 MG Oral Tablet (NORVASC) 07/26/2020 12:00:00 AM EDT 5 mg Oral active Take 5 mg by mouth every morning [facility] Lisinopril 20 MG Oral Tablet Lisinopril 20 MG Oral Tab let (ZESTRIL) Lisinopril 20 MG Oral Tablet (ZESTRIL) 06/30/2020 12:00:00 AM EDT 20 mg Oral active Take 20 mg by mouth every morning [facility] sevelamer carbonate 800 MG Oral Tablet S evelamer Carbonate 800 MG Oral Tablet (Renvela) Sevelamer Carbonate 800 MG Oral Tablet (Renvela) 06/23 12:00:00 AM EDT 2 {tbl} Oral active Take 2 t ablets by mouth Three times daily with meals [facility] 100 mg 06/02/2020 12:00:00 AM EDT tablet 90 TAKE ONE TABLET BY MOUTH EVERY DAY TAKE ONE TABLET BY MOUTH EVERY DAY SOLD: 06/04/2020 [facility] 0.08 gram-1.8 kcal/mL 04/23/2020 12:00:00 AM EST liquid 7 110 USE 1 8 OUNCE CAN BY MOUTH DAILY AT LUNCH TIME USE 1 8 OUNCE CAN BY MOUTH DAILY AT LUNCH TIME SOLD: 04/23/2020 [facility] 667 mg 04/22/2020 12:00:00 AM EST capsule 510 TAKE TWO CAPSULES BY MOUTH THREE TIMES A DAY WITH MEALS TAKE TWO CAPSULES BY MOUTH THREE TIMES A DAY WITH MEALS SOLD: 04/23/2020 [facility] 20 mg 04/15/2020 12:00:00 AM EST tablet 90 TAKE ONE TABLET BY MOUTH EVERY MORNING TAKE ONE TABLET BY MOUTH EVERY MORNING SOLD: 04/15/2020 [facility] carvedilol 6.25 MG Oral Tablet CARVEDILOL 04/15/2020 12:00:00 AM EST tablet 180 TAKE ONE TABLET BY MOUTH TWICE A DAY TAKE ONE TABLET BY MOUT H TWICE A DAY SOLD: 04/15/2020 [facility] Lisinopril 10 MG Oral Tablet Lisinopril 10 MG Oral Tab let (ZESTRIL) Lisinopril 10 MG Oral Tablet (ZESTRIL) 03/26/2020 12:00:00 AM EST 10 mg Oral active Take 10 mg by mouth every morning [facility] 10 mg 03/26/2020 12:00:00 AM EST tablet 30 TAKE ONE TABLET BY MOUTH EVERY MORNING TAKE ONE TABLET BY MOUTH EVERY MORNING SOLD: 03/27/2020 [facility] 8.4 gram 03/08/2020 12:00:00 AM EST powder in packet 10 TAKE 1 PACKET MIXED WITH WATER THREE TIMES A WEEK Sunday AND SUNDAY TAKE 1 PACKET MIXED WITH WATER THREE TIMES A WEEK Sunday AND SUNDAY SOLD: 03/08/2020 [facility] 8.4 gram 12/29/2019 12:00:00 AM EDT powder in packet 30 DISSLOVE 1 PACKET IN WATER AND DRINK ONCE DAILY DISSLOVE 1 PACKET IN WATER AND DRINK ONCE DAILY SOLD: 12/29/2019 [facility] 50 mcg 12/21/2019 12:00:00 AM EDT tablet 90 TAKE ONE TABLET BY MOUTH EVERY MORNING TAKE ONE TABLET BY MOUTH EVERY MORNING SOLD: 12/22/2019 [facility] 1,250 mcg (50,000 unit) 12/21/2019 12:00:00 AM EDT capsule 8 TAKE 1 CAPSULE BY MOUTH EVERY WEEK TAKE 1 CAPSULE BY MOUTH EVERY WEEK SOLD: 12/22/2019 [facility] 15-20 gram/60 mL 12/12/2019 12:00:00 AM EDT suspension 120 TAKE 60 ML BY MOUTH TODAY AND SUNDAY TAKE 60 ML BY MOUTH AND SUNDAY SOLD: 12/12/2019 [facility] carvedilol 6.25 MG Oral Tablet Carvedilol 6.25 MG Oral Tablet (COREG) Carvedilol 6.25 MG Oral Tablet (COREG) 12/12/2019 12:00:00 AM EDT 6.25 mg Oral active Take 6.25 mg by mouth Two Times Daily [facility] Insurance Providers Payer name Policy type / Coverage type Policy ID Covered green party ID Covered green party's relationship to eastman Policy [place] Plan Information [employer]OMCO [id number] WI2 [id number] UMR [facility] [id number] WI2 [id number] [employer] U [id number] Spouse [id number] POM[employer] U [id number] Spouse [id number] POM[employer] [id number] WI2 [id number] [facility] Workers Compensation [id number] Self UMR U [id number] Spouse [id number] OTHER B TRANSPLANT Self TRANSPLAN T UMR U [id number] Spouse [id number] UMR U [id number] Spouse [id number] UMR [facility] [id number] WI2 [id number] UMR U [id number] Spouse [id number] UMR U [id number] Spouse [id number] [facility]MR [facility] [id number] WI2 [id number] UMR [facility] [id number] WI2 [id number] MEDICARE A [id number] Self [id number] UMR [facility] [id number] WI2 [id number] MEDICARE A [id number] Self [id number] ESRD PROGRAM [id number] SP [id number] UMR O [id number] S [id number] UMR [facility] [id number] WI2 [id number] UMR [facility] [id number] WI2 [id number] COMMERCIAL GENERIC U [id number] Self Y [id number] [facility] [id number] SP [id number] [facility] [id number] WI2 [id number] [facility] [id number] SP [id number] [employer] [id number] Family Dependent [id number] [employer] PPO O [id number] P [id number] [facility] [id number] WI2 [id number] [employer] [id number] Family Dependent [id number] [employer] [id number] Family Dependent [id number] [employer] [id number] WI2 [id number] [employer] [id number] Family Dependent MEDICARE [id number] SP [id number] [id number] [employer] (HMO) [id number] Family Dependent [id number] Problems, Conditions, and Diagnoses Code Display Name Description Problem Type Effective Dates Data Source(s) lymphandenopathy lymphandenopathy Diagnosis 10/19/2020 07 :43:00 AM [facility] pretest pretest Diagnosis 10/12/2020 12:00:00 AM [facility] TRPPREOP ANNUAL EVAL TRPPREOP ANNUAL EVAL Diagnosis 09/23/2020 10:56:49 AM [facility] D22.62 [id number] Melanocytic nevi of left upper l imb, including shoulder Problem 04/07/2020 12:00:00 AM EST eCW1 ([facility]) D22.71 [id number] Melanocytic nevi of right lower limb, inc luding hip Problem 04/07/2020 12:00:00 AM EST eCW1 ([facility]) D22.72 [id number] Melanocytic nevi of left lower l imb, including hip Problem 04/07/2020 12:00:00 AM EST eCW1 ([facility]) L82.1 [id number] SK (seborrheic keratosis) Problem 04/07/2020 12:00:00 AM EST eCW1 ([facility]) D22.5 [id number] Melanocytic nevi of trunk Problem 04/07/2020 12:00:00 AM EST [facility] ([facility]) D22.61 [id number] Melanocytic nevi of right upper limb, including shoulder Problem 04/07/2020 12:00:00 AM EST eCW1 ([facility]) Z85.828 [id number] History of nonmelanoma skin cancer Proble 04/07/2020 12:00:00 AM EST eCW1 ([facility]) D18.01 [id number] [place] angioma Problem 04/07/2020 12:00:00 A M EST [facility] ([facility]) C44.41 [id number] Basal cell carcinoma (BCC) of scalp Probl em 03/07/2020 12:00:00 AM EST eCW ([facility]) Surgeries/Procedures Procedure Description Date Indications Data Source(s) OFFICE OUTPATIENT NEW 30 MINUTES 12/01/2020 12:00:00 A M EDT MEDALYSSA ([facility], ) ECHO TTHRC R-T 2D W/WOM-MODE COMPL SPEC&COLR DOP 11/16 12:00:00 AM EDT MEDALYSSA ([facility]) MYOCRD IMAGE PET PERFUS MULTPL STUDY REST/STRESS 11/15 12:00:00 AM EDT MEDENT ([facility]) CV STRS TST XERS&/OR RX CONT ECG I&R ONLY 11/15/2020 1 2:00:00 AM EDT [facility] BX/SURG TISSUE CULTURE 1 <td>BX/SURG TISSUE CULTURE 1</td><td>Routine</td><td>10/19/2020 10:57 AM EDT</td><td></td><td></td> 10/19/2020 10:57:00 AM [facility] BASIC METABOLIC PANEL CALCIUM TOTAL <td>POCT ISTAT FABRIZIO OUS CG8</td><td>Routine</td><td>10/19/2020 8:44 AM EDT</td><td></td><td> </td> 10/19/2020 08:44:00 AM [facility] POCT ID NOW COVID-19 <td>POCT ID NOW COVID-19</td ><td>Routine</td><td>10/19/2020 8:06 AM EDT</td><td></td><td> </td> 10/19/2020 08:06:00 AM [facility] OFFICE OUTPATIENT VISIT 25 MINUTES 09/14/2020 12:00:00 AM EDT [facility] Av Fistula Artery-Vein 08/05/2020 12:00:00 AM EDT MEDENT ([facility], ) Electrocardiogram Complete 07/29/2020 12:00:00 AM EDT [facility] ([facility]) OFFICE OUTPATIENT NEW 30 MINUTES 07/29/2020 12:00:00 A M EDT [facility] ([facility]) OFFICE OUTPATIENT VISIT 15 MINUTES 04/29/2020 12:00:00 AM EST MEDENT ([facility], ) OFFICE OUTPATIENT VISIT 25 MINUTES 03/16/2020 12:00:00 AM EST MEDENT ([facility], ) Insertion Of Tunneled Centrally Inserted Central Venous Cath eter 03/09/2020 12:00:00 AM EST MEDENT ([facility], ) Ultrasound Guidance For Vascular Access Requiring Ultrasound Eval 03/09/2020 12:00:00 AM EST MEDENT ([facility], ) OFFICE OUTPATIENT VISIT 25 MINUTES 03/09/2020 12:00:00 AM EST MED[facility] ([facility], ) Results ID Date Data Source [id number] 01/06/2021 09:05:00 AM EDT [facility] Name Value Range Interpretation Code Description Data Molly rce(s) Supporting Document(s) SARS-CoV-2 (COVID-19) RNA [Presence] in Respiratory specimen by LUCI with probe detection Not Detected [facility] This lab was ordered by [facility] and reported by [employer]. ID Date Data Source [id number] 12/30/2020 04:16:52 PM EDT [facility] Name Value Range Interpretation Code Description Data Molly rce(s) Supporting Document(s) Progress Note [facility] VELVFj0iIqMUMgQt88/KQUzlOGQea4KjGSzbJPb4OPifYZVyH7NhSPS0hC4aKYN4RLaAYmBhJoTjUCQ1 lbm WbQwhLPeGsKYRiDruIWgWuQObtZqaqaRZfGZ3EaWL8QJGbI25qGFNmAAPoY0RwTTHdEhG+Xh1UYNNpbE JhKA7IVomBaGvnw4m0Ee++fL6LN1ou1K5xreK8PvvMTfw7ffVtHrbXQqG2uEn7xp4LtdSl6b96+3jINh P360N3pkKPVqmxlUnqECZAX/+BURQQQkD+lh6oaSYq wl//JohijE0PhH4Fw3twBPbNzG/+N7neVSPNo+U3LWGIjOxAnQqM4RRGcfgA157E6Sh6UIRaYKULp3 [file] ICAgICAgICAgICAgICAgICAgICAgICAgICAgICAgICAgICAgICAgICAgICAgICAgICAgICAgICAgICAg JGFyWHWaBGLjUVUeKZFhBDMjFBHlLGIuLE3HUAZqAMLrOYKbVMXpQJZaAKQyHTQeZHDtPUBtYCWsXMBc ICAgICAgICAgICAgICAgICAgICAgICAgICAgICAgIC GqFWBuAQStYMFpGRPdHXYtLPZqLEIrFDAtYHNnQZKcZWHpFL0YCLZpBYWxFIXgEHLuKUIfHVFiUXZlEN AgICAgICAgICAgICAgICAgICAgICAgICAgICAgICAgICAgICAgICAgICAgICAgICAgICAgICAgICAgIC MiSCAbZOPkHLAsYRWrRCIhQU4DDJPcVDItXVPlAHVw ICAgICAgICAgICAgICAgICAgICAgICAgICAgICAgICAgICAgICAgICAgICAgICAgICAgICAgICAgICAg SPNkQYQyOUVeDXQfCKDvCXBeSMFwQWBbQSTkYK1LMYEfCIFoOBVuXRYsJAFxUWQcDSEoYUWmHMKjSEXg ICAgICAgICAgICAgICAgICAgICAgICAgICAgICAgIC HnDATnPGJrJIViJIQfJCCmTRLlBAQsNQXxHHCoLDPpCJXnOYAnNF2QOVBkFTSxQEPtLVEwEOXsDDKkZX AgICAgICAgICAgICAgICAgICAgICAgICAgICAgICAgICAgICAgICAgICAgICAgICAgICAgICAgICAgIC QzSDLePLWaRZBbYFJjGBAgYBLaNK1KSXRwPJRqOWFy ICAgICAgICAgICAgICAgICAgICAgICAgICAgICAgICAgICAgICAgICAgICAgICAgICAgICAgICAgICAg MHSfRNGtNBRrUWZyEQDgUQOqAJMeJNTbPXRkAODpNM9AWAQlLYXaUVRlDLPdURKxVIHtABJxCGMoIDNp ICAgICAgICAgICAgICAgICAgICAgICAgICAgICAgIC ZeEFQdJJZrRYGrMBHpXQJtXQLuMJZnNMBfVMQzGGEkMDZnGBBhFKKsXS1CRCEgNFQvIZWlUTMfNUVeKW AgICAgICAgICAgICAgICAgICAgICAgICAgICAgICAgICAgICAgICAgICAgICAgICAgICAgICAgICAgIC NyGKYoXVDjAGVvNRUzEBBrTRFpFIBmPU9GSTCoXJVg ICAgICAgICAgICAgICAgICAgICAgICAgICAgICAgICAgICAgICAgICAgICAgICAgICAgICAgICAgICAg MAHzLSAuVFJwJFOuCOLbQBKaEJUuUDPtETXnOXEgJCIiBH0TRY50zZGbe3B0MJMzCR2bfpr/Zw7OBKaz lrJtaRWaJI6CNdGcPH5rjs4CSzEfKT4zkw0YUWgKGq BpQ4L3kGTaPVItGUFUShJxN26aCFquDf73SHfhWHAuTdYdDIv9Ni5NXjGsI4nxMXAqYmN0XJUtOlI0GV YoCbXaMUUgGZLwVITfRGYWOZN7EWYdZfVxLiHnUMQxFAdpTRQITGPaPVGsEzHvJwYkZDBbJcQlQSCDUZ N0OLQyDlXkSUTiWWPhOzUfVKYVOJ0ZWsXpN1VjfK95 IDEzDQo+Rx4QNA8ie6XnTAg4HmTkXZ1mve1HJAfQDpHpF5OznwM9ZXA3SMZrLt0SOYEaFZIebYZ0XYWn YAQCCvAqH3DnvQ70ZKPZHb3+OBvkisZaHahDShL9FHFrw2MeTYf4GP7HZJSeTXu0zJEiFZEdO8Zxy7Yn Nm51FRCsLbfzFeRqqPetA7W5xIjrKS1dLYIuNNDuOy bgHqWgBYMfLzfwWVOFIWlLDlKlV5Eqi4WaDcJ3PVUaLyZwDLtzVGOpMuJ8VM68xWrcAP6TXARqDCPrFL 77KAG6ERWpOl6WBo8DIxNrWW5egg6NRdGrFA6fbb1AWAuHIjBhQ8Q7tMSoL5Tvpz42IU2KcYO7jAUiFZ 1NsO4hIV5Ke6PzPEJsGmMwCOUiVJClRDKbUMKtMxDb QK7CXQCbPrObmQUgBUMyOuF8DIAtCoDrJLTmID2GSQTjUTP6IP6QZD2FDuviP8KJMXehxEonTaEAGPD/ GOREHBIMBUopCENuQ15JA5ZALOjNAonrRXpCNufrWw0sLGh+Oc3XFI9qq0ZnNEw0MUWeOX5gwj8ZMYzB BbSsS4G1cHGhM2T0RMqlSa4GEDJzUCSzLbZgZRRXTU biRA6HSK2hsjR8HS9IwIAnDGWeQERbcGCrSJb4W07fjYQsPDfoAS1ILVK+Sneha+Av9DJIOdWRIoMKOfMd WcIKRBJlZaQ4LlY2HXe3WjZ0ItRI32zHfpbiEvVKcnIW6API9xQFScTETUNP7HhGQhpP0eziN1ZeZhYT VNDyExR69nePRtLWOpEYQ4LSKiYi6DACIyX7IarjGf nUmqzlQtYJPnWMWIYH9FKPouikOfhRBjfCfyIR68cWdjFY9PKm4AWzGjNM5fvr3CgBBrIs0LEQU1NQ0N UVMsYSEuDFAkKCP3YURbEvJlTCjvIIGcJVBvAJG8FDTvCICuZQ6FNcIuBROwHgU2OlTsPXXjAWFyhk4X POPcFEC4GyC7XGUrOTCtKIBiRUtrYWYcADSoIHB0JC VhRPRnAF6GXdZaCNHrXNM5BZtaNPBkSPAbab0CHUIxFEN9Rhg7TZQsWCIiWVGuVRgxCHVzAIHzEny9JL ZoZBEbAI7PShRsYFXbXDC9RZMuRIBtFMCccx3XXJHtPWKiYQw4HNSiMKSwMVDhIZifISLcJRC5SER5ZZ MwISSgXS4LUvXcDLScNRgpLrNtIXLcWWYkge8TQVCp ZBAcPSL5FOCzOVNsKPKnDKxhICLrSDVuZTp7OSUcBTFwPH5RMuWcLEPgYFG0BfUrTOCgSAQqre9MSAXf YVPtVKYwXGLsMTUnFPEhDJrvZOLfWSA9KIZ0ILAbZZBdRL1DYbQtPDSqRBV6UpOyVNNxMLZnpt8ABNOh FSBzVOI1CTVlBQOcXYWpQRqbMEFpHGY0FmQ5UFQeCY UqYA9CIeQtCCPaHgAwOHTcYFZeWFSpxh8UVQBlOYXgUtJ5QGElVCNcMPCiKRwaFGVuMLK8Ija8DSKyUS CxOQ9GPcZjCEXwClF8PHGiCWTlYOPski4OHJEhUCVfIJT2EHNySCBvPCYfYMhkUELaLCN4RwY8OGDcWL DxQC4HKsRyYQFuIhH1QTVcWARyCDZnrt1RWXZjDLTw LTycLqYmZMVkHRGbACdxNDQwVOT9LqS0AZGnTVDqKC3JAzRkPESkYlI8WCNyNFXiMESoio0ZUXQzIUMk JaR7HkEeWZVkUISrUOezQNKzQAI0JxS0GJEoRCYjNB2GObVeYPYlIpm7PLywGTUcAHRjmx5HDYGaABNu PyxsJzZiPLSbGMIjOTmuEQGoAMW3GSm8XYXbIIXvXB 4KBaFtFNKeXgq3JKhpJPWsDQPojb0RIPWuCQQuEOA1YXGoHRLiAVRtCBeaPOTuQIR9YoI3LNTpDLQdFM 7PWqXoMNZyIRQ4CslsKFUoTTOjyz8MBZAsALV0VMXwIkGmZYQuHDQbMUouUYRbSZQnPzQnQJZnFSKsSL 9VXhZuSNTlUIF8NgGcTYCoOMYelg5YXOAlMVW2BNaq SHClUECcKNReDTjfICSzJYUnFhYsCTLlIALnDD2YEpOhLTXiCXQ7YGHwYIKuUGZvjg4XVBUwJIH0TfHm THMvDGEdSYIcPPnqFFDlFMRfDVZiNRTkYRIiXM2IGzLdQLHoISQrPXwzEVCfLEEnug2LDOPsECD9QHYg OXEiIVHtUYWyYAvxFHAbWIQ7PzI4GPTlEHPuBY8KBv UwMSVjIZF2XNQsMRXrFLDgct2RWKMsBCI0AKCmDARhRRKmBFRcIFdjJIYlKER6TGm9RWExVGMhKL1XFt GxGTFcPRS3FvWmYNSgHKEvhi9HKCJkORD1FtbiWRIeEHOvZSEsPEqdKNZpFGNhRhzkDTRxWYJaKZ2PXb EfTCZpEnIpIZObHSWqGXRxqv2WAMFuGTF7ClLpRYBp EWEaSZRrYOxpBJPfJAGrFGx4QNEjYIFtNZ8ZRzTnKPJeYrA8NcBsQQDyIOBxno9HOVCmAFU1WshwQMOz JXYdGGEsQJodUGJkRUYeLRm2OQFoIHBdLP6FDxKoCHWwSsXkDlWbOGQnNBQvau8DVRSoAMN4JVE8YkAk CADeCLYmBYffVEDpLQT7RUS0QNLiSQZzCE8ZUaEvWL CfObO2HDOyHIRiGLDmka3LGVScFFC7UXK2IFZjAKHcBZRjUGfnOOYfCGE9Hqx8HUQuKVDmGS1KNpKfYC FbEqR8GWifDRYxJTNxrx7OZZAtOFT1DfH9HNIeAUClCJXbAKt4zqAhgLIjHEn0XA9SY4KdjtBqAwZHZv 4Kz791JER7BRJxUw9HU2wiEr3wVXHcRFJFXr9TEDp0 ZyA4PBAmYEFoDRk7YQAbHgMkLzG6DbcrHvZ7UPClKzT+CWovMnCuTiE9SBWyPfqyOSK6BzMrJbOmKVZa LYt2JTG6LK1hCSEXLp7+QCwxhGForSptPKFJXfQ9DfN9KTtqEBRSPd2B ID Date Data Source [id number] 11/30/2020 07:00:28 PM EDT [facility] Name Value Range Interpretation Code Description Data Molly rce(s) Supporting Document(s) Progress Note [facility] IBPBAr2oVxHZErQk43/KBUrkTAPrk3TyFUhoKVh6EAzzCUEmB2NkANY9lL0ySFO2PLkVCfTsNmYvETH1 lbm [file] JldxX3dcUaIAlxIRX9BA9XCPBSE1SUJe== ID Date Data Source [id number] 11/05/2020 12:54:40 PM EDT [facility] Name Value Range Interpretation Code Description Data Molly rce(s) Supporting Document(s) Progress Note [facility] BVCKVz4gQiIPHoCv72/HVJhuPEUwy3PeURifQFt9HJakZYAzF4DyZZP2jF6oJKW5BHqZUsPvLxNeAFZp lbm [file] ID Date Data Source [id number] 11/05/2020 11:58:29 AM EDT [facility] Name Value Range Interpretation Code Description Data Molly rce(s) Supporting Document(s) Progress Note [facility] WFUGXw2dPzNIBtHh35/AQHorQFEee5KrABdlWBb0OComPRRzD2OdVXJ5nM4lIOX7BJxTEmHeKgDnEETv lbm JnTcdQMvJpTQBnHedXSnRbWUgxCjsddPHcTL1CgEU4CAZrN07hZOGyVOWlH3KsJHJ1DHQ+Qn3LDJAacZ EfQY9BUykF8Ue2p7v3Bg9/gK1PDtap8tZagJnDQLO7PH6GViVXnzN3OLftR90rLW3wY1XYuufiqC60rB IBjzantHLQgQNGSchtXQ1xd+eVFFtCqv9+MH1RN3QD ij/LryphZDQjf/aBODe5Nl9etauEgCHa2wKoVyXlQL1/4O2A7L+WpJJQZbiptsC3CKGxdZMLwT9lFH/m 9FuoRWcGj5dGjqWn2AJfkMDcbi6knthZc2ntzHjiiMKJAsLo74woQQCZbNVo+TK5QVqIaIElkw6MDKzJ RqwzZ9btayKpmD1tFPL3kBmdQJ9ijRAlEE7Ar1YNvD 9292ROK3axuiwIeKT0HTounqk/ebffPYmN1PhqPWj1d9EWCtpDlNBLIw3PQe4HlYOFc9ShS9uYV9YVPJ x2EvktXD3d1AD4P+B2nr0OAu+spvosKMk1LebuK3meJ/5cEEsFfWWr6sWhGBLBPllIyHy77X46/zacKp s7NUqkeF4eF8czhfvISwyPxhYJD7AOF4ja5BS2ACtR OFeYce27UBzt5DnXldvyinkcN9J1/vHwvE/OTk5P++W0K9Z66Ek2DESi336lojrmJcJVAqRJKS3rUuwS OfIbPRAerXhy3nQotKWLheERpwlcMG/XvOQjrlyvyZdOXrmS99inwpjohrcwUyiayyaeUzFEmU2A0HsK F+WclMNpOYxlNaqiwfRJvsnKhaWqRgTMnYDRvCLDWD [file] VsBFWiP8B5Jql4OnVhAQ3OSx8MVcX1OAQ3bIHiVi7NYuv8PloRFlRvUB3XHXk= ID Date Data Source [id number] 11/03/2020 04:55:20 PM EDT [facility] Name Value Range Interpretation Code Description Data Molly rce(s) Supporting Document(s) Progress Note [facility] WOFUOq6kUvZAZcAv95/BUGnxULQku6PxQScyZVq4TKbdYPXqS0NvANT7wY7dGBN0JTxTMqOfCvJhUNVe lbm [file] 9GDQo= ID Date Data Source [id number] 11/03/2020 10:57:08 AM EDT [facility] Name Value Range Interpretation Code Description Data Molly rce(s) Supporting Document(s) Progress Note [facility] SRLOLn3vNjYZRpBy68/CMYwsKQLfg0YbFAunHCb9PBixMNHpT0JeUAN6rI0oDVQ7DFdYGhMlWrGnKDAl lbm [file] YMfFE+jsuIMMkss02NyVWn+Tj6Xur+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/tzYcsWakz [file] 6cUsM5bZ4siNyfytirs+castañeda+S/wF/of6pCQ6oZMkySkHnQinGop3zzNkxAQ+hlVKVOga/fTbN5X/D14fX [file] X0TdTeRL7EHc6XBtZ2RKS2bVThRx5GQkW2LyWVFhOvTH7KLHk= ID Date Data Source [id number] 11/01/2020 03:45:15 PM EDT [facility] Name Value Range Interpretation Code Description Data Molly rce(s) Supporting Document(s) Progress Note [facility] BBKMRu1gWoMNEgYj24/PSZnxFPNqc1KwYVxlEVj5ZYlzUSXfW9SjARB5tM0qODO4YLyFQiJvNqVuWKPh lbm [file] a4JROjHBzmDER1JtDgQP4ETi9TXuI2FRW3aKOjTk2ZOcE1VAfWLaPoJM0QPPl= ID Date Data Source [id number] 11/01/2020 03:40:04 PM EDT [facility] Name Value Range Interpretation Code Description Data Molly rce(s) Supporting Document(s) Progress Note [facility] COVQSb1tWgDOZtPb28/ZBUvqMUDpv8AuARfjHOg5MRpqVDKiZ9VaFTM9zU5vIID3QOrRRcWnQbLmJOFg lbm [file] Luis Fernando/x24is9ycxNsoK2a7AxR+uxnn+A4xeKbv2l906PS [file] XSANCj4+JQvxmZCftHijNRBFQlQ5VGvbVBerNPNDRq6O ID Date Data Source [id number] 10/19/2020 02:52:03 PM EDT [facility] Name Value Range Interpretation Code Description Data Molly rce(s) Supporting Document(s) Operative Note [facility] TCVGWi8uEdKMEfOy20/MDQmzSUSga9ByZItaCAn2ESsuUAKhW5HcCIS8dB7eYKP2UJpDQjYlWaYlLZV7 lbm [file] ID Date Data Source [id number] 10/22/2020 01:00:08 PM EDT [facility] Service Cmnt XXX-Imp : 1LEFT INGUINAL LY MPH NODEGram Stn XXX : 4+WBC'S Seen.No organisms seenMicroorganism XXX Cult : No growth 3 days Name Value Range Interpretation Code Description Data Molly rce(s) Supporting Document(s) ID Date Data Source [id number] 10/19/2020 09:52:12 AM EDT [facility] Name Value Range Interpretation Code Description Data Molly rce(s) Supporting Document(s) History and Physical [facility] XRYWXd4xJyMFBfHc74/BSLbuTEWvw3RtGBwuUBq7FCpdYWLwY8PbPPM6fN4xVSN9TFtGDtGhShYbNMD6 lbm [file] ogICAgICAgICAgICAgICAgICAgICAgICAgICAgICAgICAgICAgICAgICAgICAgICAgICAgICAgICAgIC AgICAgICAgICAgICAgICAgICAgICAgICAgICAgICAgICAgICAgICAgDQogICAgICAgICAgICAgICAgIC AgICAgICAgICAgICAgICAgICAgICAgICAgICAgICAg ICAgICAgICAgICAgICAgICAgICAgICAgICAgICAgICAgICAgICAgICAgICAgICAgICAgDQogICAgICAg ICAgICAgICAgICAgICAgICAgICAgICAgICAgICAgICAgICAgICAgICAgICAgICAgICAgICAgICAgICAg ICAgICAgICAgICAgICAgICAgICAgICAgICAgICAgIC AgDQogICAgICAgICAgICAgICAgICAgICAgICAgICAgICAgICAgICAgICAgICAgICAgICAgICAgICAgIC AgICAgICAgICAgICAgICAgICAgICAgICAgICAgICAgICAgICAgICAgICAgDQogICAgICAgICAgICAgIC AgICAgICAgICAgICAgICAgICAgICAgICAgICAgICAg ICAgICAgICAgICAgICAgICAgICAgICAgICAgICAgICAgICAgICAgICAgICAgICAgICAgICAgDQogICAg ICAgICAgICAgICAgICAgICAgICAgICAgICAgICAgICAgICAgICAgICAgICAgICAgICAgICAgICAgICAg ICAgICAgICAgICAgICAgICAgICAgICAgICAgICAgIC AgICAgDQogICAgICAgICAgICAgICAgICAgICAgICAgICAgICAgICAgICAgICAgICAgICAgICAgICAgIC AgICAgICAgICAgICAgICAgICAgICAgICAgICAgICAgICAgICAgICAgICAgICAgDQogICAgICAgICAgIC AgICAgICAgICAgICAgICAgICAgICAgICAgICAgICAg ICAgICAgICAgICAgICAgICAgICAgICAgICAgICAgICAgICAgICAgICAgICAgICAgICAgICAgICAgDQog ICAgICAgICAgICAgICAgICAgICAgICAgICAgICAgICAgICAgICAgICAgICAgICAgICAgICAgICAgICAg ICAgICAgICAgICAgICAgICAgICAgICAgICAgICAgIC AgICAgICAgDQogICAgICAgICAgICAgICAgICAgICAgICAgICAgICAgICAgICAgICAgICAgICAgICAgIC IcZHTnXAQoIJOzFBRvPWFtAQSmCFToDXTmSBMjBSMfCMFmPTIwPXAvNXIpAPFlESIuSHf1H1xrFECqRU CrDU3hVUh6Bm4+UWpSMuCjVEO3mgFklQ3ELR1lp9Ov JYxlEPRko3KgGSu0KU8UTMUqTRfhHR4JHCewut1MGPUbHJJjxAEZm4eyPzIpQKV4ZLWpCrzaZQ4PXPJa I6ssqvLyTIEvQUJTRGwcBVBSYPdoSEONJTAgMHEkGeMcLkLxBIFbQKSnDXDBVM1MPkOqP2JqaQ98BICF Cj4+YMgfsbYbNhrBIuA5HZIvq6LeJDi7EE9QCEYiCb bjp6VgJcTnCCKFHWvhEJ7FVTF1LXV8JORpGd9HSTBrB635spWjTE9RNy3YHuDePS8wzq6LHaVfUDVjYp wRHum7GCgmIW2HxELqORySAeXwIinkN7dzes4oWOKiPH2vewhfqMxdLFXxGEAqWR3lUo4lFYWnGYP7Ub I6OYYMKW1WTRLoPUXlzDJdENPeYDMSUU2UYGyfRDB3 JGFnfrGphQXqVOdeYZ4JLCBsxiArHpIgOQVTPQb+Pz7QAL4bq1FlSUyyKxTaRR1fhn0SMIyDXsQyI8B8 jXXuL4Y1FQadFa4CPBGiDGEeAfFlVPINYZycPI9SGV4nbkS5TJ5QnYCcYEKlTOQhoUOfWNx1Z86hsMVo HUliCL7PFTM+Sneha+Os6AYHHgYVZyOPXwIxRgSSFVUj ZfN1SuJ3UEc8IpC4FuAQ13mVqqkrKlMToeLN6ELB7fTACqLHFCNF2RmEYkcP7bsrJjRQFdYAUQMbWmK1 9ldAJiSWSxWNQ4PJAcKf3UIIVwW2HrckCihJbwqrYcFLCbUDXIIV4TADvqelXvuYYwfJajZB25oXbdQE 8TZm8QPcZeQV1zfe4CkWBiZf6GYYQbDD4UVJWqHKYg NCXvGXO7JBLuLjKqNAytMXZhJDOfCTU6SWCbITIjCS4YVjJiGXYfTsPqLkCdQHFnAQNsig7YZIVrMXDp Hrn1SiGaFTTbCTKfOVnsCCDyMKZeTKC8VIBwWDXmZL3THjIdHCIvNQBdVDFfJZAuHBNqbr4UFFNqRJNp RbZ0YVHgYWAgGOHoYAhlUHSgHBO3TDu8GOJdPXRsPG 7XRuTcDHTjTYd4HNCmYYHqLKGjrf3KFZFiKRXaLQH3WmBiKWJyXGZrWSleMVHfSUMsEvv5VGKeNWQaTM 6MIzOjIHXfNNOlGRrzYAWoJHEycq8FKBTrJANhJjAxOwStEVWuXSAtTHzeJAFuNGL1YoK7MTOuGFVnKI 0QWxTySOTuTFW5CYXoAURjAHNrnw8OWSXiPRPpISL2 NkTcLNDhPGUsCSfmXXIbKZE6MBE6NAPfASAdGO9CHjLiXVCaOYe7RkhaTJJzDKFupc6CNSAfTPGtXFQi CZHuVXMmOZHoCDkzVGBhLAM8OJS1HVHxSUFzXZ4RLwEhZPXkNdJ1VmunPANcFWPzgp1IROAyEEDuOGa3 VHEtGMZnSIMbNMerUMMfEMDzYAU9PKMjGTWcDB5NKm JmNXJaDgMhKWehRDRiIJEdoe2NHOKiWMXxEbRaVLQrHSYcLSVxZFxeENQtIRVxEGi1NJTjFVSjSX5QWj EcYYDdKnX6UCPcKTYqSKHtye0QSWBqXNPcSWXdDSRrIXKnIRNuWAtzBUWqCGH8SUW8CSRaORFyWB7VWq CeLXOxLmF5YXjdQWIjYXTfnr9OBAMeZICoBMq3WKFq AGNkZBCvSAvnOYMbCBV3QwB9LOCcOIRvUZ4RHeZkQOZmCoY9YwXwQHFwVUMemn9NPVOaAHVyTrQyTLOr PPGvGGEwRRweSRYjOFG7LJX3WYOyQVOqYI2GSgDaDKQaDwdtMWwdHPNuWWBezv4NGTHbRPBoJLM1HAOs DBByOHAtIUadDCQuOOU6ZdQ2GBUqCIZfVJ7WVhJzKO ggVMNZCzu4ETxsZ4q6VSJxJT2ON2Ffi9AjNkyfMMWHWEzzWX5nzeIpVHSrJb6EX7eTUdp0UGNgMGqeKH KdHHL8VEKvUgtrHBPlRShuBJH8WWBiAR7iVXJeICH1R0S3BXAhALRuGeQzB5ExRkN2OOXtFKD3RRT5Lu EvDR7PTy0RPuE3MIN8fSKvSe5BJiw4KtOLBmKlTS4PVTd= ID Date Data Source [id number] 10/19/2020 08:52:32 AM EDT [facility] Name Value Range Interpretation Code Description Data Molly rce(s) Supporting Document(s) pH of Venous blood 7.44 7.36-7.41 [facility] Carbon dioxide [Partial pressure] in Venous blood 45 mmHg 40-45 [facility] Oxygen [Partial pressure] in Venous blood 41 mmHg [facility] Base excess standard in Venous blood by calculation 5 mmol/L [facility] Oxygen saturation Calculated from oxygen partial pressure in Venous blood 78 % 60-85 [facility] Bicarbonate [Moles/volume] in Venous blood 32 mmol/L [facility] Sodium [Moles/volume] in Blood 140 mmol/L 136-145 [facility] Potassium [Moles/volume] in Blood 4.1 mmol/L 3.4-5.1 [facility] Calcium.ionized [Moles/volume] in Blood 1.18 mmol/L 1.13-1.32 [facility] Glucose [Mass/volume] in Blood 106 mg/dL 70-140 [facility] Hematocrit [Volume Fraction] of Blood 35 % 41-53 [facility] Hemoglobin [Mass/volume] in Blood by calculation 11.9 g/dL 13.5-18.0 [facility] ID Date Data Source [id number] 10/19/2020 08:06:00 AM EDT [facility] Name Value Range Interpretation Code Description Data Molly rce(s) Supporting Document(s) SARS coronavirus 2 RdRp gene https://www.fda.gov/media/027813/enriqueta [email or web address] This lab was ordered by [facility] and reported by [facility]. ID Date Data Source [id number] 10/19/2020 08:18:36 AM [facility] Name Value Range Interpretation Code Description Data Molly rce(s) Supporting Document(s) SARS coronavirus 2 RdRp gene Negative [facility] Test performed using the [employer] ID NOW C OVID-19 assay. This test is only for use under the Food and Drug Administration's Emergency Use Authorization. 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 [facility] Patient has symptoms related to [facility] When did you start to experience these symptoms [Date and time] [Phen X] [facility] Patient was hospitalized because of this condition [facility] patient was admitted to ICU for condition [facility] Patient resides in a congregate care setting [facility] status [facility] ID Date Data Source [id number] 09/23/2020 11:58:01 AM EDT [facility] Name Value Range Interpretation Code Description Data Molly rce(s) Supporting Document(s) Progress Note [facility] PXEQIr1iFuSDKqDp25/HJLvkLXMtf6KqGFneFEi7HZgvOJSuN7YlWTI4gU9sFAE4MHwAScAtSvJoJtGe lbm [file] ANA PAULA+6y5aH6XF1E0raN7pRGLfUsCFwGDHSh+5wfeqFpikoduJuFvvDPRRU9B/83VIRdEsehZSQ7RzLRxX vT4Fy/UKrpw29vOwbtjetz7tsmFjL5/uZ5irwqvbDv WuQXnVFzXnR0mgkf8vgAcNLbEaSQQKqJ2n9np8EewUCGbf7Ht/YPz9wZXPlPZaXbEfOctpc5U66967bQ fsWdOjGWf/8kRA1mgRoUQ4+A/IlQ7R5/6fZQPPqquKob4upcTneVlZNaajx0B9fhjIIjizW6elmpkDmZ uSJzNLUpzBfTEwyBTMasYQObYcaHEj9GnvTw+q3AaU SJiKFnyFTetOSdm4Jf5bQSpnhboDB4nSbcrssZwbKsia3zzgD3vob8Xvah/3cWB/7B5QlzukEK+ERToo 4vM8PwzV/rUi7q/V7wGu2nNNNuAdk9hT8XdMbCMYLFxZLAnM9VU74ra8DtJIg0e37lfp3KXHnIJ4AlvD 8QdQIWB9HnuM4YF7JbfhizbhhHsp2a2+YGsCANFgDo lgZ3R3LqJ+kDoKiGxiSO93GwyMo0xoAXS8sKs3G9MiEP7iRvyRR6IHJ6SEcM0YkfT9jh7yeGO2w0+f78 fJ43eI/Nb8vnn/Vgw24t2/z+GH1UBvzXwp0PzmQzpjUyQc+N5lcdotHeWQnZZu//Rs8YzCvJGe2Fgydj Xpb6HivNjWlKlc4DS1+CZflCTnCiBLhGp0+ylDCJLv TOFJDgMqylJ0sRohZKtysXPzWc0tXY9GQJVdncMxn4zknEQ37tDim2oIYo9L8SjDQuteOvYtlV6eM5ER Fh/I+BKHpowl4CkrJa1LiYQE9qX9DPGhb2yGaNruf2Lte9gDn5og2qwi99tpg2/hEXvPsBzr/mi3v/lH yXvIavwL9+Tadyk46t0DZ8z9mGA5xsjvibKr2beHSg ABDI/ItSX3ExRSZTNhIZgwOps6eVbrvMvJ2cSQc1CLaVbVQ1B8hz90Ojxcg8R1VtdyyPxBs5huv2+Qme9T [file] 2d9CxQ2Ez0+JbWKcYak14CKwZgarD0K0klbYtlf30cck0wpP5ESkuhhVmmkpDW1/6nve/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 [file] AgICAgICAgICAgICAgICAgICAgICAgICAgICAgICAg ICAgICAgICAgICAgICAgICAgICAgICAgICAgICAgICAgICAgICAgICAgICAgICAgICAgICANCiAgICAg ICAgICAgICAgICAgICAgICAgICAgICAgICAgICAgICAgICAgICAgICAgICAgICAgICAgICAgICAgICAg ICAgICAgICAgICAgICAgICAgICAgICAgICAgICAgIC AgICANCiAgICAgICAgICAgICAgICAgICAgICAgICAgICAgICAgICAgICAgICAgICAgICAgICAgICAgIC AgICAgICAgICAgICAgICAgICAgICAgICAgICAgICAgICAgICAgICAgICAgICANCiAgICAgICAgICAgIC AgICAgICAgICAgICAgICAgICAgICAgICAgICAgICAg ICAgICAgICAgICAgICAgICAgICAgICAgICAgICAgICAgICAgICAgICAgICAgICAgICAgICAgICANCiAg ICAgICAgICAgICAgICAgICAgICAgICAgICAgICAgICAgICAgICAgICAgICAgICAgICAgICAgICAgICAg ICAgICAgICAgICAgICAgICAgICAgICAgICAgICAgIC AgICAgICANCiAgICAgICAgICAgICAgICAgICAgICAgICAgICAgICAgICAgICAgICAgICAgICAgICAgIC AgICAgICAgICAgICAgICAgICAgICAgICAgICAgICAgICAgICAgICAgICAgICAgICANCiAgICAgICAgIC AgICAgICAgICAgICAgICAgICAgICAgICAgICAgICAg ICAgICAgICAgICAgICAgICAgICAgICAgICAgICAgICAgICAgICAgICAgICAgICAgICAgICAgICAgICAN CiAgICAgICAgICAgICAgICAgICAgICAgICAgICAgICAgICAgICAgICAgICAgICAgICAgICAgICAgICAg ICAgICAgICAgICAgICAgICAgICAgICAgICAgICAgIC AgICAgICAgICANCiAgICAgICAgICAgICAgICAgICAgICAgICAgICAgICAgICAgICAgICAgICAgICAgIC AgICAgICAgICAgICAgICAgICAgICAgICAgICAgICAgICAgICAgICAgICAgICAgICAgICANCiAgICAgIC AgICAgICAgICAgICAgICAgICAgICAgICAgICAgICAg ICAgICAgICAgICAgICAgICAgICAgICAgICAgICAgICAgICAgICAgICAgICAgICAgICAgICAgICAgICAg ICANCjw/hZGpJ6tmqRDtgeO0V3nzLi9BRq3BFT0pb2MqHDBsZUgcviEpLgpEOoYsZAPhEfmPIny0ZQak MZ2YhJAuG4EiR3WpEDznNE1JZNYkTZAtfLYnZJAmFC HqDoS2NEGeXAbvHL6FcQPsRQqiUMJtEBAxZsUtCKShEW4UBREgA903hcXsFe9FLi1YCjFqQK0lgp3OQe JwNUKsCbjANxc1ABfbRP1DhABckZCmOyFrOQBSNvNaO8fci4UzBpLzCJXTZMrsKK7Sz9ZnoWWgMJe+Pg 1JHA0fu3AqBEzbMcGjZD3hmg6SRDvJFfGrD2PjuYai EMDhi3wfWXIrEW2ygEIdJLM5WSThtlSfQaVOHTmucTqmJVVxQCMsLx1oJx8pFHVyRWBdZlMpKVJPXN0G GEBsRJWpwFFdWGSfMDGIDD9YPKebFKZ4GLIylrYepUDuKUxjPW4UYLFwwfAaQkUqUTCCUSx+Dz7GFU0p k5WjLHimMpMhAW0plt3LAQmKDcVcB5T5hNKkF0F4RQ haWv7ASOSpEKAePFzgJKGTRMtfCL1UUR5knvO0IC9UbBBoTWZpTNEkzVNjGOp2J65hfWJsKNnkOO1IMW A+Sneha+Hc8HEMKfBUTgWLVhQfArGWYPSlQfB9ZzL2YFa0JsF6LkGH88pHnevpErUOymUF3RMS1tTKWrSY IAQY1NxNLrgG1ewtYnDGDkBGQBXdYeY09hjDBqGYNw JHYmSLUhHh8INHBhL0YcmyEykSttrwUjRNJyOBHTVU4PMCtbsoMadMHmjVreQE81iIggTV8PIq6KImQv PX5spq6BoAYgTa6VDXGgZF8RBGFrJETqNQLiQWE0DWOyNxNgHWmgHPUlJNNcSSA7ILXcFIFrPH0AWuSa BYTgDQA3ZBVhGUMhGOZnti6HWOQjKWZ2ZcN8MMSgYR JpSFSbNFdcWFAoVVUsGQO2ORKrXNHoDY2CKqSjDZNgWPM9PXOhNJMrHUDegw3FRPDgBEGsRJX0VaEeZO BiCLZiFNfxZGVvGAZ2QIIbNQYbPUXnSS7IEcGaQYNrPLi1CHEyQYWbOERqdb1FAWTpUCAaXOScWFCgJW KrSOMiJZocJYMsBYO8HDRvBCVaMAUlAN2UTsQtRUPe VLj7RPZcSOSmCZYitk5HEFBxBHGyBSh6LFNhNOBnLHKnBZjhWPQlPNFtXMGeQZKsAYUhCE4OShIsFBGz AMHxYnQoGXCcCUVyxx3LGVLiJOJ2AhorLZGtSCZbXTLzCZdtWMYkSLFjXYI6GKRzBZSvTY8DShCzPEUm GQE3CIBzXJZhFYGzzg0ATCUzKAC5RRC9NADxFGDiCU OvRZqyZJInKIN7AfB8LOLmGNQoJR2YGiGbGAQoKWKxBfEkALOkOMBikx1YIHZiGBW9BmH7FNXgSLBkUS AyQQdtUTKaAHC6ThNfHNPzZZKlAA9PDhSyRPWnZNK7XFwvZFNpYWSyxs1VrTTcvJtcgi8AQPvCFr2MfE toXPK4PTwfSo6yvZMaNaAdHFZASq6TpsUyISVbZTCG LJsxZSPuTCKjSoNxAYD8CKa4XwJ1UhG4QvrlHVy9NcGiOeggQdPmJkX0LQOiKsA0CEOrAuJcBSJfNofd DQM2ACeuMHAwW3P0L4X+WS1wCUe+Xi1Ci4UsqiT9ulBzORd6NaPaMQ9WYCMIX8UZTi== ID Date Data Source [id number] 09/18/2020 12:39:00 PM EDT [facility] ([facility]) Name Value Range Interpretation Code Description Data Molly rce(s) Supporting Document(s) Erythropoietin (EPO) [Units/volume] in Serum or Plasma 76.0 mIU/ mL 2.6-18.5 Above high normal [facility] ([facility]) [employer] DxI 800 Immunoass ay System . Values obtained with different assay methods or kits cannot be used interchangeably. Results cannot be interpreted as absolute evidence of the presence or absence of malignant disease. Performed at: - [facility] [id number] Lens Matcher: Janelle Bearden MD, Phone: [phone] Ferritin [Mass/volume] in Serum or Plasma 395 ng/mL 26-388 Above high normal [facility] ([facility]) ID Date Data Source [id number] 09/18/2020 12:39:00 PM EDT [facility] ([facility]) Name Value Range Interpretation Code Description Data Molly rce(s) Supporting Document(s) Iron (Fe) 59 ug/dL 65-175 Below low normal [facility] ( [facility]) Total Iron Binding Capacity 315 ug/dL 250-450 Norm al (applies to non-numeric results) [facility] ([facility]) Percent Saturation 18.7 % 19.7-50.0 Below low normal [facility] ([facility]) ID Date Data Source [id number] 09/18/2020 12:39:00 PM EDT [facility] ([facility]) Name Value Range Interpretation Code Description Data Molly rce(s) Supporting Document(s) White Blood Count 6.8 10 4.0-10.0 Normal (applies to non-numeri c results) [facility] ([facility]) Red Blood Count 3.45 10 4.30-6.10 Below low normal [facility] ([facility]) Hematocrit 37.3 % 42.0-52.0 Below low normal [facility] ( [facility]) Mean Corpuscular Volume 108.1 fl 80.0-96.0 Above high normal [facility] ([facility]) Hemoglobin 11.6 g/dL 13.5-17.5 Below low normal [facility] ( [facility]) Mean Corpuscular Hemoglobin 33.6 pg 27.0-33.0 Above high normal [facility] ([facility]) Mean Corpuscular HGB Conc 31.1 g/dL 32.0-36.5 Below low normal [facility] ([facility]) Red Cell Distribution Width 15.3 % 11.5-14.5 Above high normal [facility] ([facility]) Neutrophils % 59.3 % 36.0-66.0 Normal (applies to non-numeric re sults) [facility] ([facility]) Platelet Count, Automated 240 10 150-450 Normal (applies to non-numeric results) [facility] ([facility]) Lynn % 13.6 % 2.0-8.0 Above high normal [facility] ([facility]) Lymph % 16.6 % 24.0-44.0 Below low normal [facility] ( [facility]) Eos % 9.2 % 0.0-3.0 Above high normal [facility] ([facility]) Immature Granulocyte % 0.3 % 0-3.0 Normal (applies to non-n umeric results) [facility] ([facility]) Baso % 1.0 % 0.0-1.0 Normal (applies to non-numeric resul ts) [facility] ([facility]) Lymph # 1.1 10 1.5-5.0 Below low normal [facility] ( [facility]) Nucleated Red Blood Cell % 0.0 % 0-0 Normal (applies to n on-numeric results) [facility] ([facility]) Neutrophils # 4.0 10 1.5-8.5 Normal (applies to non-numeric re sults) [facility] ([facility]) Baso # 0.1 10 0.0-0.2 Normal (applies to non-numeric resul ts) [facility] ([facility]) Lynn # 0.9 10 0.0-0.8 Above high normal [facility] ([facility]) Eos # 0.6 10 0.0-0.5 Above high normal [facility] ([facility]) ID Date Data Source [id number] 09/18/2020 12:39:00 PM EDT [facility] ([facility]) Name Value Range Interpretation Code Description Data Molly rce(s) Supporting Document(s) Lactate dehydrogenase [Enzymatic activit y/volume] in Serum or Plasma by Lactate to pyruvate reaction 188 U/L 87-241 Normal (applies to non-numeric re sults) [facility] ([facility]) ID Date Data Source [id number] 09/18/2020 12:39:00 PM EDT [facility] ([facility]) Name Value Range Interpretation Code Description Data Molly rce(s) Supporting Document(s) Glucose, Fasting 78 mg/dL 70-100 Normal (applies to non-numeric results) [facility] ([facility]) Creatinine For GFR 9.14 mg/dL 0.70-1.30 Above upper panic limits [facility] ([facility]) Blood Urea Nitrogen 57 mg/dL 7-18 Above high normal [facility] ([facility]) Glomerular Filtration Rate 6.2 Below low normal [facility] ([facility]) <content>Units are mL/min/1.73 m2</content>
<content></content>
<content>Chronic Kidney Disease Staging per NKF:</content>
<content></content>
<content>Stage I & II GFR >=60 Normal to Mildly Decreased</content>
<content>Stage III GFR 30-59 Moderately Decreased</content>
<content>Stage IV GFR 15-29 Severely Decreased</content>
<content>Stage V GFR <15 Very Little GFR Left</content>
<content>ESRD GFR <15 on EMBEDDED DEVELOPER</content>
<content></content> Sodium Level 142 meq/L 136-145 Normal (applies to non-numeric res ults) [facility] ([facility]) Chloride Level 102 meq/L 98-107 Normal (applies to non-numeric r esults) [facility] ([facility]) Potassium Serum 4.7 meq/L 3.5-5.1 Normal (applies to non-numeric results) [facility] ([facility]) Carbon Dioxide Level 32 meq/L 21-32 Normal (applies to non-num augustin results) [facility]) Anion Gap 8 meq/L 8-16 Normal (applies to non-numeric resul ts) [facility] ([facility]) Calcium Level 9.4 mg/dL 8.8-10.2 Normal (applies to non-numeric re sults) [facility]) Ast/Sgot 14 U/L 7-37 Normal (applies to non-numeric resul ts) [facility] ([facility]) Alkaline Phosphatase 58 U/L 45-117 Normal (applies to non-num augustin results) [facility] ([facility]) Alt/SGPT 24 U/L 12-78 Normal (applies to non-numeric resul ts) [facility] ([facility]) Total Protein 6.4 GM/DL 6.4-8.2 Normal (applies to non-numeric re sults) [facility] ([facility]) Bilirubin,Total 0.3 mg/dL 0.2-1.0 Normal (applies to non-numeric results) [facility] ([facility]) Albumin 3.7 GM/DL 3.2-5.2 Normal (applies to non-numeric resul ts) [facility] ([facility]) Albumin/Globulin Ratio 1.4 Normal (applies to non-n umeric results) [facility] ([facility]) ID Date Data Source [id number] 09/18/2020 12:39:00 PM EDT [facility]) Name Value Range Interpretation Code Description Data Molly rce(s) Supporting Document(s) White Blood Count 6.6 10 4.0-10.0 Normal (applies to non-numeri c results) [facility] ([facility]) Hemoglobin 11.7 g/dL 13.5-17.5 Below low normal [facility] ( [facility]) Red Blood Count 3.49 10 4.30-6.10 Below low normal [facility] ([facility]) Mean Corpuscular Hemoglobin 33.5 pg 27.0-33.0 Above high normal [facility] ([facility]) Mean Corpuscular Volume 108.0 fl 80.0-96.0 Above high normal [facility] ([facility]) Hematocrit 37.7 % 42.0-52.0 Below low normal [facility] ( [facility]) Mean Corpuscular HGB Conc 31.0 g/dL 32.0-36.5 Below low normal [facility] ([facility]) Red Cell Distribution Width 15.3 % 11.5-14.5 Above high normal [facility] ([facility]) Neutrophils % 57.9 % 36.0-66.0 Normal (applies to non-numeric re sults) [facility] ([facility]) Lymph % 17.3 % 24.0-44.0 Below low normal [facility] ( [facility]) Platelet Count, Automated 240 10 150-450 Normal (applies to non-numeric results) [facility] ([facility]) Lynn % 12.7 % 2.0-8.0 Above high normal [facility] ([facility]) Eos % 10.9 % 0.0-3.0 Above high normal [facility] ([facility]) Baso % 0.9 % 0.0-1.0 Normal (applies to non-numeric resul ts) [facility] ([facility]) Neutrophils # 3.8 10 1.5-8.5 Normal (applies to non-numeric re sults) [facility] ([facility]) Nucleated Red Blood Cell % 0.0 % 0-0 Normal (applies to n on-numeric results) [facility] ([facility]) Immature Granulocyte % 0.3 % 0-3.0 Normal (applies to non-n umeric results) [facility] ([facility]) Lymph # 1.1 10 1.5-5.0 Below low normal [facility] ( [facility]) Lynn # 0.8 10 0.0-0.8 Normal (applies to non-numeric resul ts) [facility] ([facility]) Eos # 0.7 10 0.0-0.5 Above high normal [facility] ([facility]) Baso # 0.1 10 0.0-0.2 Normal (applies to non-numeric resul ts) [facility] ([facility]) ID Date Data Source [id number] 09/02/2020 12:02:28 PM EDT [facility] Name Value Range Interpretation Code Description Data Molly rce(s) Supporting Document(s) Progress Note [facility] KRVCDu0kBxHWZaDi26/MNErvQAHtx6GeSZzwWYa7YUosVVDiF2LzBWK7xH3nBOH1DQzAPaEuBsLgZfPy lbm [file] sP/tBnchoGFa8McX75v7RuMUQ3QNZaKBnd1V5Q+Tanisha H+jjl63n+g/ahfk+nLhJSCrA7+NTitZKrk9JIy1C44DLd3g9ge+tksXsmvWNu+xABJHGklH+jbCGZlco 7l2i23xV4DHOp3ENrxSGmVwHW26EIcg+G2FiBtFxjB4LELhkZiHnTPfjnDdYxmagzGjQiSwPttD5v8K7 IZyhLNc3S/srGPlmpJXbgGaSxYHVDn50NYr/xuTLIH 4Ir27K5lnQ4/JPUNZfoBQ58EoRVxnda+SDokDIbtZG7gMIcsMvAaHQJYQiuM+Uv5LWADVYabBAlQNXU1 TBInBSJb9fFyoLEfQOaDMKqMUYtmljCqKKrSWtvRmCrY8cSWlZG7bePHtjzF89roLhYhHi/XnSJaKUFl oauWUEh/MMEqbqlr7EmzeAXc4ppFA5I/xQtydEojrn kBXZVnu50NIqPyDfdkienGM9+Q/2sJj2obcUN71ld53i/asxW5oYoOgQ81jj5FLJnw/ThWmRfBEpmZyQ 44rN1xNCdaow0gtJ03OSNO5T61n1oSS4uVRMnHVkhNc3pDOdEmR8bTL2JemKTlDS2uVByxHcqTQRU+/0 9wQ1sWfHq2RquZKQh5KngTNG2eK1xpSlLVWOGq7hfH zSgfq5SdRJuvGLWZxUg6DBJ944qPmRvmjeibSCc1QeGA/VHYQz4wfn0VqB6hUwkxB1kTzNtr+E2wtUbV uuqe6L9xH+vQJYylUk6HA6jjxY9Kv4ST94UfWzkYzA7bAuspQ3Umop0tWYKPE96E2wshbWTZeKNv+VICKI+ W9fxqJTYW7RN5jmepCcYwjN5458DPjP2/2yBkcORGD s/F4u5gqD9OqXuaoxToV/wWrLnsuRdkYXuK5mW54c+JAih4Fpjq5x8m821kbjxEcgQ2pSw4URSsWhsPQ FWAqAWDrTVz4aSitTH/ivDnBbdHEviRXey7bQcL4C+hTDKy5sC5qot3M1Ad+Rd+L3S+CASTAÑEDA/k0NU7nDY1O q+T0VpPhmx00aESPO3pYgqckFT52vV7L7CkRm3hwQd BD290NUv+NZ+f20JlUYGdk/yD0utJp7pT9l3FGep7TAPZ8Am+Pd6Gfl5dSj9cdk50UdnhZ7ororHQw2Z 5WxrzCjg5LIbjtX+nv4G3l7He+1NX0S8uAJRT5WPkoB/DD77ZGO9WlkMhpXr0WobSZcKq/peRTxxwl9I F50JpyKGkNAvoV21jGdX89pxcXdidhffzVdc/TWjwu xb2UuJzqMQLX+/iPvHjjjDJoeSPRQw4F7AAmUezeoxubTKQ4Z/B66PvnKAn8bwhFuNuQu+yjyZVnuULg +iQ67Wsm+BiVpCj5FsMTFTZZv551GcgI/M3Fs9LNICbR8jAU+Mad1/97whPPMEk8I163qTYvqxtwK2SV l+QqHYGlqYeZPyOy8j0uAMQDb/8W6c9gqBbQ/kJdJG mNWYP+Lm7sxK5Tf90+VvmN8RrOZlR5Ta00BVlHRPPYcLHRGoPYlZ2HjXwwKi6oVVhYJdumUXIWjCWxdq /9ERNUztCUTBye8yuslCm3IYHhNAiCDlUpf4kHuzlYOtNNoZdz/l1NXXkoOULWXW7ybHcQv56RdE2yEc lXQHwVBhrKTVZdMyFGD9clRFWLANVWVgV1XFro5sEq AGKPWYO+Crk8Qd10HCYgcjNPQZ16oSCOHwPHCTnJKIPce7qWlfNZBHYG+sxu5fx83XvSfPgjZCLYvaGE [file] ID Date Data Source [id number] 08/31/2020 12:43:02 PM [facility] Name Value Range Interpretation Code Description Data Molly e(s) Supporting Document(s) [facility] DSSOAu8rXkETZkAre7PuWpKcLZXcQS2rgty6U1K0jAGjB7VyvXJyx8qaJ2XnQ8CfOCXqSFVDDF1LvGKg jb2 [file] OAXMh7B+KP1R+qP0R+lPpz+d/nT60+lPpz+d/nT60+lPpz+d/nT60+lPpz+d/nT60+nPoD+D/gz6M+Luis Fernando oD+D/gz6M+jPoD+D/gz6M+jPoD+D/gz6M+iP0R+jP0 Z/jP4Y/TH6Y/TH6I/RH6M/Rn/KyDL6Y/TH6I/RH6c/Tn+c/dn9jvka2Kscj5Vuik6Pj4f+OP1x+uP0x+ xK635Jokg2akVx3a9Qrfb3sfWq7q8Ldzm9uqHu5u8Fwfg7ncPv7y5Ftjd2OjSf0G4Idiw6OwRx6W4Wfv u5RaZk1O0Avix0GyMf3M8Dwtl87jHu772Cesf25mXt 748Rmnh79dEn421Lcin72eNf111KQ66pNq9RidOwTu9hBtdjyKYmtWxo6wWhzaC3xNtfA9oVXd2ildcj xT8p/knxT4p/IiaG7p5S/6T4J8U/Nr8X3RK4GkKLLD8P+TB7wdFCSWIFMIAIFcZSYJKlEXIHhDOTbPHH VUPKIOrULnZ1sLCyCSRJLRZLFdTZBTYeHRUNlJDXGS PTKXCCYHnRHIN7uDIbTXIKADCDSgSAMAHmBV2AiSwW4NRBkPWRJUsXJJD8gnSTNZOdWUVLLpJXIGIoBR [file] 71ZLng/Pj+uR67JXdRppvQeFN2R9v81uemDzPathqLFu8F3Y7Tgw5gc1duf+CUSTOMER EQUIPMENT ENGINEER+bpXc/S1j9dou9Z0rZ [file] 45lnPBOoXYeU+ZY/lM7h20wG1sf9RC8ixbQlxUbp8Ja9uTMPho2zgBCC+1l85Ye5hRv57fb293Oz/+José [file] d7+Vt79/+/C/3959uDH/WMog2x322ll1A025X6+fffLll7/Li2z6dg8uq05+at13T034wRrrhr0L65h/ /AhgG5dlvb/eRD/W8bEYf++sL/Y2v91p4m/xwcU0Xr0++rDt6xoiIdmh721+9fabL7/30wm855lf0Fxz fXj/vEygzF16ky/qNx+++PLd2/t3H95/8e63n/zqJw 6y93D8XV75j5xGkbMEsaUgettNS8/personal property appraiser//dh89//d/87P7+3j/84km7x67cmpvFu/nf/Ejyxv/183dfvn 361a+//uT9u8/e/vWLD5/ng4f60vbeF//oq08/pGFwT69fRKo//CS2Nz8ldaT5qXj//WAOU0ra/MsPb5 9+/ziPn7u82k+clWD5k07+8+Vn/80/b1vg/uenf/7h 3//4l++/+8Pb//ivt9/+8U9/+vYvf/nu2z+9XuO3P/zxuz+9/ukxvyj0i7/78w9v8+e6f+9t1IK2cL27 uvTXv/4b/XkKkb/A8f33P/9kq3krZirSw/WCv/6u3LewEN/er8//T7Ry6npc/lyzK6dIsS5cSx7l/Ip9 uC4mhK8jq02US9a5S2++vvox4PF4CWFL/YP33/37dy 8F3dr6+O3tn7/6/Qq4I3753Z0/+fCjR20/+k+p+J/mS3CyI8c0w8rZE8c5dy3o3OrhCFrJJdb/6qO//e 6H//bOf210+x/f/ejsry/bA1C8fM/0PV+CDzoPEM131gA+/f7tjz/8x3d/+T9/c/Nx+qPMH58+7v1gq/ /07Af7l/lunF2wD9/3/sc///HI53nIjC+pVd5dXM/y 4ef/5qR9cC84XcUzavWYE/c7p33jT+d7Ig7xqJ0Hmg+PdeR4S2EJ+gdsKitgc13/9OHt2//73V//dtg8 043fE8254rKH4pO+t7U295f//eXf/l7lug8t2xno/ulH73f/CP302//8/bd//eO3P/zt/x81vP/zn7// +Yiigl8g/fn3H78+4Ryk9+sq1p1xK/jw3e//1w9//P 3rCh//4ldfffX+7TX//uIXP/c716bU5//6H6+X04bQN0l/+sm26792Cm+2ovV1Subqmz5v//zuTd7+/O 9vVGeQTD+T3Xa5jQzu9H3i3/q0WI092BgMB4b90ipne/efvXv/NmdYA0Mzkr2a4wjoppT496yPSXOlxm c6/i8HaTatUwYqSKS8cxLlyQuphtYpJgtEBWsmNJUz Jix9JL6XrUKnECVjX7B4TJBhvp3nEUEcVZTinDYeFcZxASMGEW2VwKBrUX4LPOw0PCUiLQOuAaQeURRk zvV0IEOpLYCmQGVbH3SeqyWqvZGyCJJaHb2+SI0rd2AlJkWhHPSnQmg9GO5CwVZjYV7ZxLHlwW9ptfVh K923fpIrWTTuKijco1XjLCcrAFMVCC8SUNC7BSH6XU AgUj4+YU4nk5TdOjMeCCBpRxk5FJ5VwNYyc3VqDN0OK3HtTOJxBBDEVMK0v6ZhOWWedyellmbtM1FlHX X0eO7pQVX2YDIoNAuxIITzAWMcJGWtFLRyWFjfXGGcFZBkMWYdHXGwWNz2xRLfSX1OZ9KsQUUfSHXSPC RurgLeEh5rCLXPX90AMADEIW3SIFZmSvC8FSQvXBFv D8EourZtwGIbJJRROFryXzymSZAekH6xvVweQ4WeKCV7w4IsQD1KF9ZlYHMkCZHUZWS5b9TmCWMlcipu bkpmJgDkEYEbLAHkQEHcQQ1Frz3vhPEqwnOpCLREPBygHzqdIF6hdDmknijbG9HlyKToYXU+UiFmVB6a aj4+EaEbIKMkHey1RKZvXWkoHQJyGWCxOIQhX9xtBC GaYgRwQUVmBlKcZR2Zg3DrjPGoMq3hbtAbJgdLvKKuMwucZMZwJZPuALPaJwDBRUBkZIDaLYDkQRA5GD NpGDYkGRjmDFLvTFF0ZyjhQSHvHZAeJZ2lUpXjABXbVabaFDegRNFfYQXtcaBFKTNpNYZ9UsMsCiXvED EkTDRaLIrvGWYjCSAyONBzSVO8PLZ6KIJuQpXzSWXq ORXkMZNxIHBrRACzqhAGDCXkKLPjAJT0YUQeYZIcHYSlTErcBMTfLDYxFAabTUVhDZNxOX1lAbWcQQMx NRCyBBmuWWTqTPBoddEBUWPzPCQuQZFmFIGsOHToNDQqWOliFBAgQUMqRBTgIWWcJNEuJZ6fXsOnVIPw ZHN7BBYuVZTjSZZgwiTPSWPoNRBiBSi9MXOjBANkTG RsLVbbVVQsMVIoNSA2RELcINLvCV3aJvLpKQElGUN7XxLyLCPdZQAkbzFQXQDfADEvJFR2LnPvKDZbPW RxZJowRBOnXNZiDArrCPJcOFSxAB6zTpCtTFChWPNyPJhjXVCiGADdlnGEZTJpEQCjJBSxYuLmNXViVF OtTTryVPQyUGJ4LSE5GIHlNGAjAU9rLnVoADMxVSV6 BLsmTIOtWLYqfaRKDKGtIYBhDPyvRSKrRYAxKOWuSTzkMWZeKQGuCFZ7FXBxECDwKM3cZxQtKASlPIWx ORVjWiN0GbXpYfJAcGKnqEmqtoi1KWccA5c0VBHsNHkbSW5awiZeQMFvAlwnQm7vdTP4BLWnRinLFt9U q5GghvN5xtHtUwO7YWQ9BgWsKR0K ID Date Data Source [id number] 08/31/2020 12:34:46 PM EDT [facility] Name Value Range Interpretation Code Description Data Molly rce(s) Supporting Document(s) Progress Note [facility] TMIUTp6sCzSWWiCd88/CNChvXHZog3MfMDdwJGz9WUhvHAQwP4InTZO6nX8mNUK8DZgOYhIfEgAwMbE3 lbm [file] hicPKL4eQB3stni81jIC++Bass String Winder/CrmnH1o3Guv30oCf7PD60ABo+Oq43QYlu3Sz42Ppb0k02hOTVu1tJUT [file] m7ZnnlH5idKsVDo4YZL5OJ0CXCHGM1SJUk== ID Date Data Source [id number] 08/05/2020 11:19:00 AM EDT [facility] ([facility]) Name Value Range Interpretation Code Description Data Molly rce(s) Supporting Document(s) Potassium [Moles/volume] in Serum or Plasma 4.1 meq/L 3.5- 5.1 Normal (applies to non-numeric results) [facility] ([facility]) Comments: NO IV PUNCTURES IN LEFT ARM By: SANIR Time: 1054 Comments: NO IV PUNCTURES IN LEFT ARM By: SANIR Time: 105 ID Date Data Source [id number] 08/05/2020 11:19:00 AM EDT [facility] ([facility], ) Name Value Range Interpretation Code Description Data Molly rce(s) Supporting Document(s) Potassium [Moles/volume] in Serum or Plasma 4.1 meq/L 3.5- 5.1 Normal (applies to non-numeric results) [facility] ([facility], ) Comments: NO IV PUNCTURES IN LEFT ARM By: SANIR Time: 1054 Comments: NO IV PUNCTURES IN LEFT ARM By: SANIR Time: 1054 ID Date Data Source [id number] 07/31/2020 10:30:00 AM EDT [facility] Name Value Range Interpretation Code Description Data Molly rce(s) Supporting Document(s) SARS-CoV-2 (COVID-19) RNA [Presence] in Respiratory specimen by LUCI with probe detection Not Detected [facility] This lab was ordered by [facility] and reported by [employer]. ID Date Data Source [id number] 07/29/2020 04:00:00 PM EDT [facility] ([facility]) Name Value Range Interpretation Code Description Data Molly rce(s) Supporting Document(s) EKG Laboratory test result [facility] ([facility]) ID Date Data Source [id number] 07/01/2020 04:30:16 PM EDT [facility] Name Value Range Interpretation Code Description Data Molly rce(s) Supporting Document(s) Progress Note [facility] GIJWLk7fTpUJNiRf68/YAQelRRDpp4ArZBjuEQu4GQcvZYPnY6BdZCA3cE2rWJQ1TXmRZeJqFiLzEJF9 lbm [file] ICAgICAgICAgICAgICAgICAgICAgICAgICAgICAgICAgICAgICAgICAgICAgICAgICAgICAgICAgICAg ICAgICAgICAgICAgICAgICAgICAgDQogICAgICAgIC AgICAgICAgICAgICAgICAgICAgICAgICAgICAgICAgICAgICAgICAgICAgICAgICAgICAgICAgICAgIC AgICAgICAgICAgICAgICAgICAgICAgICAgICAgICAgDQogICAgICAgICAgICAgICAgICAgICAgICAgIC AgICAgICAgICAgICAgICAgICAgICAgICAgICAgICAg ICAgICAgICAgICAgICAgICAgICAgICAgICAgICAgICAgICAgICAgICAgDQogICAgICAgICAgICAgICAg ICAgICAgICAgICAgICAgICAgICAgICAgICAgICAgICAgICAgICAgICAgICAgICAgICAgICAgICAgICAg ICAgICAgICAgICAgICAgICAgICAgICAgDQogICAgIC AgICAgICAgICAgICAgICAgICAgICAgICAgICAgICAgICAgICAgICAgICAgICAgICAgICAgICAgICAgIC AgICAgICAgICAgICAgICAgICAgICAgICAgICAgICAgICAgDQogICAgICAgICAgICAgICAgICAgICAgIC AgICAgICAgICAgICAgICAgICAgICAgICAgICAgICAg ICAgICAgICAgICAgICAgICAgICAgICAgICAgICAgICAgICAgICAgICAgICAgDQogICAgICAgICAgICAg ICAgICAgICAgICAgICAgICAgICAgICAgICAgICAgICAgICAgICAgICAgICAgICAgICAgICAgICAgICAg ICAgICAgICAgICAgICAgICAgICAgICAgICAgDQogIC AgICAgICAgICAgICAgICAgICAgICAgICAgICAgICAgICAgICAgICAgICAgICAgICAgICAgICAgICAgIC AgICAgICAgICAgICAgICAgICAgICAgICAgICAgICAgICAgICAgDQogICAgICAgICAgICAgICAgICAgIC AgICAgICAgICAgICAgICAgICAgICAgICAgICAgICAg ICAgICAgICAgICAgICAgICAgICAgICAgICAgICAgICAgICAgICAgICAgICAgICAgDQogICAgICAgICAg ICAgICAgICAgICAgICAgICAgICAgICAgICAgICAgICAgICAgICAgICAgICAgICAgICAgICAgICAgICAg ICAgICAgICAgICAgICAgICAgICAgICAgICAgICAgDQ n1Z2kcPKDeNLGkMX1xVEv3Ej2+RVfCNhZeMKJ7yrKwmD0EDV4ty2XdKNiqMRSbs9WkMBz4QH0XZMFtVE lzYF5GJXulmh4GZHCxKOWqpSEVf0hgOpSkALK9SEWuOyfpXR7CNAXlH9qyuwMvWTMdTYOUXDzsSFNIIP WbKBLbKfCuFrKdLZVpEZJmZSZTRMX1RPEiZuHjDGCl MNVrYnPzHNBMJWTmSJTiKzMzLQVnSPYgJbGeNZYTSAW1VOPoZmMkKIPgFLSrOB6LTQAjQ201ktWeQDBZ Cj4+EUwcofUnNnhRAxC9NNJne6RhPUl6KF6KIYImLvgih7MhBpfjANCGUDgjLO1ELGF3INS1ICAlId5R NPUyA411nvSkNQ0APq7DCtDzHA1fpr5XFbmrBZEmEu lQTfb7HVurOY5PfLZfFCgYoy9lobTknmQVp5MtxgAymNFMLEt2bFSQUQToQWZYAgWmgVY9RpV6HlXeMe EfRJL0TFTlDK5qHJtxYL8HKJY0KUnfXIMpVDBsM4zEGdCnGWNhTRLorYzlSK3WIiGeA5TfmaMowLF3Sv AwIFINCj4+OIyotgGqRkeVPzZiJUZwEnqRPxm6YWxf TP4HwEUzUT1Gib6riHAdQ3QdnPabNVVaGPqrjvOaCz5cKYBcPXsqXOLxSI4cL3eaN3euY5ZqHCDOKmSx M9PqY9KfPwFiOBY5GHKhVPXaBkW1BTNLGkOpM2DnFHrdWwWjLVZPTA6VMkvvYYPjNhiYDIjCN5ADANvD ZJJINr4GX41RJ68RJPEGYY1PJ7mESigrZU9+IA0KPj 5TJeLgBA8nvg0IHzwbAPDlZzwXJrc7NZsqNS1PkDPoV7XasCDqs8bBQfAvK4CPBZO8XCSbGc6NLSAbDk MmTQLcPLlaQI8iVLNvOFFXkObmssE0YN8HRX8rwuTmFV2KJwRpNo7sGq3XRpKaV7EyM9EoBDPkOHUYIM anCL7NYTmsZB9wIG4Pb4ZUbGBsiW5lxi2BMLViUPFu Ykmbdr0ADtgfE3I5zZqyHTZgCbxuKXTZWXckXF1JYKDzMEI7EPZ8XmSiVJRVPjKhA36hBU7BI0Qwr19g MqU4BALiByChEZqcKO31fSspbhZxxNMxxCwqOU2MNv0+DQplbmRvYmoNCnhyZWYNCjAgNzANCjAwMDAw OUYhVKHdYkH5DuNcNg7TLWUoEYKmKAPqXzEbKZKlUV EeWRgmRGPgGRV5QNT7HXAzBYLgYA7SAzIgIYUeYbRzIDwyMMVaHDKhql6RVQJtOWPgDRR5ZuPoAMQvXC KeFTfeCLDsMRElKIA6ZIZvZDOyNC2DXkOtENSsJxF8HXMzYTOhUUFejc9FUZShLRBzNkr5MzNeSHYnWE IoGCuoMRQkAAA8SFL1HOJrVPQvCA8UUhLrZGVgLAVk GdvbESJlGIQfxt8SCCUsKHOzYTi0WlLyHOKqMRNyLZjqOUJcJQA3LOSgYILnRKVtNW6FXvTyFEFlDVH5 JYLxTPAkZVQcuy0VSSMzVSLxXTznUwXqQKBlCKMmPDxgARHvORE7QCm7AWApXFJvCJ8VYfKoIJVzIDXw JISwUYQmWCTxdt4BLDQlZHBaSdZcJHDjMMVoYWCfFY zrEMCkEFE6PwO4QIPoKJYyUW1VSgAiHMSoYYt1TLGdXIYvJLDobg7KZFAbXUXbAQozRmTjPBTsOAXaVO soPYWjAHViDffqLMIoJTGqTY3YIcFeLQIcQaD0ZYcmOSRnHMDcng9QKETxAYDlQRUxMAKjKPZnZKNgEN okSLTgABS1NjF3OYFwQREkUZ9XVxOrVHReWkevZCtz FDKzAYDoom6VRZDeHLElYYN9YCReZKIeDUElDEqxHURtQLUnNOscFDInZUSzOS4EMjJvLGKjQeT1AEZi GLNsNQDvpu5QXNYeFHZlTONuHwThWOXxWZQaRGrrMICcVFP2ClPxKJXyFYBnPF2CHhMvEKTpNiSwHFDj IWImKFSeyo6BPHXlKPGgUrCkKbQmZCGbMZFcLOewVL InQOL1DzeySILhEEAhPA9GIqByRIQjRsz0RndwVQJbGDZffq6SNMNbAACgQvk7GdLyOAXyXSVtTZymUO JpXCK2RkDrZKZlPNHvPC7YQaSuYVTdWut2FWEiSFLvOZRzpu1GAVTjEMOsNMPpAXVbLNEqLODbPJmvYZ QtHDZiXBNaDAIyIGGcMK4NPoQkDSGpBMO7PMEsOTNi LDAybb5DTJEtHUM3JQB1RTFkRTHkIAQwMCiwSRKtFRYrRgL0LVXgYABrGJ4ESqQoJPOjEHN4SyLoYVPw WSUdpz3GCKFqMBS9AxTtAlGrAVBgVQNeOXanUKXsQFXqLEniQIFkOXHlHQ1QPfMqQJOsYJS7TrBoEILp HZUkve2NDEJeFLY3WoknFrIbUOIcTIZtCXhyYJUwCG DiOWCoVNYcOJAvKE4KPuNiYSWpORQeFsgdVPOwCYTgex7DERGlKEH5BQFrHSVkIWBlMIXbRVigPUGtKB D3BmP2WLOyDCRhHE1RSkYjJTKiROZfEDalOYIvPDDekt3UNLXsOVJ1OpTuUGRiZTLxDLDrRXirEEBmCR H3YIX7ZNJjOWOdHH8VLwGmGNCjFEK2ICivAHGmKYOh fh7LHDZxBZT5ZDB1FgOwMEBaKQJtDOfuSZHxNPJwOLJ2JYYvHJZyIK8ESrBaSOFpEvKdLLFxAQOqBAGp ss8CNTLeWYC5JsSjBxDpTEWdDIFoHRltKZUwBKLxWZi3VFEaNXEgAD7FYlEzHOUmFjG1TGAoAESrWDRl ra5JJQPfFUK1OnnyLJFrEUFsXNPlFVzdSVNsGIFvPA l3CROfVEJrTV0WOyNkGBXkArZaAcXrKFElYRRqeb8UOKHqWMI7HKLzEwNaBVCgTSGvTDtkIKFuIPP0Nm a0FMFvRIGhKQ0WMyCgJZNlRrQ1IWnqYOZaETXgei7EDXIiYSE3BeDzCNDyRBRpWJNiLAanPFHtZNH8LK ZhWAPnKACkTF1EQwTbBIGbZjH5CoPdJOPcCHPvvg9Q zKNnlGqlqs9CYIlIPv8OjYygABlzPGwxDw3paHY4JTTaLUZVNf3TdiTcKAKfQVFJWFfdNUPqEFAhJETf YlIaCrL0XdvtPMPuAMjiRHLrDNHpM0JePQQkAjU5H8NxIpBmU0LhWyZgO4U7IEIbB8MwASX5EyW9SkG4 YjI+GP4hJWu+Sb8Qa1CqgpS0drGoMRx6QfY4Of9BIIRAO3JAJi== ID Date Data Source [id number] 06/01/2020 01:41:21 PM [facility] PET W CT IMAGING SKULL TO THIGH 01515LMK AL RESULTInterpreted by:Luba Espino MDHISTORY: 65-year-old man with 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 Patient's blood glucose level at time of injection was 89 mg/dL. COMPARISON is made to a PET/CT dated 09/16/2018.FINDINGS: Head and neck: There is no obvious abnormal metabolic activity within the brain, however, an MRI is more sensitive for detection of most brain lesions. There is no cervical lymphadenopathy.Thorax: There is no mediastinal, hilar, or axillary lymphadenopathy. There is no abnormal metabolic activity within the lungs.Abdomen and pelvis: Scattered subcentimeter para- aortic nodes show no significant activity or change from prior study. A 1 cm left inguinal lymph node is new, with SUV max of 4.2. A smaller inguinal node is seen on the right with an SUV max of 3.3. The kidneys are mildly atrophic.MUSCULOSKELETAL: There is no focal bony uptake to suggest bone metastatic disease within the visualized portions of the skeleton.IMPRESSION:1. No evidence of disease recurrence within the head and neck.2. Prominent left inguinal node with moderate FDG avidity, new compared to prior PET, may be reactive given its location. Attention on follow-up imaging and physical exam suggested.This document has been electronically signed by Luba Espino MD on 06/01/2020 1:39 PM Name Value Range Interpretation Code Description Data Molly rce(s) Supporting Document(s) ID Date Data Source [id number] 05/15/2020 11:00:00 AM EST [facility] Name Value Range Interpretation Code Description Data Molly rce(s) Supporting Document(s) SARS coronavirus 2 RNA Not Detected [facility] This lab was ordered by [facility] and reported by [facility]. ID Date Data Source [id number] 04/11/2020 11:43:58 AM EST [facility] Name Value Range Interpretation Code Description Data Molly rce(s) Supporting Document(s) Progress Note [facility] AIMUAm7nGmDKWsUg34/MFOnqRTBsi6XbTWmdBIu9PCmdOYJuK2KhYMC5jW6fYNE7TLxTQiZdIbIbEnJ5 [facility] [file] 9qeUSh+e4YkIAzrndhNpP2CFHWRW6mhpXDYw0TD+[facility]ern[facility] [file] AgICAgICAgICAgICAgICAgICAgICAgICAgICAgICAgICAgICAgICAgICAgICAgICAgICAgICAgICAgIC DqJYLaIGNpBICfOQXgWUPeOYNuPJPqBSBpDL1ECDYyYFOnSZKpPZAdFULhAOHfVSCpNECvUEBuPNTeLL AgICAgICAgICAgICAgICAgICAgICAgICAgICAgICAg KFUfBPFxTOJgXBAfLAMrEREqTQLzXXQcRWXgVVElMBLpTZEpHT2PPPEmOIEqNHSgNKRsSMMkJENhTDSd ICAgICAgICAgICAgICAgICAgICAgICAgICAgICAgICAgICAgICAgICAgICAgICAgICAgICAgICAgICAg IKErXHHzCCSaRHIaVHOxKUOtVD6DYCSdRPMkRHWtBD AgICAgICAgICAgICAgICAgICAgICAgICAgICAgICAgICAgICAgICAgICAgICAgICAgICAgICAgICAgIC KuVCXyEUBgPYKlQWHbKGGiMNOqRYIoJLBkTADkWK9SUASsRQEzKPPlDDYpZTOqTICaLLCrDQOfETRzBG AgICAgICAgICAgICAgICAgICAgICAgICAgICAgICAg UNRxUNXqGWDxISExEOSrTGRmFICzFTTmTMDrXJMeYSLbQYCpVZGtJS6CFVAzNZWtTQDyIRZpKAVcPPRv ICAgICAgICAgICAgICAgICAgICAgICAgICAgICAgICAgICAgICAgICAgICAgICAgICAgICAgICAgICAg EQJwWDIeKVQvIMTaWUIwWWVrXKNkTW5HWTUfMJGvKE AgICAgICAgICAgICAgICAgICAgICAgICAgICAgICAgICAgICAgICAgICAgICAgICAgICAgICAgICAgIC SyUKKkAWXyZWSnHBVfUPYlOGGeRSYoGJVjPWQeRMZlBX9QXDZySVTsDQStCESjECAhDKXuNIMuDNEpOF AgICAgICAgICAgICAgICAgICAgICAgICAgICAgICAg VOPgRUAnXMHrOZUjSVXpZLLoDUAbYJZfWZFfBCAcXIYbMVYsAFHfVSDcES8LEECwEZRgCNNzMCZrYSAf ICAgICAgICAgICAgICAgICAgICAgICAgICAgICAgICAgICAgICAgICAgICAgICAgICAgICAgICAgICAg YXRqIOKqLMIiEPIaEOIxLCJqDUQaPKPhNN7FVSPuAO AgICAgICAgICAgICAgICAgICAgICAgICAgICAgICAgICAgICAgICAgICAgICAgICAgICAgICAgICAgIC IiMCNiGAIgPCSfOFTeDXYjEUCeBNMeYOQfZYIoLVEjZXHsEB2MWY52zEOxj7V5ZQKvNG2ugmc/Pg0KDQ pqwmOiyTVmVC2PEhZpMV7bjv7TCvOiSU8htc3NRNmE AtXiU7T1sZKxAFCoNUARCePyC66rLHexCz29NRlfWDUxVbWqDYc9Nv0KReCnG2gnRHHnZfI5MGAwNeLf HQmgPZ9Js2ZpbRBiVNf+Vl5IVH7tx0GzVIosYXFdRG1pim3NCRjPGtEvM9NtosX7KHNdWUExHa4KOUUa QALdyPUlKLQoCEUAKsOiP1SjhN96YOQQZs9+DQplbm OhIcbQXoHaQVKlu3SrLIg9GO7XSIZhTCc0dNOdOTAdB5Cwn0ThEf36IQFzDnayRnOvySpjO7M6cIwwPV 7gGKCrHQ6qPP6jGWNtLFSwEjP5RAYPON7NGEIrIAUhlIAsIRBqXSCKSA3GPLaiIWM2EWUmcbWdrCTnRD bdNK5VOHUblsHyXWkzQIGSPPa+Tw9BGE4jh3RxMBrp DHSwKK8euh9FVNmIDpKzL8A9iUYoE7X5MZasPb2PAWWhVPPwYEniIRICRSzcWM6XBC9iufD5KD4SnLCp KDVaOOQjcTKkANs4P76bkDPfUDxjCB9JYWA+Sneha+Zw7NHSBgTSGzFZMbOdQsIWKFYeHmX3RoF8TKq8Ln X3PtBT70oZldzuUoFCwoMT9KFW1jFUXxRAXKUQ3TfT GomZ8bttCdOXZhRIWEUeQpC50diRUkGQNaBHG3ZWFnDs7WSNUvT9SctbQyiLbzdzBlRXCpBBOZIB3QHO zyvcOovCUsfOstTF80hJkjFI3TVj4TJbAyWV9xin1VmWBvUq7KXYTzHn7VBCPpWLYdZBKfKWP7RTYgMk ViSKvyHHBiBAFeUDW8MWKxVLRlWD1OTwAoSFDwWCt4 YvBiQTEnQRUdvh6NKNFjSTNtEIC3FYDfEHAdWMFzUKvoFKRlKUUgFOE5XAMmOZPgLA9YRkRwMPBhUPXz LKHeLOCqKPHwtj6YJKPcECKqIjJ2NNArPGLiYCVePBsfLUHtZKZmSUN6CFTcTELcPL3ZKnDrPBVyXIM7 GWVtYSMzMMCfsq7RKUWmWQSwNbwzBqMgMTZbNFEoSM jmYKPkOFW9QWiaGKSnHMIpQS5FDvFmLTOaZTTzFTSvXYCzTADzny1BQSClQFJjMPG8LMZbJFPqYLZcXX lgUUWkMJA5QcEeUXMdBQYmVB7AGlKiOWAuCOarXzQuNFUrBWTsgq0YKHTyERHlXkD0OHYiUXQzSSXoOJ iaGUVvKIY9SCt4LUZnSKIuRR1MMjNyCECmOEg3OTOw MRWgUURaal9MAXRfKANiCHS8EZXmEGJiIHXqPSduNELoLEY3QSy5YHEqKAAuET6XIpPxZQZaUSf6XDid NFKmWLHizx2WEGWfJCLwTUX0UBBqVYKiXTJpIHy1wiJczBIcBVv7LJ4PF1QqlhUsBfTIDu0Mv670UYTr IXRyXa1HN2lvFv0qJEHgZZPSOl3CWYu7HpUcWRW6Uh XbZKj3MJH3UIMkUUU6HqT7WzGeL9L1PYA+ESx1UEO5HUYjNsOaBBv8IVKyKrJxFQfoYdE8FwGnGfK6Fm 7qFEFEKl9+BQdiqQPxsYlxDGDWOdS5KWK1KZkoQAMMXl8E ID Date Data Source [id number] 04/02/2020 12:19:19 PM EST [facility] Name Value Range Interpretation Code Description Data Molly rce(s) Supporting Document(s) Progress Note [facility] YLAXJa1dYzSVNqCi38/TWSfaTNSxx9PeGGqjNLc6QItnPNJgQ6LgUGG3fI1wHAQ5GDcNKrFhTgOkEUE9 lbm [file] ICAgICAgICAgICAgICAgICAgICAgICAgICAgICAgIC AgICAgICAgICAgICAgICAgDQogICAgICAgICAgICAgICAgICAgICAgICAgICAgICAgICAgICAgICAgIC AgICAgICAgICAgICAgICAgICAgICAgICAgICAgICAgICAgICAgICAgICAgICAgICAgICAgICAgICAgDQ ogICAgICAgICAgICAgICAgICAgICAgICAgICAgICAg ICAgICAgICAgICAgICAgICAgICAgICAgICAgICAgICAgICAgICAgICAgICAgICAgICAgICAgICAgICAg ICAgICAgICAgDQogICAgICAgICAgICAgICAgICAgICAgICAgICAgICAgICAgICAgICAgICAgICAgICAg ICAgICAgICAgICAgICAgICAgICAgICAgICAgICAgIC AgICAgICAgICAgICAgICAgICAgDQogICAgICAgICAgICAgICAgICAgICAgICAgICAgICAgICAgICAgIC AgICAgICAgICAgICAgICAgICAgICAgICAgICAgICAgICAgICAgICAgICAgICAgICAgICAgICAgICAgIC AgDQogICAgICAgICAgICAgICAgICAgICAgICAgICAg ICAgICAgICAgICAgICAgICAgICAgICAgICAgICAgICAgICAgICAgICAgICAgICAgICAgICAgICAgICAg ICAgICAgICAgICAgDQogICAgICAgICAgICAgICAgICAgICAgICAgICAgICAgICAgICAgICAgICAgICAg ICAgICAgICAgICAgICAgICAgICAgICAgICAgICAgIC AgICAgICAgICAgICAgICAgICAgICAgDQogICAgICAgICAgICAgICAgICAgICAgICAgICAgICAgICAgIC AgICAgICAgICAgICAgICAgICAgICAgICAgICAgICAgICAgICAgICAgICAgICAgICAgICAgICAgICAgIC AgICAgDQogICAgICAgICAgICAgICAgICAgICAgICAg ICAgICAgICAgICAgICAgICAgICAgICAgICAgICAgICAgICAgICAgICAgICAgICAgICAgICAgICAgICAg ICAgICAgICAgICAgICAgDQogICAgICAgICAgICAgICAgICAgICAgICAgICAgICAgICAgICAgICAgICAg ICAgICAgICAgICAgICAgICAgICAgICAgICAgICAgIC XtGZCjJOOnQJVmTSKuJXQcRXQdTJSpNMAyDLs1Q5hvYUDnOBDsWD0rIDp8Jl8+KKwHZjZiAEX4mrKueV 2WNV9ys2NwFGnqJARjv4OoSYg5BE5PKJJiXBdfON1KEEllab2XJPBsUQNxnBWLy4xzBjLbUQL1RSAzEm lsXO9ZWTEuI1oafmQqWYFmBNWJOSkkWPCZRNLbUFTh FyFpDnFeUHMdWXKtKEMDIA6BZmNnY0GiwV06PGPNAf3+EJbjodSlDnjJSdN7HUMsr6ReOKy4KW4GZISi Apvbc7WlFuZsZCLKEPvuEK8EJZM6IYM5CGNuNj7OQBXzQ908wbYbSX8OUz3WBrSrYF6hfc2AOdRrWZBn OwtAZfb2PKhyLY9ZjQYcGBlCpy3hxfDaisNRw5Qlil TgjZDHmlM1CXMgwANkHOESGSRkiEZgDnN8OyQtBgOrTPW2OFAePS2xLWbzXC7HXKR3UKayWHXqIXAaV3 xAXzTnXHKyDVPkqHilSG2WBoGoP3TnrrSxyYZmTHWdZLFLJk9+LBgazcDwFoqZZsGrVUDaHwuDFju7LQ byKK1HgAQiPO9Bzy8lfVQqZ7IxhQewZFMqSYzbsfYt Ml4pDRPxTZipUPBmJC6fH5dnW1xiS3ZgQCVFWpYaA9NaK4YmXsPtXXN0DTLkBMDkGCMhCGSDSiAhI9Vg YUdrJyDrDYYXVB9ZSmxvTQYyJihOAScWC3ZJWTePOJDDIr3AE49VY13OXGXGLI7EL9wWQkxnDR5+IA0K Hx5HUxXhPD4fqu4GGzKcVJPuTkyRJhy2VNwaBN4VsX EyM5LhhZLgn7eJRjCpM7LTOPHdKJEpKs5ZLVQdBjNcLEBfYSkyUG4lEOXrWDSXdFdlhoO7SW8WNB8rro JdVO3OZbTpDx9pPi5PCsIuR4XrP7WfEQWiKPSOCDtsPN8IZAsaKC8pLN3Qu7HLePSuwG9cea3RCWWgOG JeCourxz4VKuhbL2J5iWqoROHrShGmIURDDXcoPB7K RBKsOGO0PUEcYsAwFYRPHfZjI57uDE1EH6Hyk68eJpY3CTFeDlPqBQopVH78iEqpidHfzQOybAruJV8T Cj4+BCcgzwUzYpfTXhigESBPGaYfTbkTHeIaSQCaTUNaZNAwVpO0RrYrWw7HURRbAKUbLXVtUzTgQGKj BJVtGQeeSUShLBHjSKSkFDNpNHKtFL0SHiCxZYEsDe D1ZOOkYITuBVAdbz8NPNQbVXVpGED0IyGpUEIuZEEzMMxjDVDcCVCjLjj0YJTrFXJsVD9ETrRaPYTcNp IjYIRsKXUxBDYlcq4GSGGhAALxZfZvIOPkTEFkYPIxZFlhTYVhSFK8BYC1LUXcKOGbNF9KNpXuBXMzHE W4QNMjPDMxOQVobq0EGAFuCDCdHEDeRcYhSVJeKOIj XAdsXSLbNTCtJKPmHJCzAIFzLI9RDjXrDCLjVCUcKcddZCGqNPQayb7BJGWmSKBtCqP4CoPyUDJyNSBn HQslYUUeUUU3JZl6RWDvHITnGP7BKzTkKTLyUPR1EFGgVFLvRQFrnz2QGJCpHLEeNDR6GhQaSATaQGFw XVuaSTAkVGK9RLZfNFSpHGPhEK1EMeEiYAUcQXE8BK BzHEInEHHnur1RWHJdJGEjUvtuLqGjVQWxVNApUAwfSXSlMYS0ZRJ4ORCvSPTqLC2CUjWjYAKnXLmxDR IhKNUlTNKprl0NEWFrCCMdPQHoEoXrOPRwFQGlLUjbLJPxKMZ4PTL1BJVhCPKfZK1GMiBpTTKhBxvuRF JrTWKqCKGruz6AWTStQRQgFAJkBoUpDBImCUXjTWnr JBLmMHZ3SLTtPMShLBFvKH0YAlDvRLFjHpJxZCDfQVJeMRReqr8VIYWnCPAiJVD4RSXjOGRhKGMjNFit ODGxFXFaRjHsNDZiIBMwAB7XIbEcHWAuEzP2NWJmTBRfHLXmqn5ALQBhQJFvHJa1YVYbYMFfLUOdZBsj FUUzNDUqNNmdMXUgVAVzDB3PPlEiMRSlQpR5WDPnBI HeTJNwcj8IVVBmRSJuRbo2GDPbBAXmMGKkNDfwBTJzIFX9RDHzEYWkVDUlTX8BSdJlKWJtWyNqRwCzTK QhEEZlzk6IfTFdwIpzov4CGNbRGd0NtPueNHR4QDiwZw9sgDKyAkHfMDJJEr0YgdOvLLTiPHOLNMypBN FrSUGzE1XpEXX1RJQzRHXnOwdmJhxmNZG7VJGgMyG6 XPtpVdL5U3YfOVUyXduyKuXcYQGsABFrXRS4LPrkBVH7QqBqFVK+GY0pMRt+Du4Kp5JuvwZ5asObILru [id number]== Procedure Social History Code Duration Value Status Description Data Source(s ) Smoking 12/23/2020 12:00:00 AM EDT Patient has never smoked co mpleted Patient has never smoked [facility] ([facility]) Alcohol intake 10/19/2020 12:00:00 AM EDT Current non-d kayley of alcohol (finding) completed Current non-drinker of alcohol (finding) [facility] Tobacco use and exposure 10/19/2020 12:00:00 AM EDT Never used co mpleted Never used [facility] Cigarette pack-years 10/19/2020 12:00:00 AM EDT UNK completed [facility] Cigarettes smoked current (pack per day) - Reported 10/20/19 12:00:00 AM EDT UNK completed [facility] Smoking 10/19/2020 12:00:00 AM EDT Former smoker completed Former smoker [facility] Alcohol intake 09/02/2020 12:00:00 AM EDT Current non-d kayley of alcohol (finding) completed Current non-drinker of alcohol (finding) [facility] Smoking 08/18/2020 12:00:00 AM EDT Patient is a former smoker completed Patient is a former smoker [facility] ([facility], ) Alcohol intake 07/01/2020 12:00:00 AM EDT Current non-d kayley of alcohol (finding) completed Current non-drinker of alcohol (finding) [facility] Smoking 04/07/2020 12:00:00 AM EST Never Smoker completed Never S moker [email or web address] ([facility]) Alcohol intake 04/02/2020 12:00:00 AM EST Current non-d kayley of alcohol (finding) completed Current non-drinker of alcohol (finding) [facility] Smoking 12/18/2019 12:00:00 AM EDT Never Smoker completed Never S moker [email or web address] ([facility]) Smoking 12/18/2019 12:00:00 AM EDT Never Smoker completed Never S moker [email or web address] ([facility]) Vital Signs ID Date Data Source UNK Name Value Range Interpretation Code Description Data Source(s) Body height 64 [in_i] 64 [in_i] [facility] ([facility]) 5'4" Body weight 159.25 [lb_av] 159.25 [lb_av] [facility] T ([facility]) Body mass index (BMI) [Ratio] 27.3 kg/m2 27.3 k g/m2 [facility] ([facility]) Heart rate 84 /min 84 /min [facility] ([facility]) Respiratory rate 18 /min 18 /min [facility] ( [facility]) Body temperature 98.1 [degF] 98.1 [degF] [facility] ([facility]) Oxygen saturation in Arterial blood by Pulse oximetry 97 % 97 % [facility] ([facility]) [place] body weight 130 [lb_av] 130 [lb_av] [facility] T ([facility]) Diastolic blood pressure 64 mm[Hg] 64 mm[Hg] [facility] Systolic blood pressure 126 mm[Hg] 126 mm[Hg] [facility]) Body weight 157.38 [lb_av] 157.38 [lb_av] [facility] T ([facility], ) Systolic blood pressure 132 mm[Hg] 132 mm[Hg] M ALFONSO ([facility], ) Diastolic blood pressure 64 mm[Hg] 64 mm[Hg] [facility] ([facility], ) Body temperature 98.4 [degF] 98.4 [degF] [facility] ([facility]) Body height 66 [in_i] 66 [in_i] [facility] ([facility]) 5'6" Body mass index (BMI) [Ratio] 25.4 kg/m2 25.4 k g/m2 [facility] ([facility]) [place] body weight 142 [lb_av] 142 [lb_av] [facility] ([facility]) Body weight 71.385 kg 71.385 kg [facility] ([facility]) Body surface area Derived from formula 1.81 m2 1.81 m2 [facility] ([facility]) [place] body weight 142 [lb_av] 142 [lb_av] [facility] ([facility]) Body height 66 [in_i] 66 [in_i] [facility] ([facility]) 5'6" Body weight 155.00 [lb_av] 155.00 [lb_av] [facility] ([facility]) Body mass index (BMI) [Ratio] 25.0 kg/m2 25.0 k g/m2 [facility] ([facility]) Body weight 70.308 kg 70.308 kg [facility] ([facility]) Body surface area Derived from formula 1.79 m2 1.79 m2 [facility] ([facility]) Systolic blood pressure 124 mm[Hg] 124 mm[Hg] [facility]) Diastolic blood pressure 69 mm[Hg] 69 mm[Hg] [facility] ([facility]) Diastolic blood pressure 78 mm[Hg] 78 mm[Hg] [facility] ([facility]) Systolic blood pressure 130 mm[Hg] 130 mm[Hg] [facility] Body height 64 [in_i] 64 [in_i] [facility] ([facility]) 5'4" Body weight 157.38 [lb_av] 157.38 [lb_av] [facility] T ([facility]) Body mass index (BMI) [Ratio] 27.0 kg/m2 27.0 k g/m2 [facility] ([facility]) Heart rate 68 /min 68 /min [facility] ([facility]) Respiratory rate 14 /min 14 /min [facility] ( [facility]) Body temperature 98.1 [degF] 98.1 [degF] [facility] ([facility]) Oxygen saturation in Arterial blood by Pulse oximetry 98 % 98 % [facility] [place] body weight 130 [lb_av] 130 [lb_av] [facility] ([facility]) [place] body weight 142 [lb_av] 142 [lb_av] [facility] ([facility]) Body weight 71.385 kg 71.385 kg [facility] ([facility]) Body surface area Derived from formula 1.81 m2 1.81 m2 [facility] ([facility]) Body height 66 [in_i] 66 [in_i] [facility] ([facility]) 5'6" Body weight 157.38 [lb_av] 157.38 [lb_av] [facility] ([facility]) Body mass index (BMI) [Ratio] 25.4 kg/m2 25.4 k g/m2 [facility] ([facility]) Systolic blood pressure 90 mm[Hg] 90 mm[facility] Diastolic blood pressure 50 mm[Hg] 50 mm[Hg] [facility] ([facility]) Body height 66 [in_i] 66 [in_i] [facility] ([facility]) 5'6" Body weight 157.38 [lb_av] 157.38 [lb_av] [facility] ([facility]) Body mass index (BMI) [Ratio] 25.4 kg/m2 25.4 k g/m2 [facility] ([facility]) [place] body weight 142 [lb_av] 142 [lb_av] [facility] ([facility]) Body weight 71.385 kg 71.385 kg [facility] [facility] ([facility]) Body surface area Derived from formula 1.81 m2 1.81 m2 [facility] ([facility]) Heart rate 93 /min 93 /min [facility] ([facility]) Body weight 70.818 kg 70.818 kg [facility] ([facility]) Body surface area Derived from formula 1.80 m2 1.80 m2 [facility] ([facility]) Diastolic blood pressure 75 mm[Hg] 75 mm[Hg] [facility] ([facility]) Systolic blood pressure 138 mm[Hg] 138 mm[Hg] [facility] ([facility]) Body height 66 [in_i] 66 [in_i] [facility] ([facility]) 5'6" Body weight 156.12 [lb_av] 156.12 [lb_av] [facility] ([facility]) Body mass index (BMI) [Ratio] 25.2 kg/m2 25.2 k g/m2 [facility] ([facility]) [place] body weight 142 [lb_av] 142 [lb_av] [facility] ([facility]) Respiratory rate 14 /min 14 /min [facility] ( [facility]) Body temperature 98.7 [degF] 98.7 [degF] [facility] ([facility]) Oxygen saturation in Arterial blood by Pulse oximetry 97 % 97 % [facility] ([facility]) [place] body weight 130 [lb_av] 130 [lb_av] [facility] ([facility]) Systolic blood pressure 120 mm[Hg] 120 mm[Hg] [facility] ([facility]) Body height 64 [in_i] 64 [in_i] [facility] ([facility]) 5'4" Body weight 157.50 [lb_av] 157.50 [lb_av] [facility] ([facility]) Body mass index (BMI) [Ratio] 27.0 kg/m2 27.0 k g/m2 [facility] ([facility]) Heart rate 84 /min 84 /min [facility] ([facility]) Diastolic blood pressure 72 mm[Hg] 72 mm[Hg] [facility] ([facility]) Systolic blood pressure 158 mm[Hg] 158 mm[Hg] [facility] ([facility]) Diastolic blood pressure 78 mm[Hg] 78 mm[Hg] [facility] ([facility]) Body surface area Derived from formula 1.80 m2 1.80 m2 [facility] ([facility]) Body height 66 [in_i] 66 [in_i] [facility] ([facility]) 5'6" Body weight 155.38 [lb_av] 155.38 [lb_av] [facility] ([facility]) Body mass index (BMI) [Ratio] 25.1 kg/m2 25.1 k g/m2 [facility] ([facility]) [place] body weight 142 [lb_av] 142 [lb_av] [facility] ([facility]) Body weight 70.478 kg 70.478 kg [facility] ([facility]) Body weight 155.2 [lb_av] 155.2 [lb_av] eCW1 ([facility]) Body height 67 [in_i] 67 [in_i] eCW1 ([facility]) Body mass index (BMI) [Ratio] 24.31 kg/m2 24.31 kg/m2 eCW1 ([facility]) Systolic blood pressure 140 mm[Hg] 140 mm[Hg] e CW1 ([facility]) Diastolic blood pressure 84 mm[Hg] 84 mm[Hg] eCW1 ([facility]) [place] body weight 142 [lb_av] 142 [lb_av] [facility] ([facility]) Body weight 72.349 kg 72.349 kg [facility] ([facility]) Body surface area Derived from formula 1.82 m2 1.82 m2 [facility] ([facility]) Systolic blood pressure 152 mm[Hg] 152 mm[Hg] [facility] ([facility]) Diastolic blood pressure 78 mm[Hg] 78 mm[Hg] [facility] ([facility]) Body height 66 [in_i] 66 [in_i] [facility] ([facility]) 5'6" Body weight 159.50 [lb_av] 159.50 [lb_av] [facility] ([facility]) Body mass index (BMI) [Ratio] 25.7 kg/m2 25.7 k g/m2 [facility] ([facility]) Systolic blood pressure 184 mm[Hg] 184 mm[Hg] [facility] ([facility]) Diastolic blood pressure 72 mm[Hg] 72 mm[Hg] [facility] ([facility]) Body height 66 [in_i] 66 [in_i] [facility] ([facility]) 5'6" Body weight 157.50 [lb_av] 157.50 [lb_av] [facility] Body mass index (BMI) [Ratio] 25.4 kg/m2 25.4 k g/m2 [facility] ([facility]) [place] body weight 142 [lb_av] 142 [lb_av] [facility] Body weight 71.442 kg 71.442 kg [facility] ([facility]) Body surface area Derived from formula 1.81 m2 1.81 m2 [facility] ([facility]) Body weight 159 [lb_av] 159 [lb_av] eCW1 ([facility]) Body height 67 [in_i] 67 [in_i] eCW1 ([facility]) Diastolic blood pressure 78 mm[Hg] 78 mm[Hg] eCW1 ([facility]) Body mass index (BMI) [Ratio] 24.90 kg/m2 24.90 kg/m2 eCW1 ([facility]) Systolic blood pressure 142 mm[Hg] 142 mm[Hg] e CW1 ([facility]) ID Date Data Source [id number] 10/22/2020 01:00:16 PM EDT [facility] Name Value Range Interpretation Code Description Data Source(s) WEIGHT RECORDED 156.4 lb 156.4 lb [facility] WEIGHT RECORDED 156.4 lb 156.4 lb [facility] ID Date Data Source [id number] 07/01/2020 04:30:16 PM [facility] Name Value Range Interpretation Code Description Data Source(s) WEIGHT RECORDED 152 lb 152 lb [facility] ID Date Data Source [id number] 04/11/2020 11:43:58 AM [facility] Name Value Range Interpretation Code Description Data Source(s) WEIGHT RECORDED 152 lb 152 lb [facility] Patient Treatment Plan of Care Planned Activity Planned Date Details Description Data Source (s) Acetaminophen 325 MG Oral Tablet 10/19/2020 11:45:00 AM [facility] Oxycodone Hydrochloride 5 MG Oral Tablet 10/19/2020 11:40:10 AM [facility] fentaNYL (SUBLIMAZE) (PF) injection 12.5 mcg 10/19/2020 11:23:51 AM [facility] fentaNYL (SUBLIMAZE) (PF) injection 25 mcg 10/19/2020 11:23:51 AM [facility] sodium chloride (preservative free) 0.9 % flush 3 mL 021 08:14:01 AM [facility] sodium chloride (preservative free) 0.9 % flush 3 mL 021 08:14:01 AM [facility] Acetaminophen 325 MG Oral Tablet 10/19/2020 12:00:00 AM [facility] sodium chloride 0.9 % SOLN 100 mL with iron sucrose 20 MG/ML SOLN 09/17/2020 12:00:[address] [facility] Acetaminophen 325 MG / Oxycodone Hydrochloride 5 MG Or al Tablet 08/05/2020 12:00:[address] [facility] Amlodipine 5 MG Oral Tablet 07/26/2020 12:00:00 AM [facility] Lisinopril 20 MG Oral Tablet 06/30/2020 12:00:00 AM [facility] sevelamer carbonate 800 MG Oral Tablet 06/23/2020 12:00:00 AM [facility] Lisinopril 10 MG Oral Tablet 03/26/2020 12:00:00 AM [facility] carvedilol 6.25 MG Oral Tablet 12/12/2019 12:00:00 AM [facility]
[2021-01-11] MEDS ORDERED: LIDOCAINE 2% 100MG/5ML SDV (FOR ANES.) As Ordered ONE (08:13)
[2021-01-11] MEDS ORDERED: MIDAZOLAM INJ 2MG/2ML VIAL (J2250 PER 1MG) As Ordered ONE (08:13)
[2021-01-11] MEDS ORDERED: propofoL 500 MG/50 ML VIAL As Ordered ONE (08:13)
[2021-01-11] MEDS ORDERED: HEPARIN SOD (PORCINE) 5000UNITS/ML 1ML VIAL/SYRINGE As Ordered ONE (08:14)
[2021-01-11] MEDS ORDERED: fentaNYL 100 MCG/2 ML INJECTION (J3010) As Ordered ONE (08:14)
[2021-01-11] MEDS ORDERED: LIDOCAINE 1% SDV 30ML VIAL As Ordered ONE (08:14)
[2021-01-11] MEDS ORDERED: ROCURONIUM BROMIDE 50 MG/5 ML VIAL As Ordered ONE (08:26)
[2021-01-11] MEDS ORDERED: PHENYLephrine 500MCG 5ML (100MCG/ML) SYRINGE As Ordered ONE ×2 (09:28→10:28)
[2021-01-11 10:31] VITALS: BP 137/87
--- NOTE | 2021-01-11 11:52 | RO ---
OPERATIVE NOTE DATE OF OPERATION: 01/11/2021 PREOPERATIVE DIAGNOSIS: End-stage renal disease on hemodialysis. POSTOPERATIVE DIAGNOSIS: End-stage renal disease on hemodialysis. PROCEDURE PERFORMED: Implantation of continuous ambulatory peritoneal dialysis catheter. SURGEON: Jimmy Stallworth MD [employer]ER: ANESTHESIA: Local of 1% Xylocaine with monitored anesthesia care. INDICATIONS FOR THE PROCEDURE: The patient is a 65-year-old man with end-stage renal disease who has been on hemodialysis. He would now like to convert to peritoneal dialysis and is now for placement of continuous ambulatory peritoneal dialysis catheter. DESCRIPTION OF PROCEDURE: The patient was brought to the operating room and placed on the table in the supine position. He received sedation from anesthesia. The patient's abdomen was prepped and draped in sterile fashion. The site was selected in the left upper quadrant for placement of the catheter. 1% Xylocaine was infiltrated as needed. An approximately 3-4 cm longitudinal paramedian incision was made in the left upper quadrant. This was deepened through the anterior rectus sheath. The rectus muscle fibers were and retracted. A small opening was made through the posterior rectus sheath and peritoneum. A pursestring suture of 2-0 Vicryl was placed. The patient was placed into slight Trendelenburg position. The 62 cm double pledgeted pigtail dialysis catheter was flushed with saline and placed onto a long stylet. The inferior edge of the peritoneal opening was elevated and catheter was inserted and advanced into the pelvis along the posterior aspect of the anterior abdominal wall. The catheter was the slipped off the stylet. The inner pledget was placed just outside the peritoneum. Pursestring suture was tied down and then tied about the inner pledget to prevent withdrawal. The rectus muscles were allowed to fall back together and the anterior sheath was closed with running suture of 1-0 Vicryl. The catheter was tunneled through the subcutaneous tissues to exit through a small stab incision slightly lower in the left upper quadrant. The infusion hub of the catheter was then attached. This was connected to 1 liter of normal saline to be infused through tubing. The patient was tilted to a slight reverse Trendelenburg position and the inflow of fluid was started. While the fluid was flowing, the paramedian incision was closed with some buried 3-0 chromic and running subcuticular 4-0 Vicryl. After nearly the entire liter of fluid had infused the bag was dropped and by simple gravity siphon approximately 700-800 mL of the liter of fluid returned. There was no significant blood identified. The catheter was then filled with 1 mL of 5000 units per mL Heparin and approximately 1.3 mL of sterile saline. A small clamp was applied to the catheter and the catheter was then plugged. The incision was dressed with Steri-Strips. A CHG OPSITE was placed over the catheter exit site and the catheter was then coiled on top of the OPSITE, covered with sponges and held in place with tape. The patient tolerated the procedure well without apparent complication. He was awakened and transported to the advanced recovery area in stable condition.
== END 2021-01-11 11:00 | disposition home or self-care (01) ==
LOC: M SDC 06:29
PROVIDERS: ATTEND Surgery
DX: N18.6 End stage renal disease (principal); Z99.2 Dependence on renal dialysis; N04.2 Nephrotic syndrome with diffuse membranous glomerulonephritis; I15.0 Renovascular hypertension; J45.909 Unspecified asthma, uncomplicated; E78.5 Hyperlipidemia, unspecified; E78.00 Pure hypercholesterolemia, unspecified; F32.9 Major depressive disorder, single episode, unspecified; E03.9 Hypothyroidism, unspecified; C85.90 Non-Hodgkin lymphoma, unspecified, unspecified site; Z85.22 Personal history of malignant neoplasm of nasal cavities, middle ear, and accessory sinuses; Z92.21 Personal history of antineoplastic chemotherapy; K21.9 Gastro-esophageal reflux disease without esophagitis; F41.9 Anxiety disorder, unspecified; Z87.891 Personal history of nicotine dependence; Z79.899 Other long term (current) drug therapy; Z79.82 Long term (current) use of aspirin; Z79.51 Long term (current) use of inhaled steroids
CPT/HCPCS: 36415; 49421; 84132; C1750; J0690; J1644; J2250; J2370; J3010

== ENCOUNTER → 2021-03-07 | Outpatient (CLI) | payer MEDICARE, OTHER ==
[~2021-03-07] MED LIST changes: -D5W/0.2% SODIUM CHLORIDE 1,000 ML IV ONE; -LISI20TA33; +LISI20TA33 PO; -ceFAZolin SOD 2 GM in IV 1 EA IV ONE; +inhaler INH
== END ==
LOC: M LABSMTC 11:48
PROVIDERS: ATTEND Anesthesiology
DX: Z01.818 Encounter for other preprocedural examination (principal); Z11.52 Encounter for screening for COVID-19

== ENCOUNTER 2021-03-10 09:08 | Day surgery (SDC) | payer MEDICARE, OTHER ==
[~2021-03-10] VITALS: Ht 167.6 cm; Wt 70.2 kg
[~2021-03-10 09:08] MED LIST changes: +NS 1,000 ML IV ONE
[2021-03-10] MEDS ORDERED: propofoL 200 MG/20 ML VIAL As Ordered ONE (11:42)
[2021-03-10] MEDS ORDERED: LIDOCAINE 2% 100MG/5ML SDV (FOR ANES.) As Ordered ONE (11:42)
[2021-03-10 12:00] VITALS: BP 161/77
== END 2021-03-10 13:00 | disposition home or self-care (01) ==
LOC: M OPP 09:08
PROVIDERS: ATTEND Internal Medicine Gastroenterology
DX: K92.1 Melena (principal); D49.0 Neoplasm of unspecified behavior of digestive system; C85.10 Unspecified B-cell lymphoma, unspecified site; Z86.010 Personal history of colon polyps; Z79.82 Long term (current) use of aspirin; Z79.899 Other long term (current) drug therapy; Z92.21 Personal history of antineoplastic chemotherapy

== ENCOUNTER → 2021-03-11 | Outpatient (CLI) | payer MEDICARE, OTHER ==
[~2021-03-11] MED LIST changes: -NS 1,000 ML IV ONE
[2021-03-11 15:45] LABS: BASO % 0.6 % (0.0-1.0); EOS # 0.3 10^3/uL (0.0-0.5); EOS % 3.5 % (0.0-3.0); HEMATOCRIT 33.2 % (42.0-52.0); HEMOGLOBIN 10.6 g/dl (13.5-17.5); LYMPH # 0.8 10^3/uL (1.5-5.0); LYMPH % 11.6 % (24.0-44.0); MEAN CORPUSCULAR HEMOGLOBIN 33.3 pg (27.0-33.0); MEAN CORPUSCULAR HGB CONC 31.9 g/dl (32.0-36.5); MEAN CORPUSCULAR VOLUME 104.4 fl (80.0-96.0); MONO # 0.8 10^3/uL (0.0-0.8); MONO % 10.7 % (2.0-8.0); NEUTROPHILS # 5.3 10^3/uL (1.5-8.5); NEUTROPHILS % 73.3 % (36.0-66.0); PLATELET COUNT, AUTOMATED 181 10^3/uL (150-450); RED BLOOD COUNT 3.18 10^6/uL (4.30-6.10); WHITE BLOOD COUNT 7.2 10^3/uL (4.0-10.0)
[2021-03-11 16:02] LABS: CREATININE FOR GFR 11.9 MG/DL (0.70-1.30); GLOMERULAR FILTRATION RATE 4.6 (>49); POTASSIUM SERUM 5.1 MEQ/L (3.5-5.1)
[2021-03-11 16:03] LABS: ALBUMIN 3.2 GM/DL (3.2-5.2); BILIRUBIN,TOTAL 0.2 MG/DL (0.2-1.0); CALCIUM LEVEL 8.5 MG/DL (8.8-10.2); TOTAL PROTEIN 5.8 GM/DL (6.4-8.2)
== END ==
LOC: M PLALAB 14:24
PROVIDERS: ATTEND Physician Assistant
DX: C83.11 Mantle cell lymphoma, lymph nodes of head, face, and neck (principal)

== ENCOUNTER → 2021-03-29 | Outpatient (POV) | payer MEDICARE, OTHER ==
[~2021-03-29] VITALS: Ht 167.6 cm; Wt 69.5 kg
[2021-03-29 10:45] VITALS: BP 168/79
== END ==
LOC: M IRPOV 10:38
PROVIDERS: ATTEND Radiology Diagnostic Radiology
DX: Z45.2 Encounter for adjustment and management of vascular access device (principal)

== ENCOUNTER → 2021-04-04 | Outpatient (CLI) | payer MEDICARE, OTHER ==
[~2021-04-04] MED LIST changes: +LIDOCAINE 1% MDV 20ML VIAL As Ordered ONE; +LIDOCAINE W/EPINEPHRINE 1% 20ML VIAL As Ordered ONE
[2021-04-04 10:15] VITALS: BP 172/71
== END ==
LOC: M IRPRO 09:19
PROVIDERS: ATTEND Radiology Diagnostic Radiology
DX: Z45.2 Encounter for adjustment and management of vascular access device (principal); Z99.2 Dependence on renal dialysis

== ENCOUNTER → 2021-11-02 | Outpatient (CLI) | payer MEDICARE, OTHER ==
[~2021-11-02] MED LIST changes: +FEXO-117 PO; -FEXO180T58 PO; -LIDOCAINE 1% MDV 20ML VIAL As Ordered ONE; -LIDOCAINE W/EPINEPHRINE 1% 20ML VIAL As Ordered ONE
[2021-11-02 10:15] LABS: BASO # 0.1 10^3/uL (0.0-0.2); EOS # 0.8 10^3/uL (0.0-0.5); HEMATOCRIT 32.7 % (42.0-52.0); HEMOGLOBIN 10.2 g/dl (13.5-17.5); LYMPH # 0.7 10^3/uL (1.5-5.0); LYMPH % 7.8 % (24.0-44.0); MEAN CORPUSCULAR HEMOGLOBIN 32.4 pg (27.0-33.0); MEAN CORPUSCULAR HGB CONC 31.2 g/dl (32.0-36.5); MEAN CORPUSCULAR VOLUME 103.8 fl (80.0-96.0); MONO # 0.8 10^3/uL (0.0-0.8); MONO % 9.7 % (2.0-8.0); NEUTROPHILS # 6.2 10^3/uL (1.5-8.5); PLATELET COUNT, AUTOMATED 302 10^3/uL (150-450); RED BLOOD COUNT 3.15 10^6/uL (4.30-6.10); WHITE BLOOD COUNT 8.6 10^3/uL (4.0-10.0)
[2021-11-02 11:28] LABS: ALBUMIN 2.7 GM/DL (3.2-5.2); BILIRUBIN,TOTAL 0.4 MG/DL (0.2-1.0); CALCIUM LEVEL 8.4 MG/DL (8.8-10.2); CHOLESTEROL RISK RATIO 3.117 (<5); CREATININE FOR GFR 9.31 MG/DL (0.70-1.30); FREE T4 0.66 NG/DL (0.76-1.46); POTASSIUM SERUM 5.3 MEQ/L (3.5-5.1); THYROID STIMULATING HORMONE 3.23 uIU/ML (0.358-3.740); TOTAL PROTEIN 5.4 GM/DL (6.4-8.2)
== END ==
LOC: M LAB 09:36
PROVIDERS: ATTEND Family Medicine
DX: N18.6 End stage renal disease (principal); E78.5 Hyperlipidemia, unspecified

== ENCOUNTER → 2022-03-20 | Outpatient (CLI) | payer MEDICARE, OTHER ==
[2022-03-20 16:02] LABS: BASO # 0.1 10^3/uL (0.0-0.2); EOS # 0.3 10^3/uL (0.0-0.5); EOS % 3.7 % (0.0-3.0); HEMATOCRIT 36.6 % (42.0-52.0); HEMOGLOBIN 11.2 g/dl (13.5-17.5); LYMPH # 3.9 10^3/uL (1.5-5.0); MEAN CORPUSCULAR HEMOGLOBIN 32.6 pg (27.0-33.0); MEAN CORPUSCULAR HGB CONC 30.6 g/dl (32.0-36.5); MEAN CORPUSCULAR VOLUME 106.4 fl (80.0-96.0); MONO # 0.8 10^3/uL (0.0-0.8); MONO % 8.8 % (2.0-8.0); NEUTROPHILS # 3.9 10^3/uL (1.5-8.5); NEUTROPHILS % 43.3 % (36.0-66.0); PLATELET COUNT, AUTOMATED 185 10^3/uL (150-450); RED BLOOD COUNT 3.44 10^6/uL (4.30-6.10); WHITE BLOOD COUNT 9.1 10^3/uL (4.0-10.0)
[2022-03-20 16:46] LABS: ALBUMIN 3.2 G/DL (3.2-5.2); ALKALINE PHOSPHATASE 72 U/L (46-116); ALT/SGPT 41 U/L (7.0-40); AST/SGOT 26 U/L (<34); BILIRUBIN,TOTAL < 0.2 MG/DL (0.3-1.2); BLOOD UREA NITROGEN 68 MG/DL (9-23); CALCIUM LEVEL 8.9 MG/DL (8.3-10.6); CARBON DIOXIDE LEVEL 24 MMOL/L (20-31); CHLORIDE LEVEL 111 MMOL/L (98-107); GLOMERULAR FILTRATION RATE 5.8 (>49); GLUCOSE, FASTING 78 MG/DL (74-106); POTASSIUM SERUM 5.2 MMOL/L (3.5-5.1); SODIUM LEVEL 142 MMOL/L (136-145); TOTAL PROTEIN 5.3 G/DL (5.7-8.2)
== END ==
LOC: M LAB 15:08
PROVIDERS: ATTEND Physician Assistant
DX: C83.11 Mantle cell lymphoma, lymph nodes of head, face, and neck (principal)

== ENCOUNTER → 2022-04-09 | Outpatient (CLI) | payer MEDICARE, OTHER ==
[2022-04-09 15:50] LABS: BASO # 0.1 10^3/uL (0.0-0.2); BASO % 1.1 % (0.0-1.0); EOS # 0.4 10^3/uL (0.0-0.5); EOS % 4.1 % (0.0-3.0); HEMATOCRIT 38.2 % (42.0-52.0); LYMPH # 2.9 10^3/uL (1.5-5.0); LYMPH % 32.4 % (24.0-44.0); MEAN CORPUSCULAR HEMOGLOBIN 33.5 pg (27.0-33.0); MEAN CORPUSCULAR HGB CONC 31.4 g/dl (32.0-36.5); MEAN CORPUSCULAR VOLUME 106.7 fl (80.0-96.0); MONO # 0.8 10^3/uL (0.0-0.8); MONO % 9.2 % (2.0-8.0); NEUTROPHILS # 4.8 10^3/uL (1.5-8.5); NEUTROPHILS % 52.9 % (36.0-66.0); PLATELET COUNT, AUTOMATED 214 10^3/uL (150-450); RED BLOOD COUNT 3.58 10^6/uL (4.30-6.10)
[2022-04-09 16:27] LABS: ALBUMIN 3.3 G/DL (3.2-5.2); ALKALINE PHOSPHATASE 75 U/L (46-116); ALT/SGPT 21 U/L (7.0-40); AST/SGOT 24 U/L (<34); BILIRUBIN,TOTAL < 0.2 MG/DL (0.3-1.2); BLOOD UREA NITROGEN 73 MG/DL (9-23); CALCIUM LEVEL 8.3 MG/DL (8.3-10.6); CARBON DIOXIDE LEVEL 23 MMOL/L (20-31); CHLORIDE LEVEL 109 MMOL/L (98-107); CREATININE FOR GFR 9.65 MG/DL (0.70-1.30); GLOMERULAR FILTRATION RATE 5.8 (>49); GLUCOSE, FASTING 100 MG/DL (74-106); POTASSIUM SERUM 5.2 MMOL/L (3.5-5.1); SODIUM LEVEL 140 MMOL/L (136-145); TOTAL PROTEIN 5.6 G/DL (5.7-8.2)
== END ==
LOC: M LAB 14:48
PROVIDERS: ATTEND Physician Assistant
DX: C83.11 Mantle cell lymphoma, lymph nodes of head, face, and neck (principal)

== ENCOUNTER → 2022-05-23 | Outpatient (CLI) | payer MEDICARE, OTHER ==
[2022-05-23 13:40] LABS: BASO # 0.1 10^3/uL (0.0-0.2); BASO % 1.5 % (0.0-1.0); EOS # 0.4 10^3/uL (0.0-0.5); EOS % 4.9 % (0.0-3.0); HEMATOCRIT 43.1 % (42.0-52.0); HEMOGLOBIN 13.7 g/dl (13.5-17.5); LYMPH # 1.8 10^3/uL (1.5-5.0); LYMPH % 22.7 % (24.0-44.0); MEAN CORPUSCULAR HEMOGLOBIN 35.3 pg (27.0-33.0); MEAN CORPUSCULAR HGB CONC 31.8 g/dl (32.0-36.5); MEAN CORPUSCULAR VOLUME 111.1 fl (80.0-96.0); MONO # 0.8 10^3/uL (0.0-0.8); MONO % 10.6 % (2.0-8.0); NEUTROPHILS # 4.7 10^3/uL (1.5-8.5); NEUTROPHILS % 59.9 % (36.0-66.0); PLATELET COUNT, AUTOMATED 183 10^3/uL (150-450); RED BLOOD COUNT 3.88 10^6/uL (4.30-6.10); WHITE BLOOD COUNT 7.8 10^3/uL (4.0-10.0)
[2022-05-23 14:49] LABS: ALBUMIN 3.7 G/DL (3.2-5.2); BILIRUBIN,TOTAL 0.4 MG/DL (0.3-1.2); CALCIUM LEVEL 9.2 MG/DL (8.3-10.6); CREATININE FOR GFR 9.93 MG/DL (0.70-1.30); GLOMERULAR FILTRATION RATE 5.6 (>49); POTASSIUM SERUM 5.2 MMOL/L (3.5-5.1); TOTAL PROTEIN 5.9 G/DL (5.7-8.2)
== END ==
LOC: M PLALAB 09:54
PROVIDERS: ATTEND Internal Medicine Hematology & Oncology
DX: C83.11 Mantle cell lymphoma, lymph nodes of head, face, and neck (principal)

== ENCOUNTER → 2022-08-31 | Outpatient (CLI) | payer MEDICARE, OTHER ==
[2022-08-31 16:20] LABS: BASO # 0.1 10^3/uL (0.0-0.2); BASO % 0.8 % (0.0-1.0); EOS # 0.2 10^3/uL (0.0-0.5); EOS % 3.6 % (0.0-3.0); HEMATOCRIT 41.9 % (42.0-52.0); LYMPH % 15.7 % (24.0-44.0); MEAN CORPUSCULAR HEMOGLOBIN 37.7 pg (27.0-33.0); MEAN CORPUSCULAR HGB CONC 33.4 g/dl (32.0-36.5); MEAN CORPUSCULAR VOLUME 112.9 fl (80.0-96.0); MONO # 0.6 10^3/uL (0.0-0.8); NEUTROPHILS # 4.3 10^3/uL (1.5-8.5); NEUTROPHILS % 69.6 % (36.0-66.0); PLATELET COUNT, AUTOMATED 185 10^3/uL (150-450); RED BLOOD COUNT 3.71 10^6/uL (4.30-6.10); WHITE BLOOD COUNT 6.1 10^3/uL (4.0-10.0)
[2022-08-31 16:37] LABS: LDH LACTATE DEHYDROGENASE 249 U/L (120-246)
[2022-08-31 16:45] LABS: ALBUMIN 3.6 G/DL (3.2-5.2); ALKALINE PHOSPHATASE 73 U/L (46-116); ALT/SGPT 40 U/L (7.0-40); AST/SGOT < 8 U/L (<34); BILIRUBIN,TOTAL 0.3 MG/DL (0.3-1.2); BLOOD UREA NITROGEN 97 MG/DL (9-23); CALCIUM LEVEL 8.5 MG/DL (8.3-10.6); CARBON DIOXIDE LEVEL 28 MMOL/L (20-31); CHLORIDE LEVEL 107 MMOL/L (98-107); CREATININE FOR GFR 9.83 MG/DL (0.70-1.30); GLOMERULAR FILTRATION RATE 5.7 (>49); GLUCOSE, FASTING 102 MG/DL (74-106); POTASSIUM SERUM 4.9 MMOL/L (3.5-5.1); SODIUM LEVEL 141 MMOL/L (136-145); TOTAL PROTEIN 5.5 G/DL (5.7-8.2)
== END ==
LOC: M PLALAB 13:10
PROVIDERS: ATTEND Nurse Practitioner Family
DX: C83.11 Mantle cell lymphoma, lymph nodes of head, face, and neck (principal)

== ENCOUNTER → 2023-01-05 | Outpatient (CLI) | payer MEDICARE, OTHER ==
[2023-01-05 17:55] LABS: CHOLESTEROL RISK RATIO 4.59 (<5); HDL CHOLESTEROL 40.9 MG/DL (>40); LDL CHOLESTEROL 82.9 MG/DL (<100); NON-HDL-C 147.1 MG/DL
== END ==
LOC: M WUC 13:09
PROVIDERS: ATTEND Family Medicine
DX: R35.0 Frequency of micturition (principal); E78.5 Hyperlipidemia, unspecified; Z12.5 Encounter for screening for malignant neoplasm of prostate
CPT/HCPCS: 36415; 80061; G0103

== ENCOUNTER → 2023-05-11 | Outpatient (CLI) | payer MEDICARE, OTHER ==
[~2023-05-11] MED LIST changes: -ALLE1TAB23 PO; +BACT400T PO; +DOXY-444 PO; +FEXO-157 PO; +LASI80TA3 PO; +TUMS750C5 PO; +VALA500T5 PO
[2023-05-11 11:53] LABS: BASO # 0.1 10^3/uL (0.0-0.2); BASO % 0.5 % (0.0-1.0); EOS # 0.3 10^3/uL (0.0-0.5); EOS % 1.9 % (0.0-3.0); HEMATOCRIT 43.2 % (42.0-52.0); HEMOGLOBIN 14.2 g/dl (13.5-17.5); LYMPH # 0.7 10^3/uL (1.5-5.0); LYMPH % 4.3 % (24.0-44.0); MEAN CORPUSCULAR HEMOGLOBIN 36.9 pg (27.0-33.0); MEAN CORPUSCULAR HGB CONC 32.9 g/dl (32.0-36.5); MEAN CORPUSCULAR VOLUME 112.2 fl (80.0-96.0); MONO # 0.9 10^3/uL (0.0-0.8); MONO % 5.4 % (2.0-8.0); NEUTROPHILS # 14.5 10^3/uL (1.5-8.5); PLATELET COUNT, AUTOMATED 259 10^3/uL (150-450); RED BLOOD COUNT 3.85 10^6/uL (4.30-6.10); WHITE BLOOD COUNT 16.6 10^3/uL (4.0-10.0)
[2023-05-11 12:18] LABS: THYROID STIMULATING HORMONE 2.742 uIU/ML (0.55-4.78)
[2023-05-11 12:19] LABS: FREE T4 0.85 NG/DL (0.89-1.76)
[2023-05-11 13:28] LABS: ALBUMIN 2.7 G/DL (3.2-5.2); BILIRUBIN,TOTAL 0.3 MG/DL (0.3-1.2); CALCIUM LEVEL 8.1 MG/DL (8.3-10.6); CHOLESTEROL RISK RATIO 7.64 (<5); CREATININE FOR GFR 8.87 MG/DL (0.70-1.30); GLOMERULAR FILTRATION RATE 6.4 (>49); HDL CHOLESTEROL 15.3 MG/DL (>40); LDL CHOLESTEROL 59.1 MG/DL (<100); NON-HDL-C 101.7 MG/DL; POTASSIUM SERUM 3.8 MMOL/L (3.5-5.1); TOTAL PROTEIN 5.5 G/DL (5.7-8.2)
== END ==
LOC: M WUC 10:07
PROVIDERS: ATTEND Nurse Practitioner Adult Health
DX: I12.0 Hypertensive chronic kidney disease with stage 5 chronic kidney disease or end stage renal disease (principal); E78.5 Hyperlipidemia, unspecified; C83.11 Mantle cell lymphoma, lymph nodes of head, face, and neck

== ENCOUNTER 2023-05-15 18:41 | Emergency (ER) | payer MEDICARE, OTHER ==
[~2023-05-15] VITALS: Ht 170.2 cm; Wt 72.7 kg
[~2023-05-15 18:41] MED LIST changes: -BACT400T PO; -DOXY-444 PO; -LASI80TA3 PO; -TUMS750C5 PO; -VALA500T5 PO
[2023-05-15] MEDS ORDERED: LASI80TA3 PO (23:27)
[2023-05-15 23:37] LABS: BASO # 0.1 10^3/uL (0.0-0.2); BASO % 0.3 % (0.0-1.0); EOS % 0.2 % (0.0-3.0); LYMPH # 0.6 10^3/uL (1.5-5.0); LYMPH % 3.4 % (24.0-44.0); MEAN CORPUSCULAR HEMOGLOBIN 37.1 pg (27.0-33.0); MEAN CORPUSCULAR HGB CONC 33.3 g/dl (32.0-36.5); MEAN CORPUSCULAR VOLUME 111.4 fl (80.0-96.0); MONO # 0.7 10^3/uL (0.0-0.8); MONO % 3.5 % (2.0-8.0); NEUTROPHILS # 17.2 10^3/uL (1.5-8.5); NEUTROPHILS % 92.1 % (36.0-66.0); PLATELET COUNT, AUTOMATED 287 10^3/uL (150-450); RED BLOOD COUNT 3.77 10^6/uL (4.30-6.10); WHITE BLOOD COUNT 18.6 10^3/uL (4.0-10.0)
[2023-05-15] MEDS ORDERED: VALA500T5 PO (23:58)
[2023-05-16 00:04] LABS: ALBUMIN 3.1 G/DL (3.2-5.2); BILIRUBIN,DIRECT 0.1 MG/DL (<0.4); BILIRUBIN,TOTAL 0.3 MG/DL (0.3-1.2); CALCIUM LEVEL 8.3 MG/DL (8.3-10.6); CREATININE FOR GFR 8.91 MG/DL (0.70-1.30); GLOMERULAR FILTRATION RATE 6.3 (>49); POTASSIUM SERUM 4.6 MMOL/L (3.5-5.1); TOTAL PROTEIN 6.2 G/DL (5.7-8.2)
[2023-05-16] MEDS ORDERED: BACT400T PO (00:05)
[2023-05-16] MEDS ORDERED: TUMS750C5 PO (00:05)
[2023-05-16] MEDS ORDERED: DOXY-444 PO (00:05)
[2023-05-16] MEDS: MORPHINE 4 MG/ML 1ML VIAL IV ONE (00:57)
[2023-05-16 01:43] LABS: APPEARANCE, BODY FLUID CLEAR (CLEAR); ASCITES FL COLOR PALE YELLOW (COLORLESS); SOURCE, BODY FLUID ASCITES
[2023-05-16 02:30] VITALS: BP 123/68; TEMP 98.6
[2023-05-16 02:41] VITALS: O2SAT 97
== END 2023-05-16 02:45 | disposition home or self-care (01) ==
LOC: M ED 18:41
DX: R10.9 Unspecified abdominal pain (principal); D72.829 Elevated white blood cell count, unspecified; E78.5 Hyperlipidemia, unspecified; J45.909 Unspecified asthma, uncomplicated; F41.1 Generalized anxiety disorder; I12.0 Hypertensive chronic kidney disease with stage 5 chronic kidney disease or end stage renal disease; Z91.09 Other allergy status, other than to drugs and biological substances; Z79.1 Long term (current) use of non-steroidal anti-inflammatories (NSAID); Z79.899 Other long term (current) drug therapy

== ENCOUNTER → 2023-05-18 | Outpatient (CLI) | payer MEDICARE, OTHER ==
[~2023-05-18] MED LIST changes: +BACT400T PO; +DOXY-444 PO; +LASI80TA3 PO; +TUMS750C5 PO; +VALA500T5 PO
[2023-05-18 13:23] LABS: BASO # 0.1 10^3/uL (0.0-0.2); BASO % 0.9 % (0.0-1.0); EOS # 0.3 10^3/uL (0.0-0.5); EOS % 3.8 % (0.0-3.0); HEMATOCRIT 41.8 % (42.0-52.0); HEMOGLOBIN 13.8 g/dl (13.5-17.5); LYMPH % 12.5 % (24.0-44.0); MEAN CORPUSCULAR VOLUME 112.1 fl (80.0-96.0); MONO # 0.8 10^3/uL (0.0-0.8); MONO % 9.7 % (2.0-8.0); NEUTROPHILS # 5.9 10^3/uL (1.5-8.5); NEUTROPHILS % 72.1 % (36.0-66.0); PLATELET COUNT, AUTOMATED 288 10^3/uL (150-450); RED BLOOD COUNT 3.73 10^6/uL (4.30-6.10); WHITE BLOOD COUNT 8.1 10^3/uL (4.0-10.0)
[2023-05-18 13:50] LABS: ERYTHROCYTE SEDIMENTATION RATE 56 mm/hr (0-20)
== END ==
LOC: M WUC 09:25
PROVIDERS: ATTEND Nurse Practitioner Adult Health
DX: M25.50 Pain in unspecified joint (principal); R53.83 Other fatigue

== ENCOUNTER → 2023-12-27 | Outpatient (CLI) | payer MEDICARE, OTHER ==
[~2023-12-27] MED LIST changes: +DOXY-440 PO; -DOXY-444 PO; -FEXO-157 PO; +FEXO-63 PO; +ROSU5TAB40; -ROSU5TAB5
[2023-12-27 12:28] LABS: BASO # 0.1 10^3/uL (0.0-0.2); BASO % 1.1 % (0.0-1.0); EOS # 0.2 10^3/uL (0.0-0.5); EOS % 3.9 % (0.0-3.0); HEMATOCRIT 44.3 % (42.0-52.0); HEMOGLOBIN 14.6 g/dl (13.5-17.5); LYMPH # 0.9 10^3/uL (1.5-5.0); LYMPH % 14.3 % (24.0-44.0); MEAN CORPUSCULAR HEMOGLOBIN 37.2 pg (27.0-33.0); MONO # 0.9 10^3/uL (0.0-0.8); NEUTROPHILS # 4.1 10^3/uL (1.5-8.5); NEUTROPHILS % 65.5 % (36.0-66.0); PLATELET COUNT, AUTOMATED 166 10^3/uL (150-450); RED BLOOD COUNT 3.92 10^6/uL (4.30-6.10); WHITE BLOOD COUNT 6.2 10^3/uL (4.0-10.0)
[2023-12-27 13:11] LABS: FREE T4 0.93 NG/DL (0.89-1.76)
[2023-12-27 13:12] LABS: THYROID STIMULATING HORMONE 6.861 uIU/ML (0.55-4.78)
[2023-12-27 13:14] LABS: ALBUMIN 3.4 G/DL (3.2-5.2); BILIRUBIN,TOTAL 0.4 MG/DL (0.3-1.2); CHOLESTEROL RISK RATIO 3.25 (<5); CREATININE FOR GFR 8.1 MG/DL (0.70-1.30); GLOMERULAR FILTRATION RATE 7.1 (>49); LDL CHOLESTEROL 73.2 MG/DL (<100); POTASSIUM SERUM 4.4 MMOL/L (3.5-5.1); TOTAL PROTEIN 5.8 G/DL (5.7-8.2)
== END ==
LOC: M WUC 09:43
PROVIDERS: ATTEND Family Medicine
DX: E78.5 Hyperlipidemia, unspecified (principal); I12.0 Hypertensive chronic kidney disease with stage 5 chronic kidney disease or end stage renal disease

== ENCOUNTER → 2024-03-31 | Outpatient (REF) | payer MEDICARE, OTHER ==
[~2024-03-31] MED LIST changes: -FEXO-117 PO; +FEXO-193 PO; -ROSU5TAB40; +ROSU5TAB49
== END ==
LOC: M SFHCDERM 16:42
PROVIDERS: ATTEND Physician Assistant
DX: D17.1 Benign lipomatous neoplasm of skin and subcutaneous tissue of trunk (principal)

== ENCOUNTER → 2024-06-12 | Outpatient (CLI) | payer MEDICARE, OTHER ==
[2024-06-12 13:09] LABS: FREE T4 1.19 NG/DL (0.89-1.76); THYROID STIMULATING HORMONE 3.221 uIU/ML (0.55-4.78)
== END ==
LOC: M WUC 09:39
PROVIDERS: ATTEND Nurse Practitioner Adult Health
DX: E03.9 Hypothyroidism, unspecified (principal)

== ENCOUNTER → 2024-11-10 | Outpatient (CLI) | payer MEDICARE, OTHER | LOC: M ONCR 09:17 | PROVIDERS: ATTEND General Practice | DX: C83.14 Mantle cell lymphoma, lymph nodes of axilla and upper limb (principal); C83.11 Mantle cell lymphoma, lymph nodes of head, face, and neck; Z92.21 Personal history of antineoplastic chemotherapy; Z92.3 Personal history of irradiation; Z85.828 Personal history of other malignant neoplasm of skin; J30.89 Other allergic rhinitis; Z79.82 Long term (current) use of aspirin; Z79.899 Other long term (current) drug therapy ==

== ENCOUNTER → 2024-12-02 | Outpatient (RCR) | payer MEDICARE, OTHER | LOC: M ONCR 11-20 09:56 | PROVIDERS: ATTEND General Practice | DX: Z51.0 Encounter for antineoplastic radiation therapy (principal); C83.14 Mantle cell lymphoma, lymph nodes of axilla and upper limb ==

== ENCOUNTER 2024-12-26 09:01 | Outpatient (RCR) | payer MEDICARE, OTHER | END 2025-01-02 | LOC: M ONCR 09:01 | PROVIDERS: ATTEND General Practice | DX: Z51.0 Encounter for antineoplastic radiation therapy (principal); C83.14 Mantle cell lymphoma, lymph nodes of axilla and upper limb ==

== ENCOUNTER → 2024-12-30 | Outpatient (CLI) | payer MEDICARE, OTHER ==
[2024-12-30 12:51] LABS: BASO # 0.1 10^3/uL (0.0-0.2); BASO % 1.1 % (0.0-1.0); EOS # 0.3 10^3/uL (0.0-0.5); EOS % 4.1 % (0.0-3.0); LYMPH # 1.6 10^3/uL (1.5-5.0); LYMPH % 23.8 % (24.0-44.0); MONO # 0.7 10^3/uL (0.0-0.8); MONO % 11.2 % (2.0-8.0); NEUTROPHILS # 3.9 10^3/uL (1.5-8.5); NEUTROPHILS % 59.5 % (36.0-66.0); PLATELET COUNT, AUTOMATED 142 10^3/uL (150-450)
[2024-12-30 13:06] LABS: ALT/SGPT 34.0 U/L (7.0-40); AST/SGOT 25.0 U/L (<34); CALCIUM LEVEL 8.4 MG/DL (8.3-10.6); CARBON DIOXIDE LEVEL 27.0 MMOL/L (20-31); CHLORIDE LEVEL 107.0 MMOL/L (98-107); CHOLESTEROL LEVEL 154.0 MG/DL (<200); CHOLESTEROL RISK RATIO 3.58 (<5); CREATININE FOR GFR 8.28 MG/DL (0.70-1.30); FREE T4 1.06 NG/DL (0.89-1.76); GLOMERULAR FILTRATION RATE 6.4 (>42); LDL CHOLESTEROL 91.4 MG/DL (<100); NON-HDL-C 111.0 MG/DL; POTASSIUM SERUM 4.5 MMOL/L (3.5-5.1); SODIUM LEVEL 144.0 MMOL/L (136-145); TRIGLYCERIDES LEVEL 98.0 MG/DL (<150)
== END ==
LOC: M WUC 10:09
PROVIDERS: ATTEND Family Medicine
DX: I12.0 Hypertensive chronic kidney disease with stage 5 chronic kidney disease or end stage renal disease (principal); E03.9 Hypothyroidism, unspecified

== ENCOUNTER → 2025-02-11 | Outpatient (CLI) | payer MEDICARE, OTHER | LOC: M ONCR 11:15 | PROVIDERS: ATTEND General Practice | DX: C83.14 Mantle cell lymphoma, lymph nodes of axilla and upper limb (principal); C83.11 Mantle cell lymphoma, lymph nodes of head, face, and neck; Z92.3 Personal history of irradiation; J30.89 Other allergic rhinitis; Z79.82 Long term (current) use of aspirin; Z79.899 Other long term (current) drug therapy ==

== ENCOUNTER 2025-02-24 13:37 | Outpatient (RCR) | payer MEDICARE, OTHER | END 2025-03-04 | LOC: M ONCR 13:37 | PROVIDERS: ATTEND General Practice | DX: Z51.0 Encounter for antineoplastic radiation therapy (principal); C83.14 Mantle cell lymphoma, lymph nodes of axilla and upper limb ==